=== PATIENT | male | born 1945 | race Caucasian/White ===

== ENCOUNTER 2019-08-26 10:07 | Inpatient (IN) | payer MEDICARE, OTHER, SELFPAY ==
[2019-08-26] VITALS (20 sets, daily range): BP systolic 117–164; BP diastolic 80–96; PULSE 64–101; RESP 16–22; TEMP 36.4–36.7; O2SAT 87–97; BMI 31.7
--- NOTE | 2019-08-26 10:37 | ED_ITS ---
Entered by Cha Sinha, acting as scribe for Aug 26, 2019 10:07 HPI - SOB/Dyspnea General: Chief Complaint: Shortness of Breath/Dyspnea Stated Complaint: Breathing issues Time Seen by Provider: 08/26/19 10:37 Source: patient and family Mode of arrival: ambulatory Limitations: no limitations and physical limitation History of Present Illness: HPI Narrative: 73 yo male presents with shortness of breath and cough. pt states this started a couple days ago. pt has had bilateral leg swelling post heart surgery. family states while in [facility] the pt was recieving breathing treatments but they did not send any home for him and he is having a hard time taking a deep breath. pt denies any other symptoms at this time. MD elicited complaint: shortness of breath and cough Context: other (recent heart surgery) Timing: constant Severity: moderate Exacerbating factors: exertion, coughing and deep breaths Relieving factors: nothing Associated symptoms: Reports other (bilateral leg swelling); Deny abdominal pain, chest pain, fever(s), nausea, polyuria or vomiting Related Data: Home oxygen amount: none Review of Systems Const: Denies: fever or chills Eyes: Denies: change in vision ENMT: Denies: throat pain or mouth pain Card: Denies: chest pain Resp: Reports: shortness of breath GI: Denies: abdominal pain, nausea, vomiting or diarrhea Musc: Denies: back pain or joint pain Skin/Breast: Denies: rash Neuro: Denies: headache or behavioral changes Psych: Reports: depression and suicidal ideation Endo: Denies: excessive urination Sonu/Lymph: Denies: easy bruising All/Imm: Denies: hives PFSH ED PFSH: Statuses (acute, chronic, etc) shown below reflect problem list status as previously entered and may not be historically accurate Surgical History (Updated 08/26/19 @ 16:10 by Jaron Alvarado MD) History of aortic valve replacement (Acute) History of coronary artery bypass graft x 3 (Acute) Family History (Updated 08/26/19 @ 16:02 by Jaron Alvarado MD) Other Diabetes Social History (Updated 08/26/19 @ 16:02 by Jaron Alvarado MD) Smoking and tobacco status: former smoker Alcohol intake: never Substance/Drug Use: never Physical Exam Const: COMMON NORMALS: no apparent distress and healthy appearing HENMT: COMMON NORMALS: normocephalic and external nose normal HEAD & SCALP: normocephalic NOSE: external nose normal and no nasal discharge (nasal dischage) Eye: COMMON NORMALS: PERRL PUPIL: Yes PERRL Neck/C-Spine: COMMON NORMALS: full ROM and no lymphadenopathy Chest: COMMONS NORMALS: inspection of chest normal Resp: COMMON NORMALS: normal respiratory effort and clear to auscultation bilaterally AUSCULTATION: clear to auscultation bilaterally Cardio: COMMON NORMALS: regular rate and regular rhythm RATE: regular rate RHYTHM: regular rhythm GI: COMMON NORMALS: soft to palpation PALPATION: Yes soft Extremity: COMMON NORMALS: normal to inspection, full ROM and normal capillary refill NARRATIVE EXTREMITY EXAM: 2 le edema Psych: COMMON NORMALS: mental status grossly normal and cooperative Skin: COMMON NORMALS: no rashes or lesions noted GENERAL SKIN EXAM: no rashes or lesions noted Course Vital Signs: Vital signs: Vital Signs Temperature 97.8 F 08/26/19 10:26 Pulse Rate 84 08/26/19 14:35 Respiratory Rate 16 08/26/19 14:35 Blood Pressure 117/82 08/26/19 14:35 Pulse Oximetry 96 08/26/19 14:35 MDM - SOB/Dyspnea MDM Narrative: Medical decision making narrative: Patient presents with dyspnea with pulmonary edema with versus pneumonia. Patient does have a history of CHF and given Lasix here. Patient also received antibiotics for possible pneumonia. He does have shortness of breath and symptoms consistent with CHF. I spoke to hospitalist and will admit. Lab Data: Labs: Lab Results 08/26/19 08/26/19 08/26/19 Range/Units 11:05 11:05 11:05 WBC 7.4 (4.0-10.0) 10^3/ uL RBC 4.63 (4.1-5.3) 10^6/u L Hgb 13.3 (11.7-16.6) g/dL Hct 40.0 L (42.0-52.0) % MCV 86.4 (80-94) fL MCH 28.7 (28.0-34.0) pg MCHC 33.3 (30.0-36.0) g/dL RDW 12.7 (12.1-15.1) % Plt Count 96 L (130-400) 10^3/c mm MPV 12.4 H (7.4-10.4) fL Neut % (Auto) 71.2 % Lymph % (Auto) 17.5 % [place] % (Auto) 8.7 % Eos % (Auto) 1.8 % Baso % (Auto) 0.1 % Neut # (Auto) 5.3 (1.8-7.7) 10^3/u L Lymph # (Auto) 1.3 (0.8-4.8) 10^3/u L [place] # (Auto) 0.6 (0.2-0.9) 10^3/u L Eos # (Auto) 0.1 (0.0-0.8) 10^3/u L Baso # (Auto) 0.0 (0.0-0.1) 10^3/u L Nucleated RBC % (a uto) 0 % Nucleated RBCs # 0.0 /100WBC Specimen Type Sample Site ABG pH (7.35-7.45) ABG pCO2 (35-45) mmHg ABG pO2 (80.0-100.0) mmH g ABG HCO3 (22-26) mmol/L ABG Base Excess (-2.0-2.0) mmol/ L Eze Test Hematocrit (42-52) % Hgb O2 Saturation (95-100) % FiO2 % Education And Training Coordinator ID Sodium 137 (136-145) mmol/L Potassium 3.9 (3.5-5.1) mmol/L Chloride 93 L (98-107) mmol/L Carbon Dioxide 33 H (22-29) mmol/L Anion Gap 14.9 (5-19) BUN 17 (8-23) mg/dL Creatinine 0.8 (0.7-1.2) mg/dL Glucose 126 H (74-106) mg/dL Calcium 9.8 (8.8-10.2) mg/Dl Total Bilirubin 0.7 (0.15-1.2) mg/dL AST 40 (0-40) U/L ALT 58 H (0-41) U/L Alkaline Phosphata se 97 (40-130) IU/L Troponin T Baselin e 60 H (0-15) ng/mL Troponin T 120 [place] (0-15) ng/mL Delta Troponin T (0-10) ABS# NT-Pro-B Natriuret Pep 1196 H (0-450) pg/mL Total Protein 6.4 L (6.6-8.7) g/dL Albumin 4.3 (3.5-5.2) g/dL Globulin 2.1 (1.3-4.6) g/dL 08/26/19 08/26/19 Range/Units 11:10 13:40 WBC (4.0-10.0) 10^3/ uL RBC (4.1-5.3) 10^6/u L Hgb (11.7-16.6) g/dL Hct (42.0-52.0) % MCV (80-94) fL MCH (28.0-34.0) pg MCHC (30.0-36.0) g/dL RDW (12.1-15.1) % Plt Count (130-400) 10^3/c mm MPV (7.4-10.4) fL Neut % (Auto) % Lymph % (Auto) % [place] % (Auto) % Eos % (Auto) % Baso % (Auto) % Neut # (Auto) (1.8-7.7) 10^3/u L Lymph # (Auto) (0.8-4.8) 10^3/u L [place] # (Auto) (0.2-0.9) 10^3/u L Eos # (Auto) (0.0-0.8) 10^3/u L Baso # (Auto) (0.0-0.1) 10^3/u L Nucleated RBC % (a uto) % Nucleated RBCs # /100WBC Specimen Type Arterial Sample Site Radial, left ABG pH 7.53 H (7.35-7.45) ABG pCO2 42.0 (35-45) mmHg ABG pO2 53.0 L (80.0-100.0) mmH g ABG HCO3 34.6 H (22-26) mmol/L ABG Base Excess 10.7 H (-2.0-2.0) mmol/ L Eze Test Pos Hematocrit 43.2 (42-52) % Hgb O2 Saturation 89.0 L (95-100) % FiO2 21.0 % Education And Training Coordinator ID ed Sodium (136-145) mmol/L Potassium (3.5-5.1) mmol/L Chloride (98-107) mmol/L Carbon Dioxide (22-29) mmol/L Anion Gap (5-19) BUN (8-23) mg/dL Creatinine (0.7-1.2) mg/dL Glucose (74-106) mg/dL Calcium (8.8-10.2) mg/Dl Total Bilirubin (0.15-1.2) mg/dL AST (0-40) U/L ALT (0-41) U/L Alkaline Phosphata se (40-130) IU/L Troponin T Baselin e (0-15) ng/mL Troponin T 120 [place] 63.91 H (0-15) ng/mL Delta Troponin T 3.91 (0-10) ABS# NT-Pro-B Natriuret Pep (0-450) pg/mL Total Protein (6.6-8.7) g/dL Albumin (3.5-5.2) g/dL Globulin (1.3-4.6) g/dL Imaging Data^: CXR: Attestation: I personally reviewed and interpreted this imaging study as follows: My impression: no acute abnormalities noted CT Chest: Radiologist's impression: Ordering Physician: Gagan Sandoval MD Date of Service: 08/26/19 Procedure(s): CT angio chest PE protcl [id number] Accession Number(s): [id number] cc: Gagan Sandoval MD PROCEDURE INFORMATION: Exam: CT Angiography Chest With Contrast Exam date and time: 08/26/2019 1:32 PM Age: 73 years old Clinical indication: Shortness of breath; Prior surgery; Surgery date: <1 month; Surgery type: Open heart; Additional info: Dyspnea TECHNIQUE: Imaging protocol: Computed tomographic angiography of the chest with intravenous contrast. 3D rendering: MIP and/or 3D reconstructed images were created by the technologist. Total DLP: 1162.54 mGy-cm Radiation optimization: All CT scans at this facility use at least one of these dose optimization techniques: automated exposure control; mA and/or kV adjustment per patient size (includes targeted exams where dose is matched to clinical indication); or iterative reconstruction. Contrast material: OMNI 350; Contrast volume: 95 ml; Contrast route: RT AC; COMPARISON: CT[place] [id number] 08/17/2019 4:40 PM FINDINGS: Pulmonary arteries: Normal. No pulmonary emboli. Aorta: Moderate aortic arch and great vessel atherosclerotic calcification. Lungs: Numerous small acinar opacities throughout portions of both lungs which appear new or increased since 08/17/19 suggesting acute mild alveolitis/pneumonitis. Minor scarring with calcification left lung apex. Scattered calcified granulomas, chronic. Pleural space: Small right pleural effusion, resolved. Extensive chronic pleural calcification along left hemidiaphragm. Heart: Recent sternotomy with aortic valve region stent in place. Mediastinum: Postoperative anterior mediastinal fluid and air, improving. Lymph nodes: Benign calcified hilar and mediastinal lymph nodes. Bones/joints: Unremarkable. No acute fracture. Soft tissues: Unremarkable. CT/CT angio chest PE protcl [id number] IMPRESSION: 1)Numerous small acinar opacities throughout portions of both lungs which appear new or increased since 08/17/19 suggesting acute mild alveolitis/pneumonitis. 2) recent sternotomy. Postoperative anterior mediastinal fluid and air, improving. EKG Data^: EKG 1: Attestation: I personally reviewed and interpreted this EKG as follows: EKG Interpretation Date: 08/26/19 EKG interpretation time: 11:23 Interpretation: afib hr 87 with no s tor t wave abnormalities qrs 127 qtc 443 EKG 2: Attestation: I personally reviewed and interpreted this EKG as follows: EKG Interpretation Date: 08/26/19 EKG interpretation time: 13:02 Interpretation: Atrial fib heart rate [address] or T wave abnormalities. Discharge Plan Discharge Admit Provider: Jaron Alvarado Coding Level of Care Code ED Director Of Undergraduate Admissions for Chg Fwd Exam Problem Focused The documentation recorded by the Bharath jorge Bridget Annette, accurately reflects the service I personally performed and the decisions made by , Gagan Sandoval MD Aug 26, 2019 10:07
--- NOTE | 2019-08-26 10:42 | XRR_ITS ---
PROCEDURE INFORMATION: Exam: XR Chest, 1 View Exam date and time: 08/26/2019 10:54 AM Age: 73 years old Clinical indication: Shortness of breath; Prior surgery; Surgery date: 6+ months; Surgery type: Open heart; Additional info: Dyspnea TECHNIQUE: Imaging protocol: XR of the chest Views: 1 view. COMPARISON: CR Chest 1 [place] [id number] 08/17/2019 2:35 PM FINDINGS: Lungs: Prominent bibasilar lung markings, chronic. Pleural space: Small left pleural effusion. Heart/Mediastinum: Prior CABG. Aortic valve stent in place. Diaphragm: Chronic pleural calcification along left hemidiaphragm. Bones/joints: Unremarkable. XR/XR chest 1V portable [id number] IMPRESSION: No apparent change from 08/17/19. Prior surgeries. Probable small left pleural effusion, unchanged.
--- NOTE | 2019-08-26 10:43 | ECG_ITS ---
Measurements Intervals [place] Rate: 87 P: [place]: 0 QRS: 29 QRSD: 127 T: 203 QT: 398 QTc: 481 ATRIAL FIBRILLATION MODERATE INTRAVENTRICULAR CONDUCTION DELAY ST DEVIATION AND MODERATE T-WAVE ABNORMALITY, CONSIDER LATERAL ISCHEMIA Compared to ECG 08/17/2019 16:05:24 Intraventricular conduction delay now present T-wave abnormality now present Possible ischemia now present Sinus rhythm no longer present Ventricular premature complex(es) no longer present Atrial abnormality no longer present Right-axis deviation no longer present Myocardial infarct finding no longer present Electronically Signed On 08-26-2019 11:23:22 HOT STRIP MILL INSPECTOR by Gloria Batista M.D. [id number]
[2019-08-26] MEDS: ipratropium-albuterol 3 mL Neb INHALATION ×3 (11:14→23:26)
[2019-08-26 11:23] LABS: ABG PH Result 7.53 (7.35-7.45); Arterial Blood Gas Hematocrit 43.2 % (42-52); Base Excess ABG 10.7 mmol/L (-2.0-2.0); Blood Gas Allen Test Pos; Blood Gas Sample Site Radial, left; Blood Gas Sample Type Arterial; HCO3 ABG 34.6 mmol/L (22-26)
[2019-08-26 11:34] LABS: Basophils % 0.1 %; Eosinophils # 0.1 10^3/uL (0.0-0.8); Eosinophils % 1.8 %; Hemoglobin 13.3 g/dL (11.7-16.6); Lymphocytes # 1.3 10^3/uL (0.8-4.8); Lymphocytes % 17.5 %; Mean Corpuscular HGB Conc 33.3 g/dL (30.0-36.0); Mean Corpuscular Hemoglobin 28.7 pg (28.0-34.0); Mean Corpuscular Volume 86.4 fL (80-94); Mean Platelet Volume 12.4 fL (7.4-10.4); Monocytes # 0.6 10^3/uL (0.2-0.9); Monocytes % 8.7 %; Neutrophils # 5.3 10^3/uL (1.8-7.7); Neutrophils % 71.2 %; Nucleated Red Blood Cells % 0 %; Platelet Count 96 10^3/cmm (130-400); Red Blood Count 4.63 10^6/uL (4.1-5.3); Red Cell Distribution Width 12.7 % (12.1-15.1); White Blood Count 7.4 10^3/uL (4.0-10.0)
[2019-08-26] MEDS: FUROsemide 10 mg/mL SDV 4mL 40 MG IVP ×2 (11:36→17:56)
[2019-08-26 12:00] LABS: Troponin(5th) Baseline 60 ng/mL (0-15)
[2019-08-26 12:08] LABS: Alanine Aminotransferase 58 U/L (0-41); Albumin Level 4.3 g/dL (3.5-5.2); Alkaline Phosphatase 97 IU/L (40-130); Anion Gap 14.9 (5-19); Aspartate Amino Transferase 40 U/L (0-40); Blood Urea Nitrogen 17 mg/dL (8-23); Calcium 9.8 mg/Dl (8.8-10.2); Carbon Dioxide 33 mmol/L (22-29); Chloride 93 mmol/L (98-107); Globulin 2.1 g/dL (1.3-4.6); Glucose 126 mg/dL (74-106); NT Pro B Type Natriuretic Pept 1196 pg/mL (0-450); Potassium 3.9 mmol/L (3.5-5.1); Sodium 137 mmol/L (136-145); Total Bilirubin 0.7 mg/dL (0.15-1.2); Total Protein 6.4 g/dL (6.6-8.7)
--- NOTE | 2019-08-26 12:36 | CTR_ITS ---
PROCEDURE INFORMATION: Exam: CT Angiography Chest With Contrast Exam date and time: 08/26/2019 1:32 PM Age: 73 years old Clinical indication: Shortness of breath; Prior surgery; Surgery date: <1 month; Surgery type: Open heart; Additional info: Dyspnea TECHNIQUE: Imaging protocol: Computed tomographic angiography of the chest with intravenous contrast. 3D rendering: MIP and/or 3D reconstructed images were created by the technologist. Total DLP: 1162.54 mGy-cm Radiation optimization: All CT scans at this facility use at least one of these dose optimization techniques: automated exposure control; mA and/or kV adjustment per patient size (includes targeted exams where dose is matched to clinical indication); or iterative reconstruction. Contrast material: OMNI 350; Contrast volume: 95 ml; Contrast route: RT AC; COMPARISON: CTA Chest-Pulmonary Emb [id number] 08/17/2019 4:40 PM FINDINGS: Pulmonary arteries: Normal. No pulmonary emboli. Aorta: Moderate aortic arch and great vessel atherosclerotic calcification. Lungs: Numerous small acinar opacities throughout portions of both lungs which appear new or increased since 08/17/19 suggesting acute mild alveolitis/pneumonitis. Minor scarring with calcification left lung apex. Scattered calcified granulomas, chronic. Pleural space: Small right pleural effusion, resolved. Extensive chronic pleural calcification along left hemidiaphragm. Heart: Recent sternotomy with aortic valve region stent in place. Mediastinum: Postoperative anterior mediastinal fluid and air, improving. Lymph nodes: Benign calcified hilar and mediastinal lymph nodes. Bones/joints: Unremarkable. No acute fracture. Soft tissues: Unremarkable. CT/CT angio chest PE protcl [id number] IMPRESSION: 1)Numerous small acinar opacities throughout portions of both lungs which appear new or increased since 08/17/19 suggesting acute mild alveolitis/pneumonitis. 2) recent sternotomy. Postoperative anterior mediastinal fluid and air, improving. Radiation Dose CTDIVOL = (mGy): DLP = 1162.54 (mGy-cm)
[2019-08-26] MEDS: morphine 4 mg/mL SDV 1 mL IVP (12:53)
[2019-08-26 14:01] LABS: Troponin 5 2HR 63.91 ng/mL (0-15)
[2019-08-26] MEDS: iohexol 350 mg/mL 100 mL Btl IV (14:08)
[2019-08-26 14:13] LABS: Troponin 5 2HR Delta 3.91 ABS# (0-10)
[2019-08-26] MEDS: cefTRIAXone 1,000 MG in sodium chloride 0.9% (plus) 50 ML 100 MG IV (15:35)
[2019-08-26] MEDS: azithromycin 500 MG in sodium chloride 0.9% 250 ML 250 MG IV (15:53)
--- NOTE | 2019-08-26 15:55 | PM.HP ---
Providers/Chief Complaint Admitting Physician: Jaron Alvarado MD Primary Care Provider: Дмитрий Santiago DO Chief Complaint: Breathing issues History of Present Illness Dakota Mercado is a 73 year old male with a past medical history of COPD, atrial fibrillation on Eliquis, CAD status post triple vessel CABG, aortic stenosis status post aortic valve replacement, hyperlipidemia, hypertension, diastolic CHF, abdominal aortic aneurysm, carotid artery stenosis, who presents to the emergency room due to complaints of cough, shortness of breath, orthopnea, paroxysmal nocturnal dyspnea. Patient states that on August 10, 2019 he had a triple-vessel coronary artery bypass graft with aortic valve replacement at [facility] in [place], he was discharged on August 15. But when he got home, he lives in [facility], with 2 sons, he complained of difficulty catching his breath, productive cough, shortness of breath, shortness of breath at rest, paroxysmal nocturnal dyspnea, orthopnea. He was transferred back to [facility], was treated for pneumonia, he is not sure what else happened during that hospitalization. But states that he got back, August 17, states that since then he has not gotten any better, still quite short of breath, short of breath at rest, has significant orthopnea, paroxysmal nocturnal dyspnea, difficulty sleeping, has chest wall pain, has a good appetite, no nausea, no vomiting denies LOC, denies lightheadedness, denies dizziness. Denies sick contacts. Denies fevers. Review of Systems Const: Reports: fatigue, malaise and daytime sleepiness; Denies: fever or chills Eyes: Denies: change in vision ENMT: Denies: nasal discharge Card: Reports: shortness of breath on exertion and shortness of breath when lying down; Denies: chest pain, palpitations, irregular heart rhythm or syncope Resp: Reports: shortness of breath, productive cough and chest congestion GI: Denies: abdominal pain, nausea, vomiting, coffee grounds in vomit, difficulty swallowing or painful bowel movements : Denies: flank pain, difficulty urinating, painful urination, urinary frequency, urinary urgency or urinary hesitancy Musc: Denies: neck pain or back pain Skin/Breast: Denies: rash or itching Neuro: Denies: headache Psych: Denies: anxiety or depression Endo: Reports: tired all the time; Denies: excessive urination or excessive thirst Medications/Allergies Home Medications Medication Instructions Recorded Confirmed Last Taken Type albuterol sulfate 1 puff INHALATION Q4H PRN 08/26/19 08/26/19 08/26/19 History amiodarone 200 mg PO DAILY 08/26/19 08/26/19 08/26/19 History apixaban [Eliquis] 5 mg PO DAILY 08/26/19 08/26/19 08/26/19 History aspirin 1 tab PO DAILY 08/26/19 08/26/19 08/25/19 History atorvastatin [Lipitor] 40 mg PO DAILY 08/26/19 08/26/19 08/26/19 History colchicine [Colcrys] 0.6 mg PO DAILY 08/26/19 08/26/19 08/26/19 History diltiazem HCl 30 mg PO Q6H 08/26/19 08/26/19 08/26/19 History doxycycline hyclate 100 mg PO BID 08/26/19 08/26/19 08/25/19 History finasteride 5 mg PO DAILY 08/26/19 08/26/19 08/25/19 History furosemide [Lasix] 40 mg PO BID 08/26/19 08/26/19 08/26/19 History guaifenesin [Mucinex] 600 mg PO BID 08/26/19 08/26/19 08/25/19 History ibuprofen 400 mg PO Q4H PRN 08/26/19 08/26/19 08/26/19 History potassium chloride 20 meq PO BID 08/26/19 08/26/19 08/25/19 History tamsulosin [Flomax] 0.4 mg PO BID 08/26/19 08/26/19 08/25/19 History Allergies Allergy/AdvReac Type Severity Reaction Status Date / Time No Known Drug Allergies Allergy Unknown Verified 08/26/19 10:34 PFSH Acute PFSH: Statuses (acute, chronic, etc) shown below reflect problem list status as previously entered and may not be historically accurate Surgical History (Updated 08/26/19 @ 16:10 by Jaron Alvarado MD) History of aortic valve replacement (Acute) History of coronary artery bypass graft x 3 (Acute) Family History (Updated 08/26/19 @ 16:02 by Jaron Alvarado MD) Other Diabetes Social History (Updated 08/26/19 @ 16:02 by Jaron Alvarado MD) Smoking and tobacco status: former smoker Alcohol intake: never Substance/Drug Use: never Vitals/I&O/Wt Last Vital Signs Temp 97.8 F 08/26/19 10:26 Pulse 84 08/26/19 14:35 Resp 16 08/26/19 14:35 BP 117/82 08/26/19 14:35 Pulse Ox 96 08/26/19 14:35 Weight last 48 hrs Weight 100.244 kg Physical Exam Const: COMMON NORMALS: no apparent distress EXAM LIMITATIONS: no altered mental status GENERAL APPEARANCE: cooperative and comfortable NUTRITIONAL APPEARANCE: obese HENMT: COMMON NORMALS: normocephalic Eye: COMMON NORMALS: PERRL and EOMs intact bilaterally Neck/C-Spine: COMMON NORMALS: no lymphadenopathy and no JVD Lymph: LYMPHATIC: no lymphadenopathy noted Chest: COMMONS NORMALS: inspection of chest normal (Has a sternotomy scar) Resp: COMMON NORMALS: normal respiratory effort, no retractions and no use of accessory muscles AUSCULTATION: wheezes throughout Cardio: COMMON NORMALS: no JVD and regular rate RATE: regular rate HEART SOUNDS: S1 normal, S2 normal and no murmurs GI: COMMON NORMALS: normal to inspection, nondistended, normoactive bowel sounds, soft to palpation, non-tender and no hepatosplenomegaly : COMMON NORMALS: Yes no CVA tenderness Back/Pelvis: COMMON NORMALS: no CVA tenderness Extremity: COMMON NORMALS: normal capillary refill, no clubbing, cyanosis or edema and no pedal edema GENERAL: Yes normal exam except as noted Neuro: COMMON NORMALS: oriented x3, CN's II-XII intact bilaterally, moves all extremities and no focal motor deficits Psych: COMMON NORMALS: mental status grossly normal Data Micro: Micro: Microbiology 08/26/19 15:14 Blood Culture - Pr eliminary Blood SPECIMEN [facility] 08/26/19 15:05 Blood Culture - Pr eliminary Blood SPECIMEN [facility] Imaging^: CTA Chest: Radiologist's impression: 1)Numerous small acinar opacities throughout portions of both lungs which appear new or increased since 08/17/19 suggesting acute mild alveolitis/pneumonitis. 2) recent sternotomy. Postoperative anterior mediastinal fluid and air, improving. EKG^: EKG 1: My Interpretation: Atrial flutter, left bundle branch block, A&P Assessment and plan (1) Acute respiratory failure with hypoxia: Likely secondary to atypical pneumonia, COPD exacerbation, diastolic CHF Plan: -Admit to cardiac IMC -Telemetry monitoring -Lasix 40 mg IV twice daily -Rocephin and azithromycin -Solu-Medrol followed by prednisone -Oxygen therapy -Blood cultures, respiratory cultures, urine bacterial antigens Status: Acute Code(s): J96.01 - Acute respiratory failure with hypoxia (2) CAD (coronary artery disease): -Status post triple vessel bypass graft August 10 2018 Status: Acute Code(s): I25.10 - Atherosclerotic heart disease of [place] coronary artery without angina pectoris (3) COPD (chronic obstructive pulmonary disease): Status: Acute Code(s): J44.9 - Chronic obstructive pulmonary disease, unspecified (4) Diastolic CHF: Status: Acute Code(s): I50.30 - Unspecified diastolic (congestive) heart failure (5) Atrial fibrillation: Continue Cardizem, amiodarone, Eliquis Status: Acute Code(s): I48.91 - Unspecified atrial fibrillation (6) Hyperlipidemia: Status: Acute Code(s): E78.5 - Hyperlipidemia, unspecified (7) Hypertension: Status: Acute Code(s): I10 - Essential (primary) hypertension (8) Carotid artery stenosis: Status: Acute Code(s): I65.29 - Occlusion and stenosis of unspecified carotid artery (9) History of aortic valve replacement: August 10, 2019 in [facility], will get records Status: Acute Code(s): Z95.2 - Presence of prosthetic heart valve Attestations Medical Necessity Statement*: Patient requires hospitalization, greater than 2 midnights, acute respiratory failure multifactorial Coding Level of Care Code Acute 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
--- NOTE | 2019-08-26 16:43 | ECG_ITS ---
Measurements Intervals [place] Rate: 84 P: [place]: 0 QRS: 30 QRSD: 118 T: 177 QT: 387 QTc: 458 ATRIAL FIBRILLATION WITH ABERRANT CONDUCTION OR VENTRICULAR PREMATURE COMPLEXES MODERATE INTRAVENTRICULAR CONDUCTION DELAY [110+ ms QRS DURATION] ST DEVIATION AND MODERATE T-WAVE ABNORMALITY, CONSIDER LATERAL ISCHEMIA [-0.1+ mV T WAVE IN I/aVL/V5/V6] Compared to ECG 08/26/2019 11:23:42 Ventricular premature complex(es) now present Aberrant conduction of supraventricular beat(s) now present T-wave abnormality still present Possible ischemia still present Electronically Signed On 08-26-2019 13:29:07 GROUP CONTROLLER by Gloria Batista M.D. [id number]
[2019-08-26] MEDS: tamsulosin 0.4 mg Capsule PO (17:57)
[2019-08-26] MEDS: dilTIAZem 30 mg Tablet PO ×2 (17:57→23:18)
[2019-08-26] MEDS: guaiFENesin 600 mg Tablet PO (17:57)
[2019-08-26] MEDS: apixaban 5 mg Tablet PO (17:57)
[2019-08-26 18:00] LABS: Troponin 5 6HR 65.75 ng/L (0-15)
[2019-08-26] MEDS: lanolin oint 7 gm 1 APPLIC TOPICAL (19:52)
[2019-08-26 19:53] LABS: Troponin 5 6HR Delta 1.84 ng/L (0-12)
[2019-08-27] VITALS (19 sets, daily range): BP systolic 134–162; BP diastolic 66–90; PULSE 52–70; RESP 16–22; TEMP 35.9–36.5; O2SAT 92–99
[2019-08-27] MEDS: ipratropium-albuterol 3 mL Neb INHALATION ×6 (03:34→23:09)
[2019-08-27] MEDS: dilTIAZem 30 mg Tablet PO ×3 (05:27→17:06)
[2019-08-27 06:11] LABS: Basophils % 0.2 %; Hemoglobin 12.6 g/dL (11.7-16.6); Lymphocytes # 0.5 10^3/uL (0.8-4.8); Lymphocytes % 9.3 %; Mean Corpuscular HGB Conc 32.3 g/dL (30.0-36.0); Mean Corpuscular Hemoglobin 28.4 pg (28.0-34.0); Mean Platelet Volume 11.9 fL (7.4-10.4); Monocytes # 0.1 10^3/uL (0.2-0.9); Neutrophils # 4.4 10^3/uL (1.8-7.7); Neutrophils % 88.1 %; Nucleated Red Blood Cells % 0 %; Platelet Count 80 10^3/cmm (130-400); Red Blood Count 4.43 10^6/uL (4.1-5.3); Red Cell Distribution Width 12.8 % (12.1-15.1)
[2019-08-27 06:31] LABS: Alanine Aminotransferase 64 U/L (0-41); Albumin Level 3.9 g/dL (3.5-5.2); Alkaline Phosphatase 106 IU/L (40-130); Anion Gap 13.1 (5-19); Aspartate Amino Transferase 41 U/L (0-40); Blood Urea Nitrogen 18 mg/dL (8-23); Carbon Dioxide 35 mmol/L (22-29); Chloride 92 mmol/L (98-107); Glucose 173 mg/dL (74-106); Magnesium 2.1 mg/dL (1.7-2.3); Phosphorus 3.9 mg/dL (2.5-4.5); Potassium 4.1 mmol/L (3.5-5.1); Sodium 136 mmol/L (136-145); Total Bilirubin 0.5 mg/dL (0.15-1.2); Total Protein 6.9 g/dL (6.6-8.7)
[2019-08-27] MEDS: amiodarone 200 mg Tablet PO (08:53)
[2019-08-27] MEDS: aspirin 81 mg EC Tablet PO (08:53)
[2019-08-27] MEDS: atorvastatin 40 mg Tablet PO (08:53)
[2019-08-27] MEDS: finasteride 5 mg Tablet PO (08:53)
[2019-08-27] MEDS: tamsulosin 0.4 mg Capsule PO ×2 (08:53→17:06)
[2019-08-27] MEDS: apixaban 5 mg Tablet PO ×2 (08:53→17:06)
[2019-08-27] MEDS: guaiFENesin 600 mg Tablet PO ×2 (08:53→17:06)
[2019-08-27] MEDS: cefTRIAXone 1,000 MG in sodium chloride 0.9% (plus) 50 ML 100 MG IV (08:58)
[2019-08-27] MEDS: FUROsemide 10 mg/mL SDV 4mL 40 MG IVP ×3 (09:40→22:41)
--- NOTE | 2019-08-27 11:08 | USCV_ITS ---
Dakota Mercado Age: 73 Gender: M : 1945 Exam Date: 08/27/2019 12:22 Ordering Phys: Jaron Alvarado MD Technologist: Meera Waters Exam Location: [facility] Indication: SOB, SIMONA BP: 138 / 90 HR: 59 Rhythm: Sinus Technical Quality: Adequate MEASUREMENTS (Male / Female) Normal Values 2D ECHO LV Diastolic Diameter PLAX 4.7 cm 4.2 - 5.9 / 3.9 - 5.3 cm LV Systolic Diameter PLAX 2.9 cm IVS Diastolic Thickness 1.2 cm 0.6 - 1.0 / 0.6 - 0.9 cm IVS Systolic Thickness 2.0 cm LVPW Diastolic Thickness 1.3 cm 0.6 - 1.0 / 0.6 - 0.9 cm LVPW Systolic Thickness 1.9 cm LVOT Diameter 2.1 cm LV Ejection Fraction 2D Teich 67.0 % LV Ejection Fraction MOD 2C 80.7 % LV Ejection Fraction 2C AL 80.7 % LA Diameter 4.3 cm LA Width 3.1 cm LA Height 6.4 cm RA Width 3.5 cm RA Height 4.5 cm M-MODE LV Diastolic Diameter MM 5.6 cm 4.2 - 5.9 / 3.9 - 5.3 cm LV Systolic Diameter MM 3.9 cm LV Ejection Fraction MM Teich 58.6 % IVS Diastolic Thickness MM 1.1 cm 0.6 - 1.0 / 0.6 - 0.9 cm IVS Systolic Thickness MM 1.1 cm LVPW Diastolic Thickness MM 1.4 cm 0.6 - 1.0 / 0.6 - 0.9 cm LVPW Systolic Thickness MM 2.0 cm Aortic Annulus Diameter 3.6 cm LA Ao Ratio MM 1.2 MV E Point Septal Separation 0.5 cm DOPPLER AV Peak Velocity 338.0 cm/s LVOT Peak Velocity 140.0 cm/s AV Area Cont Eq vti 1.3 cm squared AV Area Cont Eq pk 1.5 cm squared MV Peak Velocity 121.0 cm/s MV Area PHT 2.8 cm squared Mitral E to A Ratio 0.7 MV E' Velocity 5.0 cm/s Mitral E to MV E' Ratio 12.9 Mitral E to LV E' Lateral Ratio 19.3 Mitral E to LV E' Septal Ratio 9.8 TR Peak Velocity 299.0 cm/s TR Peak Gradient 35.7 mmHg Right Atrial Pressure 3.0 mmHg Pulmonary Artery Systolic Pressu 38.8 mmHg PV Peak Velocity 156.0 cm/s RV Acceleration Time 0.1 s FINDINGS Left Ventricle Normal left ventricular cavity size. Normal left ventricular systolic function. No regional wall motion abnormalities. Left ventricular ejection fraction is estimated at 58 %. No regional wall motion abnormalities. Grade II/IV diastolic dysfunction, moderately elevated filling pressures. Right Ventricle The right ventricle is normal in size and function. Right Atrium The right atrium is normal in size. Left Atrium The left atrium is normal in size. Mitral Valve Moderately thickened mitral valve. Moderate mitral annular calcification. No mitral valve stenosis. Trace mitral valve regurgitation. Aortic Valve Possible bioprosthetic aortic valve sitting in normal position without valvular or perivalvular leak. Tricuspid Valve Trace tricuspid valve regurgitation. Pulmonic Valve Structurally normal pulmonic valve without significant stenosis. There is no pulmonic regurgitation. Pericardium Normal pericardium without effusion. Aorta Normal ascending aorta dimension. CONCLUSIONS 1-Normal left ventricular cavity size. Normal left ventricular systolic function. No regional wall motion abnormalities. Left ventricular ejection fraction is estimated at 58 %. No regional wall motion abnormalities. Grade II/IV diastolic dysfunction, moderately elevated filling pressures. 2-Moderately thickened mitral valve. Moderate mitral annular calcification. No mitral valve stenosis. Trace mitral valve regurgitation. 3-Possible prosthetic valve sitting in normal position without significant valvular or perivalvular leak. 4-Trace tricuspid valve regurgitation. 5-There is no pericardial effusion. 6-When compared to the prior echocardiogram dated 04/24/2019 there appeared to be possible bioprosthetic aortic valve sitting and working in normal position without valvular or perivalvular leak. Laureen Squires MD (Electronically Signed) Final Date: 27 August 2019 17:29 S
[2019-08-27] MEDS: predniSONE 20 mg Tablet 40 MG PO (12:20)
[2019-08-27] MEDS: colchicine 0.6 mg Tablet PO (12:21)
--- NOTE | 2019-08-27 12:37 | PC.RESP ---
Patient given information on Pulmonary Rehab.
--- NOTE | 2019-08-27 15:31 | US_ITS ---
WS: [id number] Gallbladder ultrasound, 08/27/2019 Clinical Data: us liver Comparison: None. Findings: The gallbladder shows no sludge or stone. The wall is not thickened with no pericholecystic fluid. The common bile duct is 4.1 mm and there are no intraductal abnormalities. Liver shows no cysts, masses or dilated intrahepatic ducts. The liver is enlarged measuring 21.51 cm in greatest AP diameter. The pancreas is obscured by overlying bowel gas but no cyst, pseudocyst, or evidence of pancreatitis is noted. Right kidney measures 13.6 cm with a cyst measuring 1.61 x 1.79 x 2.03 cm. The aorta and inferior carlos a cava show no vascular abnormalities. US/US abdomen limited [id number] Impression: 1. Negative gallbladder. 2. Enlarged liver. 3. Small right renal cyst.
[2019-08-27] MEDS: azithromycin 500 MG in sodium chloride 0.9% 250 ML 250 MG IV (15:50)
[2019-08-27 16:41] LABS: Hepatitis A Antibody IgM. Non-Reactive (Nonreactive); Hepatitis B Core IgM Non-Reactive (Nonreactive); Hepatitis B Surface Antigen. Non-Reactive (Nonreactive); Hepatitis C Virus Antibody Non-Reactive (Nonreactive)
--- NOTE | 2019-08-27 17:42 | P.PN_ITS ---
Subjective Subjective: Interval history: This morning, patient sitting up into a chair, states his breathing has improved, denies chest pain, denies palpitations, no lightheadedness, no dizziness, no nausea, no vomiting, Vitals/I&O/Wt Last Vital Signs Temp 97.6 F 08/27/19 15:00 Pulse 63 08/27/19 15:25 Resp 18 08/27/19 15:19 BP 157/66 08/27/19 15:00 Pulse Ox 95 08/27/19 15:19 08/27/19 08/27/19 08/27/19 06:59 14:59 22:59 Intake Total 960 / 1010 820 / 820 220 / 1040 Output Total 500 / 2300 1050 / 1050 Balance 460 / -1290 -230 / -230 220 / -10 Weight last 48 hrs Weight 101.151 kg Weight 101.151 kg Weight 100.244 kg Physical Exam Const: COMMON NORMALS: no apparent distress and oriented x3 EXAM LIMITATION S: no altered mental status GENERAL APPEARANCE: cooperative and comfortable NUTRITIONAL APPEARANCE: obese HENMT: COMMON NORMALS: normocephalic HEAD & SCALP: normocephalic Eye: COMMON NORMALS: PERRL and EOMs intact bilaterally PUPIL: Yes PERRL Neck/C-Spine: COMMON NORMALS: no lymphadenopathy and no JVD Lymph: LYMPHATIC: no lymphadenopathy noted Chest: COMMONS NORMALS: inspection of chest normal (Has a sternotomy scar) Resp: COMMON NORMALS: normal respiratory effort, no retractions and no use of accessory muscles AUSCULTATION: wheezes throughout Cardio: COMMON NORMALS: no JVD, regular rate, S1 normal heart sound and S2 no rmal heart sound RATE: regular rate HEART SOUNDS: S1 normal, S2 normal and no murmurs GI: COMMON NORMALS: normal to inspection, nondistended, normoactive bowel sounds, soft to palpation, non-tender and no hepatosplenomegaly PALPATION: Yes soft and Yes no hepatosplenomegaly : COMMON NORMALS: Yes no CVA tenderness BLADDER/KIDNEY EXAM: Yes no CVA tenderness Back/Pelvis: COMMON NORMALS: no CVA tenderness Extremity: COMMON NORMALS: normal capillary refill, no clubbing, cyanosis or edema and no pedal edema GENERAL: Yes normal exam except as noted Neuro: COMMON NORMALS: oriented x3 Data Micro: Micro: Microbiology 08/26/19 15:05 Blood Culture - Pr eliminary Blood NEGATIVE TO MICA E 08/26/19 15:14 Blood Culture - Pr eliminary Blood NEGATIVE TO MICA E 08/27/19 04:10 Bacterial Antigens - Final Urine,Voided A&P Assessment and plan (1) Acute respiratory failure with hypoxia: Likely secondary to atypical pneumonia, COPD exacerbation, diastolic CHF Plan: -Admit to cardiac IMC -Telemetry monitoring -Lasix 40 mg IV twice daily -Rocephin and azithromycin -Prednisone -Oxygen therapy -Blood cultures, respiratory cultures, urine bacterial antigens Status: Acute Code(s): J96.01 - Acute respiratory failure with hypoxia (2) CAD (coronary artery disease): -Status post triple vessel bypass graft August 10 2018 Status: Acute Code(s): I25.10 - Atherosclerotic heart disease of [place] coronary artery without angina pectoris (3) COPD (chronic obstructive pulmonary disease): Status: Acute Code(s): J44.9 - Chronic obstructive pulmonary disease, unspecified (4) Diastolic CHF: Status: Acute Code(s): I50.30 - Unspecified diastolic (congestive) heart failure (5) Atrial fibrillation: Continue Cardizem, amiodarone, Eliquis Status: Acute Code(s): I48.91 - Unspecified atrial fibrillation (6) Hyperlipidemia: Status: Acute Code(s): E78.5 - Hyperlipidemia, unspecified (7) Hypertension: Status: Acute Code(s): I10 - Essential (primary) hypertension (8) Carotid artery stenosis: Status: Acute Code(s): I65.29 - Occlusion and stenosis of unspecified carotid artery (9) History of aortic valve replacement: August 10, 2019 in [facility], will get records Status: Acute Code(s): Z95.2 - Presence of prosthetic heart valve (10) Sinus bradycardia: Status: Acute Code(s): R00.1 - Bradycardia, unspecified (11) Sinus pause: -Patient's telemetry monitoring clinic showing frequent sinus pauses, sinus bradycardia, patient asymptomatic Plan: -We will get a cardiac echocardiogram -Cardiology has been consulted Status: Acute Code(s): I45.5 - Other specified heart block Attestations Medical Necessity Statement*: Patient requires hospitalization, for acute respiratory failure, sinus pauses Coding Level of Care Code Acute [employer] for [facility] Fwd Diagnoses Acute respiratory failure with hypoxia J96.01 CAD (coronary artery disease) I25.10 COPD (chronic obstructive pulmonary disease) J44.9 Diastolic CHF I50.30 Atrial fibrillation I48.91 Hyperlipidemia E78.5 Hypertension I10 Carotid artery stenosis I65.29 History of aortic valve replacement Z95.2 Sinus bradycardia R00.1 Sinus pause I45.5
--- NOTE | 2019-08-27 19:06 | PC.NURSE ---
INTRODUCTION OF STAFF AND REPORT RECEIVED, AIDET. SON CALLED TO CHECK ON PT, REPORT RELAYED.
--- NOTE | 2019-08-27 19:24 | PM.CONSULT ---
Providers/Reason For Consult Consulting Physican/Specialty*: Cardiology Reason for Consult*: Decompensated diastolic heart failure/significant bradycardia Attending Physician: Jaron Alvarado MD Primary Care Provider: Дмитрий Santiago DO History of Present Illness History of Present Illness I was asked by Dr. Salmeron tto assist in care of 73-year-old male patient of Dr. Cruz who recently underwent CABG and aortic valve Replacement at [facility] on 10 of August. He was discharged from the hospital on the of last month. For few days he did fine later he started noticing worsening of shortness of breath leading to PND and orthopnea. 2 days back patient came to ER as he was not able to breathe even while sitting up talking. He was admitted on the floor and treated for CHF exacerbation with IV diuresis. On the telemetry he was noted to have sinus bradycardia with heart rate dropped down into 40s Review of Systems Const: Reports: fatigue, malaise and daytime sleepiness; Denies: fever or chills Eyes: Denies: change in vision ENMT: Denies: throat pain, mouth pain or nasal discharge Card: Reports: shortness of breath on exertion and shortness of breath when lying down; Denies: chest pain, palpitations, irregular heart rhythm or syncope Resp: Reports: shortness of breath, productive cough and chest congestion GI: Denies: abdominal pain, nausea, vomiting, coffee grounds in vomit, difficulty swallowing, diarrhea or painful bowel movements : Denies: flank pain, difficulty urinating, painful urination, urinary frequency, urinary urgency or urinary hesitancy Musc: Denies: neck pain, back pain or joint pain Skin/Breast: Denies: rash or itching Neuro: Denies: headache or behavioral changes Psych: Reports: suicidal ideation; Denies: anxiety or depression Endo: Reports: tired all the time; Denies: excessive urination or excessive thirst Sonu/Lymph: Denies: easy bruising All/Imm: Denies: hives Meds/Allergies Home Medications and Allergies Home Medications Medication Instructions Recorded Confirmed Type albuterol sulfate 1 puff INHALATION Q4H PRN 08/26/19 08/26/19 History amiodarone 200 mg PO DAILY 08/26/19 08/26/19 History apixaban [Eliquis] 5 mg PO DAILY 08/26/19 08/26/19 History aspirin 1 tab PO DAILY 08/26/19 08/26/19 History atorvastatin [Lipitor] 40 mg PO DAILY 08/26/19 08/26/19 History colchicine [Colcrys] 0.6 mg PO DAILY 08/26/19 08/26/19 History diltiazem HCl 30 mg PO Q6H 08/26/19 08/26/19 History doxycycline hyclate 100 mg PO BID 08/26/19 08/26/19 History finasteride 5 mg PO DAILY 08/26/19 08/26/19 History furosemide [Lasix] 40 mg PO BID 08/26/19 08/26/19 History guaifenesin [Mucinex] 600 mg PO BID 08/26/19 08/26/19 History ibuprofen 400 mg PO Q4H PRN 08/26/19 08/26/19 History potassium chloride 20 meq PO BID 08/26/19 08/26/19 History tamsulosin [Flomax] 0.4 mg PO BID 08/26/19 08/26/19 History Allergies Allergy/AdvReac Type Severity Reaction Status Date / Time No Known Drug Allergies Allergy Unknown Verified 08/26/19 10:34 Current Medications Current Medications Generic Name Dose Route Start Last Admin Trade Name Freq PRN Reason Stop Dose Admin Albuterol/Ipratropium 3 ml 08/26/19 19:00 08/27/19 15:18 Duoneb INHALATION 3 ml Q4H.RESPIRATORY CHLOE Administration Amiodarone HCl 200 mg 08/27/19 09:00 08/27/19 08:53 Cordarone PO 200 mg DAILY CHLOE Administration Apixaban 5 mg 08/26/19 18:00 08/27/19 17:06 Eliquis PO 5 mg BID CHLOE Administration Aspirin 81 mg 08/27/19 09:00 08/27/19 08:53 Aspirin Ec PO 81 mg DAILY CHLOE Administration Atorvastatin Calcium 40 mg 08/27/19 09:00 08/27/19 08:53 Lipitor PO 40 mg DAILY CHLOE Administration Colchicine 0.6 mg 08/27/19 09:00 08/27/19 12:21 Colcrys PO 0.6 mg DAILY CHLOE Administration Diltiazem HCl 30 mg 08/26/19 16:59 08/27/19 17:06 Cardizem PO 30 mg Q6H CHLOE Administration Finasteride 5 mg 08/27/19 09:00 08/27/19 08:53 Proscar PO 5 mg DAILY CHLOE Administration Furosemide 40 mg 08/26/19 18:00 08/27/19 17:05 Lasix IVP 40 mg BID CHLOE Administration Guaifenesin 600 mg 08/26/19 18:00 08/27/19 17:06 Mucinex PO 600 mg BID CHLOE Administration Hydroxyzine HCl 10 mg 08/26/19 20:34 08/26/19 21:16 Vistaril PO 10 mg QID PRN Administration ANXIETY Azithromycin 500 mg/ Sodium 250 mls @ 250 mls/hr 08/27/19 14:00 08/27/19 15:50 Chloride IV 250 mls/hr Q24H CHLOE Administration Protocol Ceftriaxone Sodium 1,000 mg/ 50 mls @ 100 mls/hr 08/27/19 09:00 08/27/19 08:58 Sodium Chloride IV 100 mls/hr DAILY CHLOE Administration Protocol Lanolin 1 applic 08/26/19 19:29 08/26/19 19:52 Lanolin Oint TOPICAL 1 applic PRN PRN Administration DRYNESS Potassium Chloride 20 meq 08/26/19 18:00 08/27/19 17:06 Klor-Con 10 PO 20 meq BID CHLOE Administration Prednisone 40 mg 08/27/19 09:00 08/27/19 12:20 Prednisone PO 40 mg DAILY CHLOE Administration Tamsulosin HCl 0.4 mg 08/26/19 18:00 08/27/19 17:06 Flomax PO 0.4 mg BID CHLOE Administration PFSH Acute PFSH: Statuses (acute, chronic, etc) shown below reflect problem list status as previously entered and may not be historically accurate Surgical History History of aortic valve replacement (Acute) History of coronary artery bypass graft x 3 (Acute) Family History Other Diabetes Social History Smoking and tobacco status: former smoker Alcohol intake: never Substance/Drug Use: never Vitals/I&O/Wt Last Vital Signs Temp 97.7 F 08/27/19 19:00 Pulse 63 08/27/19 19:00 Resp 20 H 08/27/19 19:00 BP 134/68 08/27/19 19:00 Pulse Ox 94 08/27/19 19:00 08/27/19 08/27/19 08/27/19 06:59 14:59 22:59 Intake Total 960 / 1010 820 / 820 940 / 1760 Output Total 500 / 2300 1050 / 1050 380 / 1430 Balance 460 / -1290 -230 / -230 560 / 330 Weight last 48 hrs Weight 223 lb Weight 223 lb Weight 221 lb Physical Exam Narrative: EXAM NARRATIVE: GENERAL: Patient is alert, awake and oriented x3. Patient is not able to catch breath while talking of sitting NECK: No jugular vein distension. HEENT: No cyanosis. No icterus. No pallor. HEART: Regular S1 and S2. No murmur, rub or gallop. LUNGS: Decreased breath sound bilaterally. ABDOMEN: Soft, nontender and nondistended. Positive bowel sounds. No guarding, rebound or tenderness. CENTRAL NERVOUS SYSTEM: Grossly nonfocal. EXTREMITIES: Lower extremities with 1+ edema bilaterally. Data Micro: Micro: Microbiology 08/26/19 15:05 Blood Culture - Pr eliminary Blood NEGATIVE TO MICA E 08/26/19 15:14 Blood Culture - Pr eliminary Blood NEGATIVE TO MICA E 08/27/19 04:10 Bacterial Antigens - Final Urine,Voided A&P Assessment and plan (1) CAD (coronary artery disease): Currently he is stable from a coronary artery disease perspective. Continue current regimen Status: Acute Code(s): I25.10 - Atherosclerotic heart disease of [place] coronary artery without angina pectoris (2) Sinus bradycardia: Status: Acute Code(s): R00.1 - Bradycardia, unspecified (3) History of aortic valve replacement: Patient is status post aortic valve replacement for atrial fibrillation he is on amiodarone and Cardizem. I will stop calcium channel taj. I will monitor him. Continue anticoagulation. Continue amiodarone Status: Acute Code(s): Z95.2 - Presence of prosthetic heart valve (4) Diastolic CHF: Patientis in decompensated Diastolic heart failure. I will switch him from oral to IV Lasix. Goal is 1.5 liters negative electrolyte will be balance. Further plan will be advised as per progress of the patient Status: Acute Code(s): I50.30 - Unspecified diastolic (congestive) heart failure (5) Atrial fibrillation: Currently in sinus rhythm with episodes of bradycardia. I will discontinue Cardizem. He is on anticoagulationWhich will be continued. Status: Acute Code(s): I48.91 - Unspecified atrial fibrillation Consult Attestations Medical Necessity Statement: Patient requires continuation hospitalization for above defined care IV diuresis and adjustment of antiarrhythmics for bradycardia Coding Level of Care Code Acute [employer] [facility] for [facility] Fwd History Detailed Exam Detailed Medical Decision Making Moderate Complexity Diagnoses CAD (coronary artery disease) I25.10 Sinus bradycardia R00.1 History of aortic valve replacement Z95.2 Diastolic CHF I50.30 Atrial fibrillation I48.91
[2019-08-28] VITALS (15 sets, daily range): BP systolic 154–166; BP diastolic 71–88; PULSE 58–90; RESP 17–22; TEMP 36.2–36.6; O2SAT 93–97
[2019-08-28] MEDS: ipratropium-albuterol 3 mL Neb INHALATION ×4 (03:05→23:33)
[2019-08-28 06:06] LABS: Alanine Aminotransferase 59 U/L (0-41); Albumin Level 3.5 g/dL (3.5-5.2); Alkaline Phosphatase 88 IU/L (40-130); Anion Gap 14.1 (5-19); Aspartate Amino Transferase 36 U/L (0-40); Blood Urea Nitrogen 18 mg/dL (8-23); Calcium 9.8 mg/Dl (8.8-10.2); Carbon Dioxide 31 mmol/L (22-29); Chloride 93 mmol/L (98-107); Globulin 2.5 g/dL (1.3-4.6); Glucose 140 mg/dL (74-106); Magnesium 2.1 mg/dL (1.7-2.3); Phosphorus 3.5 mg/dL (2.5-4.5); Potassium 4.1 mmol/L (3.5-5.1); Sodium 134 mmol/L (136-145); Total Bilirubin 0.5 mg/dL (0.15-1.2)
[2019-08-28 06:16] LABS: Basophils % 0.1 %; Hematocrit 40.9 % (42.0-52.0); Hemoglobin 13.3 g/dL (11.7-16.6); Lymphocytes # 1.1 10^3/uL (0.8-4.8); Lymphocytes % 7.9 %; Mean Corpuscular HGB Conc 32.5 g/dL (30.0-36.0); Mean Corpuscular Hemoglobin 29.4 pg (28.0-34.0); Mean Corpuscular Volume 90.3 fL (80-94); Mean Platelet Volume 11.9 fL (7.4-10.4); Monocytes # 1.2 10^3/uL (0.2-0.9); Monocytes % 8.8 %; Neutrophils # 11.3 10^3/uL (1.8-7.7); Neutrophils % 80.6 %; Nucleated Red Blood Cells % 0 %; Platelet Count 64 10^3/cmm (130-400); Red Blood Count 4.53 10^6/uL (4.1-5.3); Red Cell Distribution Width 13.1 % (12.1-15.1)
[2019-08-28] MEDS: finasteride 5 mg Tablet PO (08:33)
[2019-08-28] MEDS: guaiFENesin 600 mg Tablet PO ×2 (08:33→18:13)
[2019-08-28] MEDS: aspirin 81 mg EC Tablet PO (08:33)
[2019-08-28] MEDS: amiodarone 200 mg Tablet PO (08:34)
[2019-08-28] MEDS: predniSONE 20 mg Tablet 40 MG PO (08:34)
[2019-08-28] MEDS: atorvastatin 40 mg Tablet PO (08:34)
[2019-08-28] MEDS: FUROsemide 10 mg/mL SDV 10mL 60 MG IVP ×2 (08:34→18:13)
[2019-08-28] MEDS: apixaban 5 mg Tablet PO ×2 (08:35→18:12)
[2019-08-28] MEDS: cefTRIAXone 1,000 MG in sodium chloride 0.9% (plus) 50 ML 100 MG IV (08:35)
[2019-08-28] MEDS: tamsulosin 0.4 mg Capsule PO ×2 (08:35→18:12)
[2019-08-28 11:50] LABS: LAB Peripheral Smear Sent for Review
[2019-08-28 12:32] LABS: Carboxyhemoglobin 1.9 %THgb (0.4-20.1); Methemoglobin 0.5 % (0.4-1.5); Total Hemoglobin 14.1 g/dL (14-18)
--- NOTE | 2019-08-28 12:54 | PM.PN ---
Subjective Subjective: Interval history: No significant bradycardia overnight. He is breathing better after giving extra Lasix short to 40 mg last night. Creatinine remained stable. He is sitting and eating. He can talk to me in sentences. Vitals/I&O/Wt Last Vital Signs Temp 97.9 F 08/28/19 10:49 Pulse 58 L 08/28/19 10:49 Resp 18 08/28/19 10:49 BP 160/71 08/28/19 10:49 Pulse Ox 93 08/28/19 10:49 08/27/19 08/28/19 08/28/19 22:59 06:59 14:59 Intake Total 940 / 1810 840 / 840 Output Total 780 / 1830 1640 / 3470 550 / 550 Balance 160 / -20 -1640 / -1660 290 / 290 Weight last 48 hrs Weight 224 lb 4 oz Weight 223 lb Weight 223 lb Physical Exam Narrative: EXAM NARRATIVE: GENERAL: Patient is alert, awake and oriented x3. NECK: No jugular vein distension. HEENT: No cyanosis. No icterus. No pallor. HEART: Regular S1 and S2. No murmur, rub or gallop. LUNGS: Clear to auscultate bilaterally. ABDOMEN: Soft, nontender and nondistended. Positive bowel sounds. No guarding, rebound or tenderness. CENTRAL NERVOUS SYSTEM: Grossly nonfocal. EXTREMITIES: Lower extremities with trace edema bilaterally. Data Micro: Micro: Microbiology 08/26/19 15:05 Blood Culture - Pr eliminary Blood NEGATIVE TO MICA E 08/26/19 15:14 Blood Culture - Pr eliminary Blood NEGATIVE TO MICA E 08/27/19 04:10 Bacterial Antigens - Final Urine,Voided A&P Assessment and plan (1) Sinus bradycardia: Cardizem was discontinued overnight no significant bradycardia on telemetry. Continue amiodarone for A. fib. Continue anticoagulation Status: Acute Code(s): R00.1 - Bradycardia, unspecified (2) History of aortic valve replacement: Aortic valve sitting in normal position working fine. No significant valvular or paravalvular leak. He is status post aortic valve replacement 3 weeks ago Status: Acute Code(s): Z95.2 - Presence of prosthetic heart valve (3) CAD (coronary artery disease): Stable. Continue current regimen Status: Acute Code(s): I25.10 - Atherosclerotic heart disease of [place] coronary artery without angina pectoris (4) Hypertension: Blood pressure is slightly creeping up we will optimize medicine. Status: Acute Code(s): I10 - Essential (primary) hypertension (5) Diastolic CHF: Patient has Responded well to IV Lasix he is less short of breath this morning, I will increase Lasix to 60 mg twice a day Status: Acute Code(s): I50.30 - Unspecified diastolic (congestive) heart failure (6) Atrial fibrillation: Patient is in sinus rhythm. Due to bradycardia Cardizem was stopped. Continue amiodarone and anticoagulation Status: Acute Code(s): I48.91 - Unspecified atrial fibrillation Attestations Medical Necessity Statement*: Patient regarding continuation hospitalization for optimization of medicine and IV Lasix for CHF exacerbation Coding Level of Care Code Acute Emergency Management Program Specialist for [facility] Fwd Diagnoses Sinus bradycardia R00.1 History of aortic valve replacement Z95.2 CAD (coronary artery disease) I25.10 Hypertension I10 Diastolic CHF I50.30 Atrial fibrillation I48.91
[2019-08-28 13:09] LABS: Anti-HIV 1 and 2 AB & P24 AG Non-Reactive (Nonreactive)
[2019-08-28] MEDS: azithromycin 500 MG in sodium chloride 0.9% 250 ML 250 MG IV (14:30)
--- NOTE | 2019-08-28 15:14 | PM.PN ---
Subjective Subjective: Interval history: This morning patient's family is at bedside, patient sitting up into a chair, states that he is doing better, breathing has improved, still having anterior chest wall pain related to his sternotomy, Patient family would like him to have home health care, with home oxygen. I advised patient that home health care would be a good idea, he can only get home oxygen if he qualifies. Patient is clinically doing better, breathing has improved, is on 2 L oxygen, I would be surprised if he qualifies for home oxygen given his smoking history since he was 14 years old. Vitals/I&O/Wt Last Vital Signs Temp 97.5 F L 08/28/19 15:08 Pulse 72 08/28/19 15:08 Resp 20 H 08/28/19 15:08 BP 163/88 08/28/19 15:08 Pulse Ox 96 08/28/19 15:08 08/28/19 08/28/19 08/28/19 06:59 14:59 22:59 Intake Total 840 / 840 Output Total 1640 / 3470 1000 / 1000 Balance -1640 / -1410 -160 / -160 Weight last 48 hrs Weight 101.718 kg Weight 101.151 kg Weight 101.151 kg Physical Exam Const: COMMON NORMALS: no apparent distress and oriented x3 EXAM LIMITATIONS: no altered mental status GENERAL APPEARANCE: cooperative and comfortable NUTRITIONAL APPEARANCE: obese Neck/C-Spine: COMMON NORMALS: no JVD Chest: COMMONS NORMALS: inspection of chest normal (Has a sternotomy scar) Resp: COMMON NORMALS: normal respiratory effort, no retractions and no use of accessory muscles AUSCULTATION: wheezes throughout Cardio: COMMON NORMALS: no JVD, regular rate, S1 normal heart sound and S2 normal heart sound RATE: regular rate HEART SOUNDS: S1 normal, S2 normal and no murmurs GI: COMMON NORMALS: normal to inspection, nondistended, normoactive bowel sounds, soft to palpation, non-tender and no hepatosplenomegaly PALPATION: Yes soft and Yes no hepatosplenomegaly Neuro: COMMON NORMALS: oriented x3 Data Micro: Micro: Microbiology 08/26/19 15:05 Blood Culture - Pr eliminary Blood NEGATIVE TO MICA E 08/26/19 15:14 Blood Culture - Pr eliminary Blood NEGATIVE TO MICA E 08/27/19 04:10 Bacterial Antigens - Final Urine,Voided A&P Assessment and plan (1) Acute respiratory failure with hypoxia: Likely secondary to atypical pneumonia, COPD exacerbation, diastolic CHF Plan: -Telemetry monitoring -Lasix 40 mg IV twice daily -Rocephin and azithromycin -Prednisone -Oxygen therapy Status: Acute Code(s): J96.01 - Acute respiratory failure with hypoxia (2) CAD (coronary artery disease): -Status post triple vessel bypass graft August 10 2018 Status: Acute Code(s): I25.10 - Atherosclerotic heart disease of [place] coronary artery without angina pectoris (3) COPD (chronic obstructive pulmonary disease): Status: Acute Code(s): J44.9 - Chronic obstructive pulmonary disease, unspecified (4) Diastolic CHF: Status: Acute Code(s): I50.30 - Unspecified diastolic (congestive) heart failure (5) Atrial fibrillation: Continue Cardizem, amiodarone, Eliquis Status: Acute Code(s): I48.91 - Unspecified atrial fibrillation (6) Hyperlipidemia: Status: Acute Code(s): E78.5 - Hyperlipidemia, unspecified (7) Hypertension: Status: Acute Code(s): I10 - Essential (primary) hypertension (8) Carotid artery stenosis: Status: Acute Code(s): I65.29 - Occlusion and stenosis of unspecified carotid artery (9) History of aortic valve replacement: Status: Acute Code(s): Z95.2 - Presence of prosthetic heart valve (10) Sinus bradycardia: Status: Acute Code(s): R00.1 - Bradycardia, unspecified (11) Sinus pause: -Patient's telemetry monitoring clinic showing frequent sinus pauses, sinus bradycardia, patient asymptomatic Plan: -We will get a cardiac echocardiogram -Cardiology has been consulted Status: Acute Code(s): I45.5 - Other specified heart block Attestations Medical Necessity Statement*: Requires continued hospitalization, for acute respiratory failure Coding Level of Care Code Acute Manager Emergency Department for Karen Garcia Diagnoses Acute respiratory failure with hypoxia J96.01 CAD (coronary artery disease) I25.10 COPD (chronic obstructive pulmonary disease) J44.9 Diastolic CHF I50.30 Atrial fibrillation I48.91 Hyperlipidemia E78.5 Hypertension I10 Carotid artery stenosis I65.29 History of aortic valve replacement Z95.2 Sinus bradycardia R00.1 Sinus pause I45.5
[2019-08-29] VITALS (10 sets, daily range): BP systolic 96–171; BP diastolic 66–86; PULSE 68–92; RESP 17–20; TEMP 36.4–36.6; O2SAT 86–98
[2019-08-29] MEDS: ipratropium-albuterol 3 mL Neb INHALATION ×2 (03:05→08:07)
[2019-08-29 06:00] LABS: Basophils % 0.1 %; Eosinophils % 0.3 %; Hematocrit 41.4 % (42.0-52.0); Hemoglobin 13.3 g/dL (11.7-16.6); Lymphocytes # 1.8 10^3/uL (0.8-4.8); Lymphocytes % 16.3 %; Mean Corpuscular HGB Conc 32.1 g/dL (30.0-36.0); Mean Corpuscular Hemoglobin 28.9 pg (28.0-34.0); Mean Platelet Volume 12.9 fL (7.4-10.4); Monocytes # 0.9 10^3/uL (0.2-0.9); Monocytes % 8.5 %; Neutrophils # 8.1 10^3/uL (1.8-7.7); Neutrophils % 73.9 %; Nucleated Red Blood Cells % 0 %; Platelet Count 57 10^3/cmm (130-400); Red Cell Distribution Width 13.2 % (12.1-15.1)
[2019-08-29 06:19] LABS: Alanine Aminotransferase 81 U/L (0-41); Albumin Level 3.8 g/dL (3.5-5.2); Alkaline Phosphatase 93 IU/L (40-130); Anion Gap 14.5 (5-19); Blood Urea Nitrogen 19 mg/dL (8-23); Calcium 10.1 mg/Dl (8.8-10.2); Carbon Dioxide 34 mmol/L (22-29); Chloride 94 mmol/L (98-107); Globulin 2.4 g/dL (1.3-4.6); Glucose 110 mg/dL (74-106); Magnesium 2.2 mg/dL (1.7-2.3); Potassium 4.5 mmol/L (3.5-5.1); Sodium 138 mmol/L (136-145); Total Bilirubin 0.6 mg/dL (0.15-1.2); Total Protein 6.2 g/dL (6.6-8.7)
[2019-08-29 06:39] LABS: Aspartate Amino Transferase 53 U/L (0-40)
--- NOTE | 2019-08-29 07:21 | PM.PN ---
Subjective Subjective: Interval history: Dakota was admitted 3 days ago with cough, shortness of breath, orthopnea and paroxysmal nocturnal dyspnea. He had three-vessel coronary bypass surgery and an aortic valve replacement on August 10. He went home from the hospital on the of last month. Very shortly thereafter he was readmitted to the hospital with pneumonia. He then went home on the or . All of this occurred in [place]. He stated that he has not felt well since going home the second time and 3 days ago came back to the hospital with the above-mentioned complaints. He was thought to have some residual pneumonia, exacerbation of his COPD and congestive heart failure diastolic in nature. His heart rate was low in the 40s. He was taken off the Cardizem that had been prescribed upon discharge from the hospital in [place]. He is also on amiodarone. I presume this was because of the development of atrial fibrillation after open heart surgery. He is on an anticoagulant. Upon his admission he was hypoxic with a mild metabolic alkalosis. He was placed on Lasix 40 mg IV twice daily, antibiotics, steroids. Over the time he has been in the hospital he has felt better. Today tells me that he feels better than he has since he went home on . He thinks he needs oxygen at home. He has had a multitude of tests since he has been here. An ultrasound of his gallbladder was negative. An echo revealed an ejection fraction of 58% with grade 2 diastolic dysfunction and normally positioned and functioning prosthetic aortic valve. Chest x-ray shows small pleural effusion and the EKG revealed atrial fibrillation. A CTA of the chest was also done and unremarkable. Medications: Reviewed: Yes Vitals/I&O/Wt Last Vital Signs Temp 97.6 F 08/29/19 04:00 Pulse 84 08/29/19 04:00 Resp 20 H 08/29/19 04:00 BP 115/67 08/29/19 04:00 Pulse Ox 95 08/29/19 04:00 08/28/19 08/29/19 08/29/19 22:59 06:59 14:59 Intake Total 480 / 1320 Output Total 2100 / 3100 800 / 3900 Balance -1620 / -1780 -800 / -2580 Weight last 48 hrs Weight 216 lb 4.8 oz Weight 224 lb 4 oz Weight 223 lb Physical Exam Narrative: EXAM NARRATIVE: GENERAL: In general he is mildly short of breath at rest HEENT: Exam within normal limits. NECK: Supple without jugular vein distention. The carotid upstroke is normal without bruits. BACK: Exam normal. LUNGS: Decreased breath sounds bilaterally with occasional end expiratory wheezes HEART: Irregular rate and rhythm ABDOMEN: Benign without organomegaly or tenderness. EXTREMITIES: No edema. NEUROLOGIC: Exam normal. SKIN: Unremarkable. A&P Assessment and plan (1) Sinus pause: Status: Acute Code(s): I45.5 - Other specified heart block (2) Sinus bradycardia: Status: Acute Code(s): R00.1 - Bradycardia, unspecified (3) History of aortic valve replacement: Status: Acute Code(s): Z95.2 - Presence of prosthetic heart valve (4) Acute respiratory failure with hypoxia: Status: Acute Code(s): J96.01 - Acute respiratory failure with hypoxia (5) Carotid artery stenosis: Status: Acute Code(s): I65.29 - Occlusion and stenosis of unspecified carotid artery (6) CAD (coronary artery disease): Status: Acute Code(s): I25.10 - Atherosclerotic heart disease of [place] coronary artery without angina pectoris (7) Hypertension: Status: Acute Code(s): I10 - Essential (primary) hypertension (8) Hyperlipidemia: Status: Acute Code(s): E78.5 - Hyperlipidemia, unspecified (9) COPD (chronic obstructive pulmonary disease): Status: Acute Code(s): J44.9 - Chronic obstructive pulmonary disease, unspecified (10) Diastolic CHF: Status: Acute Code(s): I50.30 - Unspecified diastolic (congestive) heart failure (11) Atrial fibrillation: Status: Acute Code(s): I48.91 - Unspecified atrial fibrillation (12) Metabolic alkalosis: Status: Acute Code(s): E87.3 - Alkalosis (13) Anticoagulation adequate: Status: Acute 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 He will need to go home on Eliquis and amiodarone. We will need to consider cardioversion as an outpatient if he request to attempt to restore sinus rhythm. We need to take him off oxygen and see whether or not he needs home oxygen. He is insistent upon going home with oxygen. For now I would leave him off the calcium channel taj but would consider starting him on low-dose beta-taj. I suspect the reason he went home on diltiazem instead of a beta-taj was because of his underlying COPD. 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
[2019-08-29] MEDS: colchicine 0.6 mg Tablet PO (09:02)
[2019-08-29] MEDS: finasteride 5 mg Tablet PO (09:02)
[2019-08-29] MEDS: tamsulosin 0.4 mg Capsule PO (09:03)
[2019-08-29] MEDS: metoprolol tartrate 25 mg Tablet PO (09:03)
[2019-08-29] MEDS: amiodarone 200 mg Tablet PO (09:03)
[2019-08-29] MEDS: fluoxetine 20 mg Capsule PO (09:03)
[2019-08-29] MEDS: predniSONE 20 mg Tablet 40 MG PO (09:03)
[2019-08-29] MEDS: atorvastatin 40 mg Tablet PO (09:03)
[2019-08-29] MEDS: apixaban 5 mg Tablet PO (09:03)
[2019-08-29] MEDS: guaiFENesin 600 mg Tablet PO (09:03)
[2019-08-29] MEDS: aspirin 81 mg EC Tablet PO (09:03)
[2019-08-29] MEDS: cefTRIAXone 1,000 MG in sodium chloride 0.9% (plus) 50 ML 100 MG IV (09:06)
[2019-08-29 09:22] LABS: Oxygen Device ROOM AIR
--- NOTE | 2019-08-29 11:41 | P.DS_ITS ---
Discharge Providers Date of Admission: 08/26/19 15:28 Date of Discharge: 08/29/19 Attending Provider at Admission: Jaron Alvarado MD Attending Provider at Discharge: Jaron Alvarado MD Primary Care Provider: Дмитрий Santiago DO Diagnoses at Discharge Discharge Diagnosis (1) Sinus pause: Status: Acute (2) Sinus bradycardia: Status: Acute (3) History of aortic valve replacement: Status: Acute (4) Acute respiratory failure with hypoxia: Status: Acute (5) Carotid artery stenosis: Status: Acute (6) CAD (coronary artery disease): Status: Acute (7) Hypertension: Status: Acute (8) Hyperlipidemia: Status: Acute (9) COPD (chronic obstructive pulmonary disease): Status: Acute (10) Diastolic CHF: Status: Acute (11) Atrial fibrillation: Status: Acute (12) Metabolic alkalosis: Status: Acute (13) Anticoagulation adequate: Status: Acute (14) Transaminitis: Status: Acute (15) Dyslipidemia: Status: Acute (16) Respiratory failure with hypoxia: Status: Acute Reason for Visit Reason for Visit: Reason For Visit: Breathing issues Hospital Course Hospital Course: Dakota Mercado is a 73 year old male with a past medical history of COPD, atrial fibrillation on Eliquis, CAD status post triple vessel CABG, aortic stenosis status post aortic valve replacement, hyperlipidemia, hypertension, diastolic CHF, abdominal aortic aneurysm, carotid artery stenosis, who presents to the emergency room due to complaints of cough, shortness of dexter th, orthopnea, paroxysmal nocturnal dyspnea. Patient states that on August 10, 2019 he had a triple-vessel coronary artery bypass graft with aortic valve replacement at [facility] in [place], he was discharged on August 15. But when he got home, he lives in [facility], with 2 sons, he complained of difficulty catching his breath, productive cough, shortness of breath, shortness of breath at rest, paroxysmal nocturnal dyspnea, orthopnea. He was transferred back to [facility], was treated for pneumonia, he is not sure what else happened during that hospitalization. But states that he got back, August 17, states that since then he has not gotten any better, still quite short of breath, short of breath at rest, has significant orthopnea, paroxysmal nocturnal dyspnea, difficulty sleeping, has chest wall pain Discharge Summary: Patient was admitted for acute respiratory failure with hypoxia secondary to atypical pneumonia, COPD, diastolic CHF exacerbation. Patient received antibiotics, steroid therapy, Lasix, clinically improved, ambulating without significant symptomatology, on 2 L nasal cannula during rest, will need an oxygen evaluation before discharge. Will be discharged on steroid taper, oral antibiotics, Lasix 40 mg p.o. twice daily. For his atrial fibrillation and sinus bradycardia, cardiology was consulted, recommended continue Eliquis, stop Cardizem, continue amiodarone, follow-up as outpatient for consideration of cardioversion. Patient clinically did well during his hospitalization, was discharged on Eliquis and amiodarone with a close follow-up with cardiology as outpatient. In addition patient was found to have asymptomatic thrombocytopenia during admission, his work-up including ultrasound, hepatitis panel, HIV panel which are unremarkable. 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 We will stop colchicine, recheck blood work in 1 week with a close follow-up with his physician in 1 week. Patient was advised to monitor for signs of bleeding, as he is on Eliquis, and if so come back to the emergency room. For his anxiety and depression, patient was discharged on Prozac and hydroxyzine with a close follow-up with his physician in 1 week. Physical Exam Const: COMMON NORMALS: no apparent distress and oriented x3 EXAM LIMITATIONS: no altered mental status GENERAL APPEARANCE: cooperative and comfortable NUTRITIONAL APPEARANCE: obese Neck/C-Spine: COMMON NORMALS: no JVD Lymph: LYMPHATIC: no lymphadenopathy noted Chest: COMMONS NORMALS: inspection of chest normal (Has a sternotomy scar) Resp: COMMON NORMALS: normal respiratory effort, no retractions and no use of accessory muscles AUSCULTATION: wheezes throughout Cardio: COMMON NORMALS: no JVD, regular rate, S1 normal heart sound and S2 normal heart sound RATE: regular rate HEART SOUNDS: S1 normal, S2 normal and no murmurs GI: COMMON NORMALS: normal to inspection, nondistended, normoactive bowel sounds, soft to palpation, non-tender and no hepatosplenomegaly PALPATION: Yes soft and Yes no hepatosplenomegaly Neuro: COMMON NORMALS: oriented x3 Discharge Data Data Completed and Pending: Completed Studies During Hospitalization Category Date Time Status CT angio chest PE protcl [id number] Urge nt Cat Scan 08/26/19 12:36 Completed XR chest 1V ping ble [id number] Urgent Exams 08/26/19 10:42 Completed CV echo complete* [id number] Routine Ultrasound 08/27/19 11:08 Completed US abdomen limite d [id number] Routine Ultrasound 08/27/19 15:31 Completed Pending at discharge Category Date Time Status Blood Culture Sta t Lab 08/26/19 15:14 Results Sputum Culture an d Gram Stain Stat Lab 08/26/19 16:59 Uncollected Labs from last 24 hours 08/29/19 08/29/19 08/28/19 05:50 05:50 05:10 WBC 11.0 H RBC 4.60 Hgb 13.3 Hct 41.4 L MCV 90.0 MCH 28.9 MCHC 32.1 RDW 13.2 Plt Count 57 L MPV 12.9 H Neut % (Auto) 73.9 Lymph % (Auto) 16.3 [place] % (Auto) 8.5 Eos % (Auto) 0.3 Baso % (Auto) 0.1 Neut # (Auto) 8.1 H Lymph # (Auto) 1.8 [place] # (Auto) 0.9 Eos # (Auto) 0.0 Baso # (Auto) 0.0 Nucleated RBC % (a uto) 0 Nucleated RBCs # 0.0 Carboxyhemoglobin Methemoglobin Total Hemoglobin O2 Delivery Device Sodium 138 Potassium 4.5 Chloride 94 L Carbon Dioxide 34 H Anion Gap 14.5 BUN 19 Creatinine 0.9 Glucose 110 H Calcium 10.1 Phosphorus 3.0 Magnesium 2.2 Total Bilirubin 0.6 AST 53 H ALT 81 H Alkaline Phosphata se 93 Total Protein 6.2 L Albumin 3.8 Globulin 2.4 HIV 1&2 Antibody Non-reactive 08/26/19 11:10 WBC RBC Hgb Hct MCV MCH MCHC RDW Plt Count MPV Neut % (Auto) Lymph % (Auto) [place] % (Auto) Eos % (Auto) Baso % (Auto) Neut # (Auto) Lymph # (Auto) [place] # (Auto) Eos # (Auto) Baso # (Auto) Nucleated RBC % (a uto) Nucleated RBCs # Carboxyhemoglobin 1.9 Methemoglobin 0.5 Total Hemoglobin 14.1 O2 Delivery Device Room air Sodium Potassium Chloride Carbon Dioxide Anion Gap BUN Creatinine Glucose Calcium Phosphorus Magnesium Total Bilirubin AST ALT Alkaline Phosphata se Total Protein Albumin Globulin HIV 1&2 Antibody Vitals: Last Vital Signs Temp 97.9 F 08/29/19 07:24 Pulse 69 08/29/19 08:11 Resp 18 08/29/19 08:11 BP 96/66 08/29/19 07:24 Pulse Ox 92 08/29/19 08:11 Discharge Plan Discharge Patient Disposition: Home Health Service Condition: Stable Prescriptions: New hydroxyzine HCl 10 mg Tablet 10 mg PO QPM PRN (Reason: Anxiety) 30 Days Qty: 30 RF: 0 fluoxetine 20 mg Capsule 20 mg PO DAILY 30 Days Qty: 30 RF: 0 metoprolol tartrate 25 mg Tablet 25 mg PO BID 30 Days Qty: 60 RF: 0 prednisone 10 mg tablets,dose pack 10 mg PO DIRECTED 25 Days Qty: 53 RF: 0 Advair Diskus 100-50 mcg/dose blister with device 1 inh INHALATION BID Qty: 14 RF: 0 Continued albuterol sulfate 90 mcg/actuation HFA aerosol inhaler 1 puff INHALATION Q4H PRN (Reason: Shortness Of Breath) RF: 0 doxycycline hyclate 100 mg capsule 100 mg PO BID 7 Days Qty: 14 RF: 0 Flomax 0.4 mg capsule 0.4 mg PO BID 30 Days Qty: 180 RF: 3 Eliquis 5 mg Tablet 5 mg PO DAILY 30 Days Qty: 0 RF: 0 finasteride 5 mg tablet 5 mg PO DAILY 30 Days Qty: 0 RF: 0 Mucinex 600 mg Tablet Extended Release 12hr 600 mg PO BID 30 Days Qty: 0 RF: 0 potassium chloride 20 mEq Tablet Extended Release 20 meq PO BID 30 Days Qty: 0 RF: 0 amiodarone 200 mg Tablet 200 mg PO DAILY 30 Days Qty: 0 RF: 0 aspirin 81 mg Tablet,Chewable 1 tab PO DAILY 30 Days Qty: 0 RF: 0 Lipitor 40 mg Tablet 40 mg PO DAILY 30 Days Qty: 0 RF: 0 Lasix 40 mg Tablet 40 mg PO BID 30 Days Qty: 60 RF: 0 Discontinued ibuprofen 400 mg tablet 400 mg PO Q4H PRN (Reason: Pain) RF: 0 diltiazem HCl 30 mg tablet 30 mg PO Q6H RF: 0 Colcrys 0.6 mg tablet 0.6 mg PO DAILY RF: 0 Discharge Orders: Discharge Order (Routine); Ordered 08/29/19 Ordered By: Jaron Alvarado Other Ambulatory Orders: Complete Blood Count w/Auto (Routine) Timeframe: 1 Week Location: Determined by Patient Ordered By: Jaron Alvarado Comprehensive Metabolic Panel (Routine) Timeframe: 1 Week Facility: [facility] - Location: Lab - Main Lab Ordered By: Jaron Alvarado Referrals: Jaron Alvarado MD [Hospitalist] - Wes Cruz MD [Physician] - (follow up 1-2 weeks) Discharge Diet: Cardiac Discharge Activity: Resume usual activity Activity Restrictions/Additional Instructions: -For your COPD, use steroids as prescribed antibiotics as prescribed, Advair as prescribed, follow-up with primary care in 1 week -For your diastolic CHF, use Lasix 40 mg twice daily as prescribed -For your atrial fibrillation use amiodarone and metoprolol as prescribed, if yo u lightheaded or dizzy please come back to the emergency room -Continue Eliquis as prescribed, if you have bloody, black stools, nosebleed, significant bleeding come back to emergency room -Please follow-up with cardiology in 1 to 2 weeks -For your thrombocytopenia, low platelet count, monitor for signs of bleeding, recheck blood work in 1 week, if you have signs of bleeding come back to the emergency room Discharge Attestations Time Spent in Discharge Care*: greater than 30 min Quality Metrics Clinical Quality Measures During this hospital stay, did patient experience: None Coding Level of Care Code 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
--- NOTE | 2019-08-29 13:30 | PC.SOCIAL ---
IMM Page 2 of IMM explained to and signed by patient. Initialed, dated, and timed and placed in chart. Copy provided to patient.
[2019-08-29] MEDS: azithromycin 500 MG in sodium chloride 0.9% 250 ML 250 MG IV (13:59)
== END 2019-08-29 19:20 | disposition home health service (06) | DRG 291 ==
LOC: ER 10:37 → MEDSURG 15:48
PROVIDERS: Admitting Provider Family Medicine; Emergency Provider Emergency Medicine; Family Provider Family Medicine; PCP Family Medicine; Visit Provider Family Medicine
DX: I11.0 Hypertensive heart disease with heart failure (principal); I50.31 Acute diastolic (congestive) heart failure; J18.9 Pneumonia, unspecified organism; J96.01 Acute respiratory failure with hypoxia; J44.0 Chronic obstructive pulmonary disease with (acute) lower respiratory infection; J44.1 Chronic obstructive pulmonary disease with (acute) exacerbation; E87.3 Alkalosis; I48.91 Unspecified atrial fibrillation; F17.210 Nicotine dependence, cigarettes, uncomplicated; Z79.82 Long term (current) use of aspirin; Z79.01 Long term (current) use of anticoagulants; I25.10 Atherosclerotic heart disease of native coronary artery without angina pectoris; Z95.1 Presence of aortocoronary bypass graft; E78.5 Hyperlipidemia, unspecified; I71.4 Abdominal aortic aneurysm, without rupture; Z95.2 Presence of prosthetic heart valve
CPT/HCPCS: 36415; 36600; 71045; 71275; 76705; 80053; 80074; 82805; 83735; 83880; 84100; 84484; 85025; 86403; 87040; 93005; 93306; 94640; 94664; 96365; 96374; 96375; 99283; J0456; J0696; J1940; J2270; J2930; J3490; J7050; J7512; Q9967

== ENCOUNTER 2019-09-05 11:59 | Outpatient (CLI) | payer MEDICARE, OTHER, SELFPAY ==
[2019-09-05 12:49] LABS: Hemoglobin 12.8 g/dL (11.7-16.6); Lymphocytes # 0.7 10^3/uL (0.8-4.8); Lymphocytes % 5.7 %; Mean Corpuscular Hemoglobin 28.7 pg (28.0-34.0); Mean Corpuscular Volume 89.7 fL (80-94); Mean Platelet Volume 13.6 fL (7.4-10.4); Monocytes # 0.8 10^3/uL (0.2-0.9); Monocytes % 7.1 %; Neutrophils # 9.8 10^3/uL (1.8-7.7); Neutrophils % 86.3 %; Nucleated Red Blood Cells % 0 %; Platelet Count 42 10^3/cmm (130-400); Red Blood Count 4.46 10^6/uL (4.1-5.3); Red Cell Distribution Width 13.8 % (12.1-15.1); White Blood Count 11.3 10^3/uL (4.0-10.0)
[2019-09-05 13:08] LABS: Alanine Aminotransferase 84 U/L (0-41); Albumin Level 3.7 g/dL (3.5-5.2); Alkaline Phosphatase 122 IU/L (40-130); Anion Gap 15.8 (5-19); Aspartate Amino Transferase 38 U/L (0-40); Blood Urea Nitrogen 24 mg/dL (8-23); Calcium 10.2 mg/Dl (8.8-10.2); Carbon Dioxide 30 mmol/L (22-29); Chloride 95 mmol/L (98-107); Globulin 2.7 g/dL (1.3-4.6); Glucose 119 mg/dL (74-106); Potassium 4.8 mmol/L (3.5-5.1); Sodium 136 mmol/L (136-145); Total Bilirubin 0.8 mg/dL (0.15-1.2); Total Protein 6.4 g/dL (6.6-8.7)
== END 2019-09-05 12:00 | disposition home or self-care (01) ==
LOC: LAB 12:06
PROVIDERS: Family Provider Family Medicine; PCP Family Medicine; Visit Provider Family Medicine
DX: Z01.89 Encounter for other specified special examinations (principal); Z79.899 Other long term (current) drug therapy
CPT/HCPCS: 80053; 85025

== ENCOUNTER 2019-10-31 10:57 | Emergency (ER) | payer MEDICARE, OTHER, SELFPAY ==
[2019-10-31 11:14] VITALS: BP 141/82; PULSE 50; RESP 16; TEMP 36.6; O2SAT 93; BMI 33.0
--- NOTE | 2019-10-31 11:18 | XRR_ITS ---
PROCEDURE INFORMATION: Exam: XR Chest, 1 View Exam date and time: 10/31/2019 12:02 PM Age: 73 years old Clinical indication: Chest pain; Type not specified; Prior surgery; Surgery type: Cabg; Additional info: Chest pain since 2 am today TECHNIQUE: Imaging protocol: XR of the chest Views: 1 view. COMPARISON: CR XR chest 1V portable [id number] 08/26/2019 10:44 AM FINDINGS: Lungs: Minimal interstitial thickening in the lung bases, stable small nodules consistent with granulomas. Pleural space: Left diaphragmatic pleural calcification. No pleural effusion. No pneumothorax. Heart/Mediastinum: No cardiomegaly. Bones/joints: No acute findings. Sternotomy. XR/XR chest 1V portable [id number] IMPRESSION: No interval change. Nonspecific interstitial thickening and nodularity.
--- NOTE | 2019-10-31 11:18 | ECG_ITS ---
Measurements Intervals [place] Rate: 48 P: 79 NC: 175 QRS: 62 QRSD: 111 T: 127 QT: 443 QTc: 396 SINUS BRADYCARDIA POSSIBLE LEFT ATRIAL ENLARGEMENT [-0.1mV P WAVE IN V1/V2] MODERATE INTRAVENTRICULAR CONDUCTION DELAY [105+ ms QRS DURATION, 80+ ms Q/S IN V1/V2, NO Q AND 60+ ms R IN I/aVL/V5/V6] ST DEVIATION AND MODERATE T-WAVE ABNORMALITY, CONSIDER LATERAL ISCHEMIA [-0.1+ mV T WAVE IN I/aVL/V5/V6] Compared to ECG 08/26/2019 13:02:37 Atrial fibrillation no longer present Ventricular premature complex(es) no longer present Aberrant conduction of supraventricular beat(s) no longer present T-wave abnormality still present Possible ischemia still present Electronically Signed On 10-31-2019 19:33:53 CDT by Wes Cruz M.D. [email or web address]
--- NOTE | 2019-10-31 11:24 | ED_ITS ---
Entered by Adamaris Landis, acting as scribe for Татьяна Strange MD Oct 31, 2019 10:57 HPI - Chest Pain General: Chief Complaint: Chest Pain Stated Complaint: BLOOD PRESSURE CHEST PAIN Time Seen by Provider: 10/31/19 11:24 Source: patient and RN notes reviewed Mode of arrival: ambulatory Limitations: no limitations History of Present Illness: HPI narrative: 73 yo male presents to ED with complaints of chest pain. The patient states he has centralized chest pain and HTN (at home 197/101, at triage 141/82). The pain began at 0200 this morning. He said Tylenol helped a little, which he took at 0900. He also took an aspirin and Nitro. He said the pain is sharp and cramping. He said deep breathing makes the pain worse. He is on 2L oxygen at home. He denies any other symptoms at this time. The spouse states the patient has been off of his Lasix for approximately a week (because it was drying him out ); he has continued his Eloquist. complaint: chest pain Pertinent past history: coronary artery disease, known aortic aneurysm and CABG Onset (ago): hour(s) (9.5 (0200)) Timing of current episode: constant Prior episodes: No Onset: during rest Pain location: substernal Pain radiation: none Severity: moderate Quality: sharp and other (crampy) Relieving factors: nitroglycerin and other (aspirin, Tylenol) Exacerbating factors: inspiration Context: recent surgery () and non compliance with medication (Lasix) Associated symptoms: Reports no associated symptoms; Deny abdominal pain, dyspnea, fever(s), nausea or vomiting Treatment prior to arrival: aspirin, nitroglycerin and other (Tylenol) Risk Factors: Coronary artery disease risk factors: smoking history, hyperlipidemia and hypertension Thoracic aortic dissection risk factors: none Review of Systems General: Reports: 10 or more systems reviewed and unremarkable except in HPI and below Const: Denies: fever or chills Eyes: Denies: change in vision ENMT: Denies: throat pain Resp: Denies: shortness of breath GI: Denies: abdominal pain, nausea, vomiting or change in bowel habits Musc: Denies: muscle weakness Skin/Breast: Denies: rash Neuro: Denies: headache Psych: Denies: hopelessness or suicidal ideation Endo: Denies: excessive urination Sonu/Lymph: Denies: easy bruising or easy bleeding All/Imm: Denies: hives PFSH ED PFSH: Medical History (Updated 10/31/19 @ 15:13 by Татьяна Strange MD) Abdominal aortic aneurysm (AAA) Anticoagulation adequate Metabolic alkalosis Respiratory failure with hypoxia Sinus pause Tobacco abuse Transaminitis Social History Smoking and tobacco status: current every day smoker Quit status (tobacco): considering quitting Second hand smoke exposure: Yes Smoking risk assessment/counseling performed?: Yes Alcohol intake: never Physical Exam Const: COMMON NORMALS: no apparent distress, oriented x3, alert and well nourished HENMT: COMMON NORMALS: normocephalic and external nose normal HEAD & SCALP: normocephalic NOSE: external nose normal MOUTH: no trismus Eye: COMMON NORMALS: EOMs intact bilaterally and conjunctivae normal CONJUNCTIVA: Yes conjunctivae normal Neck/C-Spine: COMMON NORMALS: full ROM, no lymphadenopathy and supple CERVICAL SPINE: Yes cervical ROM normal Resp: COMMON NORMALS: normal respiratory effort, no retractions, no use of accessory muscles and clear to auscultation bilaterally EFFORT & INSPECTION: Yes able to speak in complete sentences AUSCULTATION: clear to auscultation bilaterally and diminished lung sounds Cardio: COMMON NORMALS: regular rate and regular rhythm RATE: regular rate RHYTHM: regular rhythm GI: COMMON NORMALS: normal to inspection, nondistended, normoactive bowel sounds, soft to palpation, non-tender and no masses INSPECTION: Yes normal to inspection AUSCULTATION: Yes normoactive bowel sounds PALPATION: Yes soft, No guarding and No rigid Extremity: GENERAL: Yes normal exam except as noted Neuro: COMMON NORMALS: oriented x3 and CN's II-XII intact bilaterally SENSORIUM/ORIENTATION: Yes alert SPEECH: speech normal Course Vital Signs: Vital signs: Vital Signs Temperature 98 F 10/31/19 11:14 Pulse Rate 51 L 10/31/19 15:53 Respiratory Rate 18 10/31/19 15:53 Blood Pressure 198/91 10/31/19 15:53 Pulse Oximetry 96 10/31/19 15:53 MDM - Chest Pain Lab Data: Attestation: I reviewed the patient's lab results. Lab results narrative: Patient was pain-free after 3 nitroglycerin. Pain did return and nitro paste was ordered. Planning on admitting the patient for elevated troponin. States pain has been there since 2 AM, his d-dimer is also elevated so we will need to get a CTA first. [address] Cruz: Patient has suspicion for small PE in the right lower lobe per radiology. Second troponin came back and is slightly lower at 28. Dr. Cruz would have nothing to offer at this time if patient is hospitalized but he is happy to see the patient in the hospital if hospitalist decides to admit and the patient wants to stay. If patient decides to go home, the treatment would be Eliquis 10 mg twice daily for a week and then back to 5 m g twice daily. I gave patient the option of being admitted and he declined at this time he would like to go home. I will write him another prescription for Eliquis as he likely will have enough in his bottle that he brought in with him family was not in the room at this time I told him to hit the call button and I would be happy to explain this to them if they have any questions when they do return. Labs: Lab Results 10/31/19 10/31/19 10/31/19 Range/Units 11:34 11:34 11:34 WBC 7.6 (4.0-10.0) 10^3/ uL RBC 5.08 (4.1-5.3) 10^6/u L Hgb 14.1 (11.7-16.6) g/dL Hct 44.4 (42.0-52.0) % MCV 87.4 (80-94) fL MCH 27.8 L (28.0-34.0) pg MCHC 31.8 (30.0-36.0) g/dL RDW 13.3 (12.1-15.1) % Plt Count 90 L (130-400) 10^3/c mm MPV 11.9 H (7.4-10.4) fL Total Counted 100 (0-100) Segmented Neutroph ils 64 % Band Neutrophils 1.0 % Lymphocytes (Manua l) 28 % Monocytes (Manual) 4.0 % Absolute Monocytes 0.3 (0.1-0.6) 10^3/c mm Eosinophils (Manua l) 3 % Absolute Eosinophi ls 0.2 (0.0-0.7) 10^3/c mm Platelet Estimate Decreased (Normal) Giant Platelets Trace D-Dimer (0-0.59) ug/mIFE U Sodium 137 (136-145) mmol/L Potassium 4.4 (3.5-5.1) mmol/L Chloride 100 (98-107) mmol/L Carbon Dioxide 27 (22-29) mmol/L Anion Gap 14.4 (5-19) BUN 12 (8-23) mg/dL Creatinine 0.8 (0.7-1.2) mg/dL Glucose 110 (65-115) mg/dL Calculated Osmolal ity 281 L (285-295) mOsm/k g Calcium 9.5 (8.5-10.5) mg/dL Total Bilirubin 0.8 (0.15-1.2) mg/dL AST 22 (0-40) U/L ALT 26 (0-41) U/L Alkaline Phosphata se 91 (40-130) IU/L Troponin T Baselin e 31 H (0-15) ng/mL Troponin T 120 Min [place]ora (0-15) ng/mL Delta Troponin T (0-10) ABS# NT-Pro-B Natriuret Pep (0-450) pg/mL Total Protein 7.7 (6.6-8.7) g/dL Albumin 3.6 (3.5-5.2) g/dL Globulin 4.1 (1.3-4.6) g/dL 10/31/19 10/31/19 10/31/19 Range/Units 11:34 11:34 13:34 WBC (4.0-10.0) 10^3/ uL RBC (4.1-5.3) 10^6/u L Hgb (11.7-16.6) g/dL Hct (42.0-52.0) % MCV (80-94) fL MCH (28.0-34.0) pg MCHC (30.0-36.0) g/dL RDW (12.1-15.1) % Plt Count (130-400) 10^3/c mm MPV (7.4-10.4) fL Total Counted (0-100) Segmented Neutroph ils % Band Neutrophils % Lymphocytes (Manua l) % Monocytes (Manual) % Absolute Monocytes (0.1-0.6) 10^3/c mm Eosinophils (Manua l) % Absolute Eosinophi ls (0.0-0.7) 10^3/c mm Platelet Estimate (Normal) Giant Platelets D-Dimer 1.68 H (0-0.59) ug/mIFE U Sodium (136-145) mmol/L Potassium (3.5-5.1) mmol/L Chloride (98-107) mmol/L Carbon Dioxide (22-29) mmol/L Anion Gap (5-19) BUN (8-23) mg/dL Creatinine (0.7-1.2) mg/dL Glucose (65-115) mg/dL Calculated Osmolal ity (285-295) mOsm/k g Calcium (8.5-10.5) mg/dL Total Bilirubin (0.15-1.2) mg/dL AST (0-40) U/L ALT (0-41) U/L Alkaline Phosphata se (40-130) IU/L Troponin T Baselin e (0-15) ng/mL Troponin T 120 Min t[place]ora 28.23 H (0-15) ng/mL Delta Troponin T -2.77 L (0-10) ABS# NT-Pro-B Natriuret Pep 1647 H (0-450) pg/mL Total Protein (6.6-8.7) g/dL Albumin (3.5-5.2) g/dL Globulin (1.3-4.6) g/dL Imaging Data^: CXR: Radiologist's impression: [address] [address] XRay Report Signed Patient: Dakota Mercado #: [id number] : 4Acct#:[id number] Age/Sex: 73 / MADM Date: 10/31/19 Loc: ERRoom/Bed: Attending Dr: Ordering Provider/Ordering MD: Татьяна Strange MD Date of Service: 10/31/19 Procedure(s): XR chest 1V portable [id number] Accession Number(s): [id number] Report Number: [id number] PROCEDURE INFORMATION: Exam: XR Chest, 1 View Exam date and time: 10/31/2019 12:02 PM Age: 73 years old Clinical indication: Chest pain; Type not specified; Prior surgery; Surgery type: Cabg; Additional info: Chest pain since 2 am today TECHNIQUE: Imaging protocol: XR of the chest Views: 1 view. COMPARISON: CR XR chest 1V portable [id number] 08/26/2019 10:44 AM FINDINGS: Lungs: Minimal interstitial thickening in the lung bases, stable small nodules consistent with granulomas. Pleural space: Left diaphragmatic pleural calcification. No pleural effusion. No pneumothorax. Heart/Mediastinum: No cardiomegaly. Bones/joints: No acute findings. Sternotomy. XR/XR chest 1V portable [id number] IMPRESSION: No interval change. Nonspecific interstitial thickening and nodularity. Dictated By:Wilfredo Morgan MD Signed By:Wilfredo Morgan MDSigned Date/Time:10/31/19 1248 DD/ CTA Chest: Radiologist's impression: [place] [address] CT Scan Report Signed Patient: Dakota Mercado #: [id number] : 1946Acct#:[id number] Age/Sex: 73 / MADM Date: 10/31/19 Loc: ERRoom/Bed: Attending Dr: Ordering Provider/Ordering MD: Татьяна Strange MD Date of Service: 10/31/19 Procedure(s): CT angio chest PE protcl [id number] Accession Number(s): [id number] Report Number: [id number] WS: [id number] CTA OF THE CHEST WITH PULMONARY EMBOLISM PROTOCOL TECHNIQUE: High-resolution contrast enhanced CTA of the chest with coronal and sagittal reformatted images with pulmonary embolism protocol. MIP images are also reviewed. CLINICAL INFORMATION: elevated d dimer, cp COMPARISON: CTA August 26, 2019, CTA August 17, 2019, CTA April 24, 2019, DLP: 577.[address] scans at [facility] use at least one of these dose optimization techniques: automated exposure control; mA and/or kV adjustment per patient size (includes targeted exams where dose is matched to clinical indication); or iterative reconstruction. FINDINGS: Proximal main pulmonary arteries are normal. Poor filling of a right lower lobe pulmonary artery branch with a small filling defect suspicious for pulmonary embolus. Left side pulmonary arteries are normal. Prior postoperative changes sternotomy with coronary artery bypass grafting. Aortic valve replacement. Moderate chronic emphysematous changes. Atelectasis in the lung bases. Stable seroma posterior to the sternotomy is unchanged. Small left adrenal adenoma. Right renal cyst. Pleural plaques left lower lobe. Notified Татьяна Strange MD at 10/31/2019 2:[address]/CT angio chest PE protcl [id number] IMPRESSION: 1. Poor filling of a posterior subsegmental right lower lobe branch suspicious for pulmonary embolus. This is new from previous. 2. Proximal main pulmonary arteries are normal. 3. Atelectasis in the lung bases. 4. Sternotomy with stable anterior mediastinal fluid Dictated By:Hernando Hsieh MD Signed By:Hernando Hsieh MDSigned Date/Time:10/31/19 1425 DD/ EKG Data^: EKG 1: Attestation: I personally reviewed and interpreted this EKG as follows: EKG interpretation date: 10/31/19 EKG interpretation time: 11:22 Prior EKG tracings: available for review Interpretation: Sinus bradycardia rate 48 interventricular conduction delay, nonspecific ST elevations no change from 08/17/2019 Discharge Plan Discharge Patient Disposition: Home, Self-Care Clinical Impression: Chest pain, pleuritic Pulmonary embolus Qualifiers: Pulmonary embolism type: unspecified Chronicity: acute Acute cor pulmonale presence: unspecified Qualified Code(s): I26.99 - Other pulmonary embolism without acute cor pulmonale Condition: Stable Prescriptions: New Eliquis 5 mg tablet See Rx Instructions .ROUTE .COMPLEX Qty: 30 RF: 0 No Action fluoxetine 20 mg capsule 20 mg PO DAILY RF: 0 metoprolol tartrate 25 mg tablet 12.5 mg PO BID RF: 0 fluticasone propionate 50 mcg/actuation spray,suspension 1 spray INTRANASAL BID Qty: 18.2 RF: 2 albuterol sulfate 90 mcg/actuation HFA aerosol inhaler 1 puff INHALATION Q4H PRN (Reason: Shortness Of Breath) RF: 0 fluticasone propion-salmeterol [Advair Diskus] 100-50 mcg/dose blister with device 1 inh INHALATION BID Qty: 14 RF: 0 furosemide [Lasix] 40 mg Tablet 40 mg PO BID 30 Days Qty: 60 RF: 0 atorvastatin [Lipitor] 40 mg Tablet 40 mg PO DAILY 30 Days Qty: 0 RF: 0 tamsulosin [Flomax] 0.4 mg capsule 0.4 mg PO BID 30 Days Qty: 180 RF: 3 aspirin 81 mg Tablet,Chewable 1 tab PO DAILY 30 Days Qty: 0 RF: 0 Nitrostat 0.4 mg Tablet, Sublingual 0.4 mg SUBLINGUAL Q5M PRN (Reason: Chest Pain) RF: 0 Eliquis 5 mg tablet 5 mg PO DAILY RF: 0 Referrals: Дмитрий Santiago DO [Primary Care Provider] - Patient Instructions: Chest Pain (ED), Pleurisy (ED) Activity Restrictions/Additional Instructions: The radiologist said that your CAT scan was suspicious for a small blood clot in your lung as compared to all your previous CAT scans. As you and I discussed, we could attempt to admit you to the hospitalist overnight or you can go home which at this time you have elected to do. Treatment for this pain and suspic ious area on your CT scan is to increase her Eliquis to 10 mg twice a day for 1 week. This means you will take 2 tabs of Eliquis in the morning and 2 tabs at night. I talked to Dr. Cruz about all your tests and studies and this is what he recommended should you not need admission for any other issues. Return to the emergency department immediately if you feel you are worse in any way or have any emergent problem. We are happy to evaluate you. Discharge Date/Time: 10/31/19 15:54 Coding Level of Care Code ED [employer] Bever[employer] Controller for Chg Fwd Exam Comprehensive The documentation recorded by the Boby jorge Valerie R, accurately reflects the service I personally performed and the decisions made by me, Татьяна Strange MD Oct 31, 2019 10:57
[2019-10-31 11:47] LABS: Hematocrit 44.4 % (42.0-52.0); Hemoglobin 14.1 g/dL (11.7-16.6); Mean Corpuscular HGB Conc 31.8 g/dL (30.0-36.0); Mean Corpuscular Hemoglobin 27.8 pg (28.0-34.0); Mean Corpuscular Volume 87.4 fL (80-94); Mean Platelet Volume 11.9 fL (7.4-10.4); Platelet Count 90 10^3/cmm (130-400); Red Blood Count 5.08 10^6/uL (4.1-5.3); Red Cell Distribution Width 13.3 % (12.1-15.1); White Blood Count 7.6 10^3/uL (4.0-10.0)
[2019-10-31] MEDS: ipratropium-albuterol 3 mL Neb INHALATION (12:01)
[2019-10-31 12:03] VITALS: PULSE 55; RESP 20; O2SAT 95
[2019-10-31 12:08] VITALS: PULSE 49; RESP 20; O2SAT 95
[2019-10-31 12:08] LABS: Alanine Aminotransferase 26 U/L (0-41); Albumin Level 3.6 g/dL (3.5-5.2); Alkaline Phosphatase 91 IU/L (40-130); Anion Gap 14.4 (5-19); Aspartate Amino Transferase 22 U/L (0-40); Blood Urea Nitrogen 12 mg/dL (8-23); Calcium 9.5 mg/dL (8.5-10.5); Carbon Dioxide 27 mmol/L (22-29); Chloride 100 mmol/L (98-107); Creatinine Clr Calc Pharmacy 96.5187; Globulin 4.1 g/dL (1.3-4.6); Glucose 110 mg/dL (65-115); Osmolality Calculated 281 mOsm/kg (285-295); Potassium 4.4 mmol/L (3.5-5.1); Sodium 137 mmol/L (136-145); Total Bilirubin 0.8 mg/dL (0.15-1.2); Total Protein 7.7 g/dL (6.6-8.7)
[2019-10-31 12:12] LABS: NT Pro B Type Natriuretic Pept 1647 pg/mL (0-450)
[2019-10-31 12:14] LABS: Troponin(5th) Baseline 31 ng/mL (0-15)
[2019-10-31 12:21] LABS: D Dimer 1.68 ug/mIFEU (0-0.59)
[2019-10-31 12:27] LABS: Absolute Eosinophils 0.2 10^3/cmm (0.0-0.7); Absolute Segmented Neutrophil 4.8 10/cmm (1.6-7.1); Band Neutrophils Absolute 0.1 10^3/cmm (0.0-1.2); Eosinophils 3 %; Giant Platelets Trace; Lymphocytes 28 %; Monocytes Absolute 0.3 10^3/cmm (0.1-0.6); Platelet Estimate Decreased (Normal); Segmented Neutrophils 64 %; Total Cells Counted 100 (0-100)
[2019-10-31] MEDS: nitroglycerin 0.4 mg sublingual Tablet SUBLINGUAL ×2 (12:28→12:38)
--- NOTE | 2019-10-31 12:49 | CT_ITS ---
WS: [id number] CTA OF THE CHEST WITH PULMONARY EMBOLISM PROTOCOL TECHNIQUE: High-resolution contrast enhanced CTA of the chest with coronal and sagittal reformatted i mages with pulmonary embolism protocol. MIP images are also reviewed. CLINICAL INFORMATION: elevated d dimer, cp COMPARISON: CTA August 26, 2019, CTA August 17, 2019, CTA April 24, 2019, DLP: 577.[address] [facility] use at least one of these dose optimization techniques: automat ed exposure control; mA and/or kV adjustment per patient size (includes targeted exams where dose is matched to clinical indication); or iterative reconstruction. FINDINGS: Proximal main pulmonary arteries are normal. Poor filling of a right lower lobe pulmonary artery bran ch with a small filling defect suspicious for pulmonary embolus. Left side pulmonary arteries are nor mal. Prior postoperative changes sternotomy with coronary artery bypass grafting. Aortic valve replacement . Moderate chronic emphysematous changes. Atelectasis in the lung bases. Stable seroma posterior to t he sternotomy is unchanged. Small left adrenal adenoma. Right renal cyst. Pleural plaques left lower lobe. Notified Татьяна Strange MD at 10/31/2019 2:[address]/CT angio chest PE protcl [id number] IMPRESSION: 1. Poor filling of a posterior subsegmental right lower lobe branch suspicious for pulmonary embolus. This is new from previous. 2. Proximal main pulmonary arteries are normal. 3. Atelectasis in the lung bases. 4. Sternotomy with stable anterior mediastinal fluid
--- NOTE | 2019-10-31 13:05 | PC.NURSE ---
Patient's pain completely resolved with the series of 3 nitro, patient's pain did return shortly after back to a 12/29, Dr. GILLETTE
[2019-10-31] MEDS: iohexol 350 mg/mL 100 mL Btl IV (13:25)
[2019-10-31] MEDS: nitroglycerin 1 gm/inch oint Pkt 0.5 INCH TOPICAL (13:28)
[2019-10-31 14:28] LABS: Troponin 5 2HR 28.23 ng/mL (0-15)
[2019-10-31 14:29] LABS: Troponin 5 2HR Delta -2.77 ABS# (0-10)
[2019-10-31 15:53] VITALS: BP 198/91; PULSE 51; RESP 18; O2SAT 96
--- NOTE | 2019-10-31 17:19 | ECG_ITS ---
Measurements Intervals [place] Rate: 47 P: 68 WA: 172 QRS: 61 QRSD: 109 T: 120 QT: 448 QTc: 396 SINUS BRADYCARDIA POSSIBLE LEFT ATRIAL ENLARGEMENT [-0.1mV P WAVE IN V1/V2] NONSPECIFIC ST & T-WAVE ABNORMALITY Compared to ECG 08/26/2019 13:02:37 Atrial fibrillation no longer present Ventricular premature complex(es) no longer present Aberrant conduction of supraventricular beat(s) no longer present Intraventricular conduction delay no longer present Possible ischemia no longer present T-wave abnormality still present Electronically Signed On 10-31-2019 19:36:29 CDT by Wes Cruz M.D. [id number]
== END 2019-10-31 15:54 | disposition home or self-care (01) ==
PROVIDERS: Emergency Provider Emergency Medicine; Family Provider Family Medicine; PCP Family Medicine
DX: R07.81 Pleurodynia (principal); I26.99 Other pulmonary embolism without acute cor pulmonale; I71.4 Abdominal aortic aneurysm, without rupture; E78.5 Hyperlipidemia, unspecified; F17.200 Nicotine dependence, unspecified, uncomplicated; Z79.01 Long term (current) use of anticoagulants; Z95.1 Presence of aortocoronary bypass graft; Z99.81 Dependence on supplemental oxygen
CPT/HCPCS: 12345; 36415; 71045; 71275; 80053; 83880; 84484; 85007; 85027; 85378; 93005; 94640; 99281; 99284; Q9967

== ENCOUNTER 2020-02-07 13:47 | Emergency (ER) | payer MEDICARE, OTHER, SELFPAY ==
[2020-02-07 13:54] VITALS: BP 136/66; PULSE 52; RESP 18; TEMP 36.3; O2SAT 97; BMI 34.0
--- NOTE | 2020-02-07 13:58 | CT_ITS ---
WS: [id number] Examination: CT of the chest, abdomen pelvis. HISTORY: Abdominal pain TECHNIQUE: Patient was scanned with Omnipaque 300, 95 mL. FINDINGS: The chest shows previous sternotomy. The aorta shows a prominent stent in the right aorta. The azygos lymph node shows calcification. There is chronic obstructive pulmonary disease in both lung han which are mildly hypoaerated The pulmonary arteries fill readily no evidence of thromboembolic disease. The descending thoracic aorta shows heavy arteriosclerotic changes. There is a small amount of right pleural effusion evident. Along the left pleural surfaces heavy calc ification over the diaphragm. This suggests asbestosis or previous inflammatory changes with calcific ation. CT of the abdomen pelvis show small amount of ascites bilaterally. The liver appears to be mildly con tracted. The gallbladder shows a large solitary stone. The pancreas head, body, tail are normal. The spleen is of normal size and there is fluid seen adjacent to the spleen. The aorta inferior vena cava show no definite aneurysms. Anterior sclerotic changes of the iliac vinita stephy. The distal aorta shows ectasia but no aneurysm. There is diverticulosis of the descending sigmoid colon. The urinary bladder was normal. The prostate is enlarged measures 6.6 x 4.8 cm concretions in the prostate are seen. The rectum is normal. The right kidney is a cyst measures 1.7 cm the left kidney appears to be normal. The lumbar spine shows mild degenerate changes the bony pelvis was normal. There is no definite lymphadenopathy seen in the aortic area CT/CT chest abd pel w con* IMPRESSION: There is evidence of a large defect in the gallbladder which appear s to be a large stone. There is fluid seen in the right costophrenic angle. There is a small amount of bilateral ascites. The liver is slightly small. A small cyst of the right kidney. Ectasia of the distal abdominal aorta. There is calcification overriding the left hemidiaphragm raises the question of asbestosis. 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 Tendon is seen in the ascending aorta.
--- NOTE | 2020-02-07 14:04 | ED_ITS ---
HPI - GI Bleed General: Chief complaint: Shortness of Breath/Dyspnea Stated complaint: bloody stool Time Seen by Provider: 02/07/20 13:57 Source: patient Mode of arrival: ambulatory Limitations: no limitations History of Present Illness: HPI Narrative: 74-year-old male with history of COPD states he had increasing weakness and shortness of breath over the last 2 weeks. Patient is on oxygen at home and is not requiring increased oxygen. He has had a mild cough and states he had flecks of blood in his stool and coming from his mouth. He states that started today. He denies any pain anywhere. Denies any fever. Associated symptoms: Denies abdominal pain, chills, easy bruising, fever(s), headache(s), nausea, rash or vomiting Review of Systems Const: Denies: fever(s), chills, body aches or change in appetite Eyes: Denies: blurry vision or eye discomfort ENMT: Denies: throat pain or dental pain Card: Denies: chest pain Resp: Reports: dyspnea and wheezing GI: Denies: abdominal pain, nausea, vomiting or diarrhea : Denies: dysuria Musc: Denies: neck pain or back pain Skin/Breast: Denies: rash Neuro: Denies: headache(s) Psych: Denies: depression Sonu/Lymph: Denies: easy bruising All/Imm: Denies: urticaria PFSH ED PFSH: Medical History Abdominal aortic aneurysm (AAA) Anticoagulation adequate Metabolic alkalosis Respiratory failure with hypoxia Sinus pause Tobacco abuse Transaminitis Family History Brother Cancer Sister Cancer Mother Diabetes Other CAD (coronary artery disease) Social History Smoking and tobacco status: current every day smoker Quit status (tobacco): considering quitting Second hand smoke exposure: Yes Smoking risk assessment/counseling performed?: Yes Alcohol intake: never Physical Exam Const: COMMON NORMALS: no acute distress, patient oriented x3 and healthy appearing HENMT: COMMON NORMALS: normocephalic and atraumatic HEAD & SCALP: normocephalic and atraumatic Eye: COMMON NORMALS: Equal, round and reactive pupils present and EOMs intact bilaterally PUPIL: Yes Equal, round and reactive pupils present Neck/C-Spine: COMMON NORMALS: full ROM and supple Chest: COMMONS NORMALS: normal inspection of the chest and normal palpation of entire chest wall Resp: COMMON NORMALS: normal respiratory effort, No retractions and No use of accessory muscles AUSCULTATION: wheezes Cardio: COMMON NORMALS: regular rate, regular rhythm and No murmurs present (Cardio) RATE: regular rate RHYTHM: regular rhythm GI: COMMON NORMALS: Normal to inspection, nondistended, normoactive bowel sounds present, Soft to palpation, non-tender and no masses PALPATION: Yes Soft to palpation Extremity: COMMON NORMALS: normal to inspection and full ROM Neuro: COMMON NORMALS: patient oriented x3, moves all extremities and no focal motor deficits Psych: COMMON NORMALS: mental status grossly normal, Normal thought process present and cooperative THOUGHT PROCESS: Normal thought process present Skin: COMMON NORMALS: no rashes or lesions noted and no wounds GENERAL SKIN EXAM: no rashes or lesions noted Course Vital Signs: Vital signs: Vital Signs Temperature 97.4 F L 02/07/20 13:54 Pulse Rate 50 L 02/07/20 15:56 Respiratory Rate 16 02/07/20 15:56 Blood Pressure 122/81 02/07/20 15:56 Pulse Oximetry 97 02/07/20 15:56 MDM - GI Bleed MDM Narrative: Medical decision making narrative: 78 presents here with COPD exacerbation. Patient's improved after breathing treatments. He is not requiring any extra oxygen. Patient's rectal exam here showed brown stool with Hemoccult negative. He has no signs of GI bleeding here. Patient's lab work including CT scans were normal. Patient stable for discharge and is to return if worsening. Lab Data: Labs: Lab Results 02/07/20 02/07/20 02/07/20 Range/Units 14:12 14:12 14:12 WBC 6.8 (4.0-10.0) 10^3/ uL RBC 5.08 (4.1-5.3) 10^6/u L Hgb 13.2 (11.7-16.6) g/dL Hct 44.1 (42.0-52.0) % MCV 86.8 (80-94) fL MCH 26.0 L (28.0-34.0) pg MCHC 29.9 L (30.0-36.0) g/dL RDW 15.9 H (12.1-15.1) % Plt Count 77 L (130-400) 10^3/c mm MPV 11.8 H (7.4-10.4) fL Neut % (Auto) 68.2 % Lymph % (Auto) 18.1 % [place] % (Auto) 10.5 % Eos % (Auto) 2.4 % Baso % (Auto) 0.4 % Neut # (Auto) 4.6 (1.8-7.7) 10^3/u L Lymph # (Auto) 1.2 (0.8-4.8) 10^3/u L [place] # (Auto) 0.7 (0.2-0.9) 10^3/u L Eos # (Auto) 0.2 (0.0-0.8) 10^3/u L Baso # (Auto) 0.0 (0.0-0.1) 10^3/u L Nucleated RBC % (a uto) 0 % Nucleated RBCs # 0.0 /100WBC PT 16.30 H (10.5-13.3) SECO NDS INR 1.27 H (0.8-1.2) Sodium 140 (136-145) mmol/L Potassium 4.7 (3.5-5.1) mmol/L Chloride 100 (98-107) mmol/L Carbon Dioxide 32 H (22-29) mmol/L Anion Gap 12.7 (5-19) BUN 17 (8-23) mg/dL Creatinine 0.8 (0.7-1.2) mg/dL Glucose 102 (65-115) mg/dL Calculated Osmolal ity 287 (285-295) mOsm/k g Calcium 9.3 (8.5-10.5) mg/dL Total Bilirubin 0.8 (0.15-1.2) mg/dL AST 29 (0-40) U/L ALT 23 (0-41) U/L Alkaline Phosphata se 89 (40-130) IU/L Total Protein 7.3 (6.6-8.7) g/dL Albumin 3.9 (3.5-5.2) g/dL Globulin 3.4 (1.3-4.6) g/dL Imaging Data^: CT Abd/Pel: Radiologist's impression: [address] [place] [address] CT Scan Report Signed Patient: Dakota Mercado Unit #: [id number] : 1945 Age/Sex: 74 / M ADM Date: 02/07/20 Loc: ER Room/Bed: Attending Dr: Ordering Provider/Ordering MD: Gagan Sandoval MD Date of Service: 02/07/20 Procedure(s): CT chest abd pel w con* Accession Number(s): [id number] Report Number: [id number] WS: [id number] Examination: CT of the chest, abdomen pelvis. HISTORY: Abdominal pain TECHNIQUE: Patient was scanned with Omnipaque 300, 95 mL. FINDINGS: The chest shows previous sternotomy. The aorta shows a prominent stent in the right aorta. The azygos lymph node shows calcification. There is chronic obstructive pulmonary disease in both lung han which are mildly hypoaerated The pulmonary arteries fill readily no evidence of thromboembolic disease. The descending thoracic aorta shows heavy arteriosclerotic changes. There is a small amount of right pleural effusion evident. Along the left pleural surfaces heavy calcification over the diaphragm. This suggests asbestosis or previous inflammatory changes with calcification. CT of the abdomen pelvis show small amount of ascites bilaterally. The liver appears to be mildly contracted. The gallbladder shows a large solitary stone. The pancreas head, body, tail are normal. The spleen is of normal size and there is fluid seen adjacent to the spleen. The aorta inferior vena cava show no definite aneurysms. Anterior sclerotic changes of the iliac arteries. The distal aorta shows ectasia but no aneurysm. There is diverticulosis of the descending sigmoid colon. The urinary bladder was normal. The prostate is enlarged measures 6.6 x 4.8 cm concretions in the prostate are seen. The rectum is normal. The right kidney is a cyst measures 1.7 cm the left kidney appears to be normal. The lumbar spine shows mild degenerate changes the bony pelvis was normal. There is no definite lymphadenopathy seen in the aortic area CT/CT chest abd pel w con* IMPRESSION: There is evidence of a large defect in the gallbladder which appears to be a large stone. There is fluid seen in the right costophrenic angle. There is a small amount of bilateral ascites. The liver is slightly small. A small cyst of the right kidney. Ectasia of the distal abdominal aorta. There is calcification overriding the left hemidiaphragm raises the question of asbestosis. 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 Tendon is seen in the ascending aorta. EKG Data^: EKG 1: Attestation: I personally reviewed and interpreted this EKG as follows: EKG interpretation date: 02/07/20 EKG interpretation time: 14:31 Interpretation: sinus nina hr [address] or [address] abnormalities qrs 147 qtc 439 Discharge Plan Discharge Patient Disposition: Home, Self-Care Clinical Impression: Acute exacerbation of chronic obstructive airways disease Condition: Stable Prescriptions: New prednisone 50 mg tablet 50 mg PO DAILY Qty: 5 RF: 0 No Action fluoxetine 20 mg capsule 20 mg PO DAILY RF: 0 fluticasone propionate 50 mcg/actuation spray,suspension 1 spray INTRANASAL BID Qty: 18.2 RF: 2 metoprolol tartrate 25 mg tablet 25 mg PO BID 90 Days Qty: 180 RF: 3 albuterol sulfate 90 mcg/actuation HFA aerosol inhaler 1 puff INHALATION Q4H PRN (Reason: Shortness Of Breath) RF: 0 fluticasone propion-salmeterol [Advair Diskus] 100-50 mcg/dose blister with device 1 inh INHALATION BID Qty: 14 RF: 0 furosemide [Lasix] 40 mg Tablet 40 mg PO BID 30 Days Qty: 60 RF: 0 atorvastatin [Lipitor] 40 mg Tablet 40 mg PO DAILY 30 Days Qty: 0 RF: 0 tamsulosin [Flomax] 0.4 mg capsule 0.4 mg PO BID 30 Days Qty: 180 RF: 3 aspirin 81 mg Tablet,Chewable 1 tab PO DAILY 30 Days Qty: 0 RF: 0 Nitrostat 0.4 mg Tablet, Sublingual 0.4 mg SUBLINGUAL Q5M PRN (Reason: Chest Pain) RF: 0 Eliquis 5 mg tablet 5 mg PO DAILY RF: 0 Eliquis 5 mg tablet See Rx Instructions .ROUTE .COMPLEX Qty: 30 RF: 0 Discharge Orders: Discharge Order (Routine); Ordered 02/07/20 Ordered By: Gagan Sandoval Referrals: Дмитрий Santiago DO [Primary Care Provider] - 1-3 days Discharge Diet: Advance as tolerated Discharge Activity: Resume usual activity Patient Instructions: Chronic Obstructive Pulmonary Disease (ED) Discharge Date/Time: 02/07/20 15:57 Coding Level of Care Code ED Contract Project Manager for Karen Fwd Exam Comprehensive
--- NOTE | 2020-02-07 14:11 | ECG_ITS ---
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 Measurements Intervals [place] Rate: 50 P: 77 PA: 178 QRS: 269 QRSD: 147 T: 78 QT: 465 QTc: 426 Interpretive Statements SINUS BRADYCARDIA MARKED RIGHT AXIS DEVIATION [QRS AXIS > 100] INTRAVENTRICULAR CONDUCTION DELAY [130+ ms QRS DURATION] Compared to ECG 10/31/2019 13:35:31 Right-axis deviation now present Intraventricular conduction delay now present T-wave abnormality no longer present Electronically Signed On 02-07-2020 16:14:19 CDT by Gloria Batista M.D. [email or web address]/store/[id number]
[2020-02-07 14:20] LABS: Basophils % 0.4 %; Eosinophils # 0.2 10^3/uL (0.0-0.8); Eosinophils % 2.4 %; Hematocrit 44.1 % (42.0-52.0); Hemoglobin 13.2 g/dL (11.7-16.6); Lymphocytes # 1.2 10^3/uL (0.8-4.8); Lymphocytes % 18.1 %; Mean Corpuscular HGB Conc 29.9 g/dL (30.0-36.0); Mean Corpuscular Volume 86.8 fL (80-94); Mean Platelet Volume 11.8 fL (7.4-10.4); Monocytes # 0.7 10^3/uL (0.2-0.9); Monocytes % 10.5 %; Neutrophils # 4.6 10^3/uL (1.8-7.7); Neutrophils % 68.2 %; Nucleated Red Blood Cells % 0 %; Platelet Count 77 10^3/cmm (130-400); Red Blood Count 5.08 10^6/uL (4.1-5.3); Red Cell Distribution Width 15.9 % (12.1-15.1); White Blood Count 6.8 10^3/uL (4.0-10.0)
[2020-02-07] MEDS: ipratropium-albuterol 3 mL Neb INHALATION (14:26)
[2020-02-07 14:27] VITALS: PULSE 56; RESP 18; O2SAT 94
[2020-02-07 14:31] VITALS: BP 122/81; PULSE 49; RESP 18; O2SAT 93
[2020-02-07 14:31] LABS: INR 1.27 (0.8-1.2)
[2020-02-07 14:33] LABS: Alanine Aminotransferase 23 U/L (0-41); Albumin Level 3.9 g/dL (3.5-5.2); Alkaline Phosphatase 89 IU/L (40-130); Anion Gap 12.7 (5-19); Aspartate Amino Transferase 29 U/L (0-40); Blood Urea Nitrogen 17 mg/dL (8-23); Calcium 9.3 mg/dL (8.5-10.5); Carbon Dioxide 32 mmol/L (22-29); Chloride 100 mmol/L (98-107); Globulin 3.4 g/dL (1.3-4.6); Glucose 102 mg/dL (65-115); Osmolality Calculated 287 mOsm/kg (285-295); Potassium 4.7 mmol/L (3.5-5.1); Sodium 140 mmol/L (136-145); Total Bilirubin 0.8 mg/dL (0.15-1.2); Total Protein 7.3 g/dL (6.6-8.7)
[2020-02-07 15:30] VITALS: BP 136/96; PULSE 53; RESP 18; O2SAT 97
[2020-02-07 15:55] VITALS: BP 122/81; PULSE 50; RESP 16; O2SAT 97
[2020-02-07 15:56] VITALS: BP 122/81; PULSE 50; RESP 16; O2SAT 97
== END 2020-02-07 15:57 | disposition home or self-care (01) ==
PROVIDERS: Emergency Provider Emergency Medicine; PCP Family Medicine
DX: J44.1 Chronic obstructive pulmonary disease with (acute) exacerbation (principal); Z79.82 Long term (current) use of aspirin; Z79.01 Long term (current) use of anticoagulants; F17.210 Nicotine dependence, cigarettes, uncomplicated
CPT/HCPCS: 12345; 36415; 71260; 74177; 80053; 82272; 85025; 85610; 93005; 94640; 96374; 96375; 99282; 99283; J2930; Q9967

== ENCOUNTER 2020-03-11 10:07 | Emergency (ER) | payer MEDICARE, OTHER, SELFPAY ==
[2020-03-11] VITALS (10 sets, daily range): BP systolic 98–149; BP diastolic 71–99; PULSE 83–132; RESP 14–22; TEMP 36.7; O2SAT 94–99; BMI 33.1
--- NOTE | 2020-03-11 10:39 | XRR_ITS ---
PROCEDURE INFORMATION: Exam: XR Chest, 1 View Exam date and time: 03/11/2020 11:16 AM Age: 74 years old Clinical indication: Dyspnea; Prior surgery; Surgery type: Cardiac TECHNIQUE: Imaging protocol: XR of the chest Views: 1 view. COMPARISON: CT chest abd pel w con* 02/07/2020 2:45 PM FINDINGS: Lungs: Subtle opacity right lower lobe. Mild basilar airspace disease/atelectasis on the left. Pleural calcifications pleural thickening and possibly a small amount of pleural fluid on the left. Subpulmonic effusion on the right. Pleural space: See Lungs finding. Heart/Mediastinum: cardiac silhouette is enlarged. Prior sternotomy. Bones/joints: See Heart/Mediastinum finding. XR/XR chest 1V portable [id number] IMPRESSION: Subtle opacity right lower lobe. Mild basilar airspace disease/atelectasis on the left. Pleural calcifications pleural thickening and possibly a small amount of pleural fluid on the left. Subpulmonic effusion on the right.
--- NOTE | 2020-03-11 10:39 | ECG_ITS ---
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 Measurements Intervals [place] Rate: 128 P: [place]: -1 QRS: -60 QRSD: 154 T: 95 QT: 340 QTc: 497 Interpretive Statements ATRIAL FIBRILLATION WITH RAPID VENTRICULAR RESPONSE MARKED LEFT AXIS DEVIATION [QRS AXIS < -30] LEFT BUNDLE BRANCH BLOCK [120+ ms QRS DURATION, 80+ ms Q/S IN V1/V2, 85+ ms R IN I/aVL/V5/V6] INTERPRETATION BASED ON A DEFAULT AGE OF 40 YEARS Compared to ECG 02/07/2020 14:31:31 Left-axis deviation now present Left bundle-branch block now present Sinus bradycardia no longer present Right-axis deviation no longer present Intraventricular conduction delay no longer present Electronically Signed On 03-11-2020 16:26:17 CDT by Wes Cruz M.D. [email or web address].[email or web address]/[id number] kevin
--- NOTE | 2020-03-11 10:50 | W.ED.SOB ---
HPI - SOB/Dyspnea General: Chief Complaint: Shortness of Breath/Dyspnea Stated Complaint: elevated bp & hr/sob Time Seen by Provider: 03/11/20 10:39 History of Present Illness: HPI Narrative: 74-year-old male seen initially on arrival to the room from triage. He is in A. fib with rapid ventricular response. He denies any chest pain but he said significant short of breath. This all began at 4 AM this morning. He is not had any chest pain. He has had A. fib in the past according to his . He has a history of a previous aortic valve replacement and was put on Eliquis for that. He has been taking this regularly. MD elicited complaint: shortness of breath Pertinent past history: congestive heart failure and other (Atrial fibrillation) Onset (ago): hour(s) (6) Timing: constant Exacerbating factors: lying flat and exertion Relieving factors: oxygen, rest and upright position Known history of: congestive heart failure and other (Atrial fibrillation) Associated symptoms: Reports dizziness, lightheadedness, nausea, palpitations and vomiting; Deny chest pain, fever(s), hemoptysis or syncope Treatment prior to arrival: none Review of Systems Const: Denies: fever(s) ENMT: Denies: throat pain, ear or mastoid pain, nasal discharge or nasal congestion Card: Reports: palpitations and lightheadedness; Denies: chest pain or syncope Resp: Denies: hemoptysis GI: Reports: nausea and vomiting : Denies: flank pain, dysuria, urinary frequency or urinary urgency Skin/Breast: Denies: rash or pruritus Neuro: Reports: dizziness PFSH ED PFSH: Medical History Abdominal aortic aneurysm (AAA) Anticoagulation adequate Metabolic alkalosis Respiratory failure with hypoxia Sinus pause Tobacco abuse Transaminitis Family History Brother Cancer Sister Cancer Mother Diabetes Other CAD (coronary artery disease) Social History Smoking and tobacco status: current every day smoker Quit status (tobacco): considering quitting Second hand smoke exposure: Yes Smoking risk assessment/counseling performed?: Yes Alcohol intake: never Physical Exam Const: COMMON NORMALS: no acute distress GENERAL APPEARANCE: cooperative and comfortable ORIENTATION/CONSCIOUSNESS: Yes awake, Yes oriented to person, Yes oriented to place and Yes oriented to time Eye: COMMON NORMALS: Equal, round and reactive pupils present, EOMs intact bilaterally, conjunctivae normal and no scleral icterus CONJUNCTIVA: Yes conjunctivae normal PUPIL: Yes Equal, round and reactive pupils present Neck/C-Spine: COMMON NORMALS: full ROM, no lymphadenopathy, supple and no JVD Lymph: LYMPHATIC: no lymphadenopathy noted and no lymphedema noted Resp: COMMON NORMALS: normal respiratory effort, No retractions, No use of accessory muscles and clear to auscultation bilaterally AUSCULTATION: clear to auscultation bilaterally Cardio: COMMON NORMALS: no JVD RATE: tachycardic RHYTHM: abnormal rhythm irregularly irregular HEART SOUNDS: Murmur heart sound present systolic Location: left sternal border Intensity: II/ Characteristics: soft (Difficult to hear because of irregular rate and rhythm) GI: COMMON NORMALS: Soft to palpation and No hepatosplenomegaly present AUSCULTATION: Yes normoactive bowel sounds PALPATION: Yes Soft to palpation, No Tenderness to palpation present (GI), No Guarding due to palpation present (GI) and Yes No hepatosplenomegaly present Extremity: COMMON NORMALS: normal to inspection, capillary refill normal, no clubbing, cyanosis or edema, no calf tenderness and no pedal edema Neuro: SENSORIUM/ORIENTATION: Yes oriented to person, Yes oriented to place and Yes oriented to time Skin: COMMON NORMALS: no rashes or lesions noted GENERAL SKIN EXAM: no rashes or lesions noted Course Vital Signs: Vital signs: Vital Signs Temperature 98.1 F 03/11/20 10:21 Pulse Rate 85 03/11/20 14:48 Respiratory Rate 20 H 03/11/20 14:48 Blood Pressure 129/79 03/11/20 14:48 Pulse Oximetry 97 03/11/20 14:48 MDM - SOB/Dyspnea MDM Narrative: Medical decision making narrative: For IV Lopressor and p.o. metoprolol patient's rate is well controlled in the 80s and 90s he remains in atrial fibrillation he is on Eliquis. Organ to discharge him home talk to his will have him take 50 mg of the oral metoprolol tonight at around 8 and 9 PM tomorrow morning he will start metoprolol XL 50 mg daily. Follow-up with his primary care doctor within the next 5 to 7 days. If he has any further problems return to the emergency room. Lab Data: Labs: Lab Results 03/11/20 03/11/20 03/11/20 Range/Units 10:40 10:40 10:40 WBC 6.7 (4.0-10.0) 10^3/ uL RBC 4.87 (4.1-5.3) 10^6/u L Hgb 12.8 (11.7-16.6) g/dL Hct 42.1 (42.0-52.0) % MCV 86.4 (80-94) fL MCH 26.3 L (28.0-34.0) pg MCHC 30.4 (30.0-36.0) g/dL RDW 16.5 H (12.1-15.1) % Plt Count 144 (130-400) 10^3/c mm MPV 11.4 H (7.4-10.4) fL Neut % (Auto) 71.3 % Lymph % (Auto) 15.2 % [place] % (Auto) 10.1 % Eos % (Auto) 2.6 % Baso % (Auto) 0.5 % Neut # (Auto) 4.75 (1.8-7.7) 10^3/u L Lymph # (Auto) 1.0 (0.8-4.8) 10^3/u L [place] # (Auto) 0.7 (0.2-0.9) 10^3/u L Eos # (Auto) 0.2 (0.0-0.8) 10^3/u L Baso # (Auto) 0.0 (0.0-0.1) 10^3/u L Nucleated RBC % (a uto) 0 % Nucleated RBCs # 0.0 /100WBC Sodium 137 (136-145) mmol/L Potassium 3.9 (3.5-5.1) mmol/L Chloride 97 L (98-107) mmol/L Carbon Dioxide 30 H (22-29) mmol/L Anion Gap 13.9 (5-19) BUN 18 (8-23) mg/dL Creatinine 0.9 (0.7-1.2) mg/dL Glucose 123 H (65-115) mg/dL Calculated Osmolal ity 282 L (285-295) mOsm/k g Calcium 9.9 (8.5-10.5) mg/dL Total Bilirubin 0.9 (0.15-1.2) mg/dL AST 26 (0-40) U/L ALT 22 (0-41) U/L Alkaline Phosphata se 98 (40-130) IU/L Troponin T Baselin e 108 H* (0-15) ng/L Troponin T 120 Min [place] (0-15) ng/L Delta Troponin T (0-10) ABS# NT-Pro-B Natriuret Pep 1480 H (0-450) pg/mL Total Protein 7.6 (6.6-8.7) g/dL Albumin 4.4 (3.5-5.2) g/dL Globulin 3.2 (1.3-4.6) g/dL Urine Color (Yellow) Urine Appearance (CLEAR) Urine pH (5-7) Ur Specific Gravit y (1.005-1.030) Urine Protein (Negative) Urine Glucose (UA) (Normal) Urine Ketones (Negative) Urine Blood (Negative) Urine Nitrate (Negative) Urine Bilirubin (NEGATIVE) Urine Urobilinogen (Negative) mg/dL Ur Leukocyte Judith ase (Negative) 03/11/20 03/11/20 Range/Units 11:03 12:33 WBC (4.0-10.0) 10^3/ uL RBC (4.1-5.3) 10^6/u L Hgb (11.7-16.6) g/dL Hct (42.0-52.0) % MCV (80-94) fL MCH (28.0-34.0) pg MCHC (30.0-36.0) g/dL RDW (12.1-15.1) % Plt Count (130-400) 10^3/c mm MPV (7.4-10.4) fL Neut % (Auto) % Lymph % (Auto) % [place] % (Auto) % Eos % (Auto) % Baso % (Auto) % Neut # (Auto) (1.8-7.7) 10^3/u L Lymph # (Auto) (0.8-4.8) 10^3/u L [place] # (Auto) (0.2-0.9) 10^3/u L Eos # (Auto) (0.0-0.8) 10^3/u L Baso # (Auto) (0.0-0.1) 10^3/u L Nucleated RBC % (a uto) % Nucleated RBCs # /100WBC Sodium (136-145) mmol/L Potassium (3.5-5.1) mmol/L Chloride (98-107) mmol/L Carbon Dioxide (22-29) mmol/L Anion Gap (5-19) BUN (8-23) mg/dL Creatinine (0.7-1.2) mg/dL Glucose (65-115) mg/dL Calculated Osmolal ity (285-295) mOsm/k g Calcium (8.5-10.5) mg/dL Total Bilirubin (0.15-1.2) mg/dL AST (0-40) U/L ALT (0-41) U/L Alkaline Phosphata se (40-130) IU/L Troponin T Baselin e (0-15) ng/L Troponin T 120 Min [place] 103.0 H (0-15) ng/L Delta Troponin T -5.0 L (0-10) ABS# NT-Pro-B Natriuret Pep (0-450) pg/mL Total Protein (6.6-8.7) g/dL Albumin (3.5-5.2) g/dL Globulin (1.3-4.6) g/dL Urine Color Straw (Yellow) Urine Appearance Clear (CLEAR) Urine pH 6.5 (5-7) Ur Specific Gravit y 1.010 (1.005-1.030) Urine Protein Neg (Negative) Urine Glucose (UA) Norm (Normal) Urine Ketones Negative (Negative) Urine Blood Neg (Negative) Urine Nitrate Negative (Negative) Urine Bilirubin Neg (NEGATIVE) Urine Urobilinogen Norm (Negative) mg/dL Ur Leukocyte Judith ase Negative (Negative) Discharge Plan Discharge Patient Disposition: Home, Self-Care Clinical Impression: Atrial fibrillation, COPD (chronic obstructive pulmonary disease), Hypertension, CAD (coronary artery disease) Condition: Stable Prescriptions: New metoprolol succinate 50 mg capsule,sprinkle,ER 24hr 50 mg PO DAILY Qty: 30 RF: 0 No Action fluoxetine 20 mg capsule 20 mg PO DAILY RF: 0 fluticasone propionate 50 mcg/actuation spray,suspension 1 spray INTRANASAL BID Qty: 18.2 RF: 2 albuterol sulfate 90 mcg/actuation HFA aerosol inhaler 1 puff INHALATION Q4H PRN (Reason: Shortness Of Breath) RF: 0 fluticasone propion-salmeterol [Advair Diskus] 100-50 mcg/dose blister with device 1 inh INHALATION BID Qty: 14 RF: 0 atorvastatin [Lipitor] 40 mg Tablet 40 mg PO DAILY 30 Days Qty: 0 RF: 0 tamsulosin [Flomax] 0.4 mg capsule 0.4 mg PO BID 30 Days Qty: 180 RF: 3 aspirin 81 mg Tablet,Chewable 1 tab PO DAILY 30 Days Qty: 0 RF: 0 nitroglycerin [Nitrostat] 0.4 mg Tablet, Sublingual 0.4 mg SUBLINGUAL Q5M PRN (Reason: Chest Pain) RF: 0 Eliquis 5 mg tablet 5 mg PO DAILY RF: 0 Lasix 40 mg tablet 40 mg PO DAILY RF: 0 albuterol sulfate 2.5 mg /3 mL (0.083 %) Solution For Nebulization 2.5 mg INHALATION QID PRN (Reason: Shortness Of Breath) RF: 0 Discharge Orders: Discharge Order (Routine); Ordered 03/11/20 Ordered By: Josh Chao Referrals: Дмитрий Santiago DO [Primary Care Provider] - Discharge Date/Time: 03/11/20 14:49 Coding Level of Care Code ED Oil Burner Servicer And Installer for Chg Fwd Exam Comprehensive
[2020-03-11 10:59] LABS: Basophils % 0.5 %; Eosinophils # 0.2 10^3/uL (0.0-0.8); Eosinophils % 2.6 %; Hematocrit 42.1 % (42.0-52.0); Hemoglobin 12.8 g/dL (11.7-16.6); Lymphocytes % 15.2 %; Mean Corpuscular HGB Conc 30.4 g/dL (30.0-36.0); Mean Corpuscular Hemoglobin 26.3 pg (28.0-34.0); Mean Corpuscular Volume 86.4 fL (80-94); Mean Platelet Volume 11.4 fL (7.4-10.4); Monocytes # 0.7 10^3/uL (0.2-0.9); Monocytes % 10.1 %; Neutrophils # 4.75 10^3/uL (1.8-7.7); Neutrophils % 71.3 %; Nucleated Red Blood Cells % 0 %; Platelet Count 144 10^3/cmm (130-400); Red Blood Count 4.87 10^6/uL (4.1-5.3); Red Cell Distribution Width 16.5 % (12.1-15.1); White Blood Count 6.7 10^3/uL (4.0-10.0)
[2020-03-11 11:10] LABS: Add Urine Microscopic? NO
[2020-03-11 11:11] LABS: Bilirubin Urine Neg (NEGATIVE); Blood Urine Neg (Negative); Glucose Urine UA Norm (Normal); Ketones Urine Negative (Negative); Leukocyte Esterase Urine Negative (Negative); Nitrate Urine Negative (Negative); Protein Urine Neg (Negative); Urine Appearance Clear (CLEAR); Urine Color Straw (Yellow); Urobilinogen Urine Norm (Negative); pH Urine 6.5 (5-7)
[2020-03-11 11:22] LABS: Troponin(5th) Baseline 108 ng/L (0-15)
[2020-03-11 11:26] LABS: Alanine Aminotransferase 22 U/L (0-41); Albumin Level 4.4 g/dL (3.5-5.2); Alkaline Phosphatase 98 IU/L (40-130); Anion Gap 13.9 (5-19); Aspartate Amino Transferase 26 U/L (0-40); Blood Urea Nitrogen 18 mg/dL (8-23); Calcium 9.9 mg/dL (8.5-10.5); Carbon Dioxide 30 mmol/L (22-29); Chloride 97 mmol/L (98-107); Globulin 3.2 g/dL (1.3-4.6); Glucose 123 mg/dL (65-115); NT Pro B Type Natriuretic Pept 1480 pg/mL (0-450); Osmolality Calculated 282 mOsm/kg (285-295); Potassium 3.9 mmol/L (3.5-5.1); Sodium 137 mmol/L (136-145); Total Bilirubin 0.9 mg/dL (0.15-1.2); Total Protein 7.6 g/dL (6.6-8.7)
[2020-03-11] MEDS: metoprolol tartrate 25 mg Tablet PO (11:44)
[2020-03-11] MEDS: metoprolol tartrate 1 mg/1 mL SDV 5 mL 5 MG IV (11:47)
--- NOTE | 2020-03-11 12:39 | ECG_ITS ---
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 Measurements Intervals [place] Rate: 84 P: [place]: -1 QRS: -62 QRSD: 161 T: 114 QT: 422 QTc: 501 Interpretive Statements ATRIAL FIBRILLATION LEFT AXIS DEVIATION [QRS AXIS < -30] LEFT BUNDLE BRANCH BLOCK [120+ ms QRS DURATION, 80+ ms Q/S IN V1/V2, 85+ ms R IN I/aVL/V5/V6] Compared to ECG 02/07/2020 14:31:31 Left-axis deviation now present Left bundle-branch block now present Sinus bradycardia no longer present Right-axis deviation no longer present Intraventricular conduction delay no longer present Electronically Signed On 03-11-2020 16:32:01 CDT by Wes Cruz M.D. [email or web address] [email or web address].[employer]/store/[id number]
== END 2020-03-11 14:49 | disposition home or self-care (01) ==
PROVIDERS: Emergency Provider Family Medicine; PCP Family Medicine
DX: I48.91 Unspecified atrial fibrillation (principal); J44.9 Chronic obstructive pulmonary disease, unspecified; I10 Essential (primary) hypertension; I25.10 Atherosclerotic heart disease of native coronary artery without angina pectoris; Z79.82 Long term (current) use of aspirin; Z79.01 Long term (current) use of anticoagulants; F17.210 Nicotine dependence, cigarettes, uncomplicated
CPT/HCPCS: 12345; 36415; 71045; 80053; 81003; 83880; 84484; 85025; 93005; 96374; 96375; 99284; J3490

== ENCOUNTER → 2020-09-01 15:36 | Outpatient (BNVA) | payer MEDICARE, OTHER, SELFPAY | PROVIDERS: PCP Family Medicine; Referring Provider Family Medicine; Visit Provider Specialist | DX: M17.0 Bilateral primary osteoarthritis of knee (principal); M25.561 Pain in right knee; M25.562 Pain in left knee | CPT/HCPCS: 73560; 73565 ==

== ENCOUNTER → 2020-09-22 | Day surgery (SDC) | payer MEDICARE, OTHER, SELFPAY | PROVIDERS: PCP Family Medicine; Visit Provider Specialist | DX: M17.11 Unilateral primary osteoarthritis, right knee (principal); Z01.818 Encounter for other preprocedural examination | CPT/HCPCS: 93005 ==

== ENCOUNTER → 2020-09-25 10:57 | Outpatient (BNVA) | payer MEDICARE, SELFPAY | PROVIDERS: PCP Family Medicine; Visit Provider Specialist | DX: Z01.812 Encounter for preprocedural laboratory examination (principal); M17.11 Unilateral primary osteoarthritis, right knee | CPT/HCPCS: 87635 ==

== ENCOUNTER 2020-09-30 09:29 | Observation (INO) | payer MEDICARE, OTHER, SELFPAY ==
[2020-09-22 10:21] VITALS: BMI 32.5
--- NOTE | 2020-09-22 10:33 | ECG_ITS ---
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 Measurements Intervals [place] Rate: 63 P: [place]: QRS: 80 QRSD: 153 T: 180 QT: 412 QTc: 424 Interpretive Statements ATRIAL FIBRILLATION LEFT BUNDLE BRANCH BLOCK Compared to ECG 03/11/2020 12:45:23 NO SIGNIFICANT CHANGES Electronically Signed On 09-22-2020 17:11:07 MARINE ENGINEER CPVEC by Tristin Chapman M.D. [email or web address] [email or web address] general hospitalViridis Energy/store/[id number]
--- NOTE | 2020-09-22 10:50 | ANES.PREANE2 ---
Pre-Anesthetic Assessment Pre-Anesthetic Assessment: Height/Weight: Height 1.78 m Weight 102.965 kg Preop Diagnosis: Knee pain Proposed Procedure: Operation Date: 09/30/20 07:00 Proposed Procedures p Right Total Knee Arthroplasty 86720 M17.10(Right) - Brandee Massey MD Familial anesthetic complications: None Was Beta Rebecca taken within 24 hours: N/A Social: Social History: Tobacco and No alcohol Exam: Pre-Anes Outpt Exam: alert, oriented x 3, clear to auscultation bilaterally and regular rate & rhythm Airway: Cervical ROM: WNL MP: 3 Dentition: Other (missing teeth) Additional comments: poor dentiltion Pulmonary: Pulmonary: COPD (on oxygen 2 L NC prn) CV/HEM: CV/HEM: Afib (on eliquis), CHF and HTN Comments: s/p cabg and AVR - unsure of year AAA Denies chest pains Metabolic: Metabolic: Hyperlipidemia Anesthetic Plan: ASA status: 4 Anesthesia: Regional (specify below) Other: Spinal vs General + adductor canal Risk of > 500 ml blood loss (7ml/kg in children): No Other Pertinent Information: 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 He stated that Dr Massey's office called and got clearance for surger from his cardiology office by phone. He sees RAGHAV Golden at [facility] Anesthesia PFSH: Medical History Abdominal aortic aneurysm (AAA) Anticoagulation adequate BPH loc w urin obs/LUTS Metabolic alkalosis Respiratory failure with hypoxia Sinus pause Tobacco abuse Transaminitis Family History Brother Cancer Sister Cancer Mother Diabetes Other CAD (coronary artery disease) Social History Smoking and tobacco status: current every day smoker Quit status (tobacco): considering quitting Second hand smoke exposure: Yes Smoking risk assessment/counseling performed?: Yes Alcohol intake: former Adopted: No Caregiver/support person: No Lives independently: Yes Marital status: / Current occupational status: retired Data Anesthesia CBC & Chem 7: 09/22/20 10:45 09/22/20 10:45 Cardiac Studies: No Data to Display
[2020-09-22 10:53] LABS: Basophils % 0.6 %; Eosinophils # 0.2 10^3/uL (0.0-0.8); Eosinophils % 2.6 %; Hematocrit 39.4 % (42.0-52.0); Hemoglobin 12.1 g/dL (11.7-16.6); Lymphocytes % 15.3 %; Mean Corpuscular HGB Conc 30.7 g/dL (30.0-36.0); Mean Corpuscular Hemoglobin 24.6 pg (28.0-34.0); Mean Corpuscular Volume 80.2 fL (80-94); Mean Platelet Volume 10.3 fL (7.4-10.4); Monocytes # 0.6 10^3/uL (0.2-0.9); Monocytes % 8.6 %; Neutrophils % 72.6 %; Nucleated Red Blood Cells % 0 %; Platelet Count 156 10^3/cmm (130-400); Red Blood Count 4.91 10^6/uL (4.1-5.3); Red Cell Distribution Width 16.1 % (12.1-15.1); White Blood Count 6.6 10^3/uL (4.0-10.0)
[2020-09-22 11:42] LABS: Anion Gap 13.1 (5-19); Blood Urea Nitrogen 19 mg/dL (8-23); Calcium 9.2 mg/dL (8.5-10.5); Carbon Dioxide 26 mmol/L (22-29); Chloride 102 mmol/L (98-107); Glucose 123 mg/dL (65-115); Osmolality Calculated 288 mOsm/kg (285-295); Potassium 4.1 mmol/L (3.5-5.1); Sodium 137 mmol/L (136-145)
[2020-09-30] VITALS (18 sets, daily range): BP systolic 97–160; BP diastolic 58–87; PULSE 54–91; RESP 13–20; TEMP 35.8–37; O2SAT 94–99
[2020-09-30] MEDS: CELEcoxib 200 mg Capsule 400 MG PO (06:00)
[2020-09-30] MEDS: sodium chloride 0.9% 1,000 ML 30 ML IV (06:14)
[2020-09-30 06:24] LABS: Basophils % 0.3 %; Eosinophils # 0.2 10^3/uL (0.0-0.8); Eosinophils % 3.7 %; Hematocrit 39.6 % (42.0-52.0); Hemoglobin 12.3 g/dL (11.7-16.6); Lymphocytes # 1.2 10^3/uL (0.8-4.8); Lymphocytes % 20.4 %; Mean Corpuscular HGB Conc 31.1 g/dL (30.0-36.0); Mean Corpuscular Hemoglobin 24.6 pg (28.0-34.0); Mean Platelet Volume 10.9 fL (7.4-10.4); Monocytes # 0.7 10^3/uL (0.2-0.9); Monocytes % 11.7 %; Neutrophils # 3.66 10^3/uL (1.8-7.7); Neutrophils % 63.7 %; Nucleated Red Blood Cells % 0 %; Platelet Count 178 10^3/cmm (130-400); Red Blood Count 5.01 10^6/uL (4.1-5.3); Red Cell Distribution Width 15.9 % (12.1-15.1); White Blood Count 5.7 10^3/uL (4.0-10.0)
[2020-09-30] MEDS: vancomycin 1,000 MG in sodium chloride 0.9% 250 ML 250 MG IV (06:38)
--- NOTE | 2020-09-30 06:48 | ANES.PAUD2 ---
Pre-Anesthetic Update Pre-Anesthetic Assessment: Date of Surgery/Procedure: 09/30/20 Preop Diagnosis: Right knee degenerative osteoarthritis Proposed Procedure: Operation Date: 09/30/20 07:00 Proposed Procedures p Right Total Knee Arthroplasty 85264 M17.10(Right) - Brandee Massey MD Any changes to Pre-Anesthetic Assessment?: No Last Intake: Intake Last Liquid Date 09/29/20 Last Liquid Time 21:00 Last Solid Date 09/29/20 Last Solid Time 16:30 Labs Last 48hrs: Laboratory Results - last 48 hr 09/30/20 06:05 WBC 5.7 RBC 5.01 Hgb 12.3 Hct 39.6 L MCV 79.0 L MCH 24.6 L MCHC 31.1 RDW 15.9 H Plt Count 178 MPV 10.9 H Neut % (Auto) 63.7 Lymph % (Auto) 20.4 [place] % (Auto) 11.7 Eos % (Auto) 3.7 Baso % (Auto) 0.3 Neut # (Auto) 3.66 Lymph # (Auto) 1.2 [place] # (Auto) 0.7 Eos # (Auto) 0.2 Baso # (Auto) 0.0 Nucleated RBC % (a uto) 0 Nucleated RBCs # 0.0 Vitals: Temperature 97.6 F 09/30/20 06:31 Temperature Source Temporal Artery S can 09/30/20 06:31 Pulse Rate 79 09/30/20 06:31 Respiratory Rate 20 H 09/30/20 06:31 Blood Pressure 160/87 09/30/20 06:31 Blood Pressure Ela n 111 09/30/20 06:31 Pulse Oximetry 95 09/30/20 06:31 Oxygen Delivery Me thod 09/30/20 06:31 Exam: Pre-Anes Outpt Exam: alert, oriented x 3, clear to auscultation bilaterally and regular rate & rhythm Cardiac Studies: No Data to Display
--- NOTE | 2020-09-30 06:52 | W.PM.OPSUD ---
Surgery/Procedure H&P Update DATE OF PROCEDURE: September 30, 2020 DATE H&P PERFORMED: 09/01/20 H&P UPDATE INFORMATION: I have reviewed H&P completed within last 30 days, I have examined patient prior to procedure, No changes to prior documentation and H&P is in [facility] EMR on date indicated PREOP DIAGNOSIS: Right knee degenerative osteoarthritis PLANNED PROCEDURE: Operation Date: 09/30/20 07:00 Proposed Procedures p Right Total Knee Arthroplasty 34351 M17.10(Right) - Brandee Massey MD Related Problem List Diagnoses (1) Primary osteoarthritis of right knee:
[2020-09-30 07:00] LABS: Alanine Aminotransferase 17 U/L (0-41); Alkaline Phosphatase 88 IU/L (40-130); Anion Gap 14.7 (5-19); Aspartate Amino Transferase 17 U/L (0-40); Blood Urea Nitrogen 19 mg/dL (8-23); Calcium 9.4 mg/dL (8.5-10.5); Carbon Dioxide 23 mmol/L (22-29); Chloride 106 mmol/L (98-107); Globulin 3.2 g/dL (1.3-4.6); Glucose 126 mg/dL (65-115); Osmolality Calculated 292 mOsm/kg (285-295); Potassium 4.7 mmol/L (3.5-5.1); Sodium 139 mmol/L (136-145); Total Bilirubin 0.6 mg/dL (0.15-1.2); Total Protein 7.2 g/dL (6.6-8.7)
--- NOTE | 2020-09-30 07:52 | ANES.PROC ---
Anesthesia Procedures Procedure/Date: 09/30/20 Nerve Block ^: Nerve Block 1: Main Anesthesia: spinal anesthesia block Time Out Performed: Yes Consent: requested by attending/covering physician, risks and benefits reviewed and patient agrees to proceed Nerve block location: adductor canal (right) Anesthesia monitors applied: pulse oximetry, EKG, BP cuff and oxygen Nerve block position: supine Anesthetic Used: ropivicaine 0.5% Amount of anesthesia used (mL): 20 Ultrasound used to: recognize landmarks Nerve Stimulator Used?: No Interscalene/Femoral BLK: 4 stimuplex 21 g needle used for position and inplane approach Injection: neg aspiration of heme Patient Tolerated Procedure: well Complications: none
[2020-09-30] MEDS: vancomycin 1,000 MG SDV 1000 MG XX (07:59)
[2020-09-30] MEDS: ceFAZolin 1,000 mg SDV 2000 MG IRRIGATION (08:01)
--- NOTE | 2020-09-30 10:07 | XRR_ITS ---
PROCEDURE INFORMATION: Exam: XR Right Knee Exam date and time: 09/30/2020 10:15 AM Age: 74 years old Clinical indication: Device placement; Joint replacement hardware; Prior surgery; Surgery date: Post-operative (0-2 days); Additional info: S/P tka TECHNIQUE: Imaging protocol: XR Right knee. Views: 1 or 2 views. COMPARISON: CR (LOW EXM, ) 09/01/2020 3:43 PM FINDINGS: Bones/joints: The patient has undergone recent insertion of a total knee prosthesis. Gas is present in the joint from the recent surgery. No fracture is seen. Position appears satisfactory. Soft tissues: Normal. XR/XR knee RT 1-2V 43389 IMPRESSION: Satisfactory appearance of the total knee prosthesis.
--- NOTE | 2020-09-30 10:14 | SUR.PHASEI ---
PT TO PACU SLEEPY WITH GOOD RESP NOTED PT ON RA MONITOR A FIB WITH LT BBB, RYTH IRREGULAR BUT NO PVCS NOTED. SPINAL AT T-10 LEVEL, RT KNEE DRESSING D/I FIRST ICE TO SITE DISTAL FOOT PINK AND WARM , CAP REFILL LESS THAN 3 SECONDS. BILAT FOOT PUMPS ON. X RAY DONE
--- NOTE | 2020-09-30 10:20 | P.OP_ITS ---
Operative Report Date of procedure: September 30, 2020 Pre-op Diagnosis: Right knee degenerative osteoarthritis Post-op diagnosis: same Post-op Findings: Severe degenerative osteoarthritis right knee with slight flexion contracture and large osteophytes Procedure Done: Right total knee arthroplasty Implants: The [employer] total knee system with a size triathlon beaded posterior stabilized femur right, a triathlon titanium tibial component size 6 beaded, a triathlon X3 posterior stabilized tibial bearing insert size 6 X 11 mm and a beaded triathlon titanium asymmetric patella size 35 x 10 mm Specimens removed/disposition: Bone, disposed of Pathology: none sent Surgeon: Brandee Massey Hydroelectric Machinery Mechanic Helper: [facility] OR technicians Anesthesia: MAC (With spinal, ASA 4) Estimated blood loss (mL): 20 Tourniquet time (min): 103 Tourniquet time: At 250 mmHg IV fluids (mL): 700 Urine output (mL): 150 Complications: None Findings: Severe degenerative osteoarthritis with slight flexion contracture and medial bone loss. Cystic changes within the tibia. Condition: stable Disposition: PACU (Then to floor for postoperative pain management and rehabilitation as well as medical monitoring) Brief History: This 74-year-old man presented with complaints of severe right knee pain. He was unable to perform activities of daily living comfortably. He was unresponsive to conservative measures and wished to proceed with right total knee arthroplasty. Risks and complications were discussed with him and heis family. Consents were signed preoperatively and questions were answered. The patient wished to proceed understanding the above. Procedure: The patient was brought to the operating theater, and after undergoing adequate spinal anesthesia supplemented with regional block and sedation, ASA 4, the rig ht lower extremity was prepped with Dura-Prep and draped in usual fashion following placement of a tourniquet high on the leg. The leg was then draped free. Following prepping and draping, the leg was exsanguinated, and the tourniquet was elevated to 250 mm Hg for a total tourniquet time of 103 minutes. Prior to elevation of the tourniquet, but following exposure of the site of surgery, a surgical pause was performed. At the time of the surgical pause, we confirmed the site and side of surgery. Additionally, we confirmed the appropriate and timely administration of preoperative antibiotics, Ancef 2 g. and Transexemic acid 1 g. The availability of equipment was confirmed, and the patient's identity was verbalized as well. Following the surgical pause, an incision was made centering over the patella continuing proximally and distally as necessary to allow access to the knee joint. Dissection continued through skin and soft tissues using a scalpel. Hemostasis was obtained using electrocautery. The skin incision was followed by a median parapatellar arthrotomy. The leg was extended and the patella was everted. Following this, the leg was returned to flexed position. The distal femur was exposed and a drill hole was made in this for placement of the distal femoral jig. The distal femoral jig was set at 5? of valgus. The distal femoral cutting block was then placed in appropriate position, and an alfred wing was used to confirm an appropriate amount of distal femur would be resected. The distal femoral resection was accomplished with 10 mm of bone being resected distally secondary to the patient's preoperative flexion contracture. After the distal femoral resection had been accomplished, the femur was measured and it measured a size 6. Medial lateral dimension also measured a size 6. A size 6 femoral cutting block was placed in position, and we were then able to accomplish the anterior, posterior and chamfer cuts. This jig was then removed and the notch guide was placed in position. With the notch guide in appropriate position, the notch was excised including resection of the anterior and posterior cruciate ligaments. This notch was to allow for the posterior st abilized femoral component. At this point, the femur was prepared and attention was directed to the proximal tibia. The posterior knee retractor was placed along with medial and lateral retractors. Further resection of the menisci was accomplished as we had better visualization. A complete meniscectomy was performed both medially and laterally with care being taken to protect the popliteus. Retractors were then placed so that the proximal tibia was well visualized. A drill hole was then made in the tibia for placement of the intramedullary guide. This guide was placed so that approximately 2 mm of bone would be resected from the deficient medial tibial plateau. The intramedullary guide was utilized supplemented with an extramedullary guide to assure appropriate alignment for the proximal tibial resection. The proximal tibial jig was then evaluated, pinned in position, and the proximal tibial resection was accomplished without difficulty. The jig was removed, and the proximal tibia was measured. It measured a size 6. We then attempted a trial reduction with a size 6 by 11 mm insert. A small medial release was required. Osteophytes were also removed from the posterior tibia and femur. The femoral component was placed in position for the trial reduction, and the knee was placed through range of motion. With this, there was excellent stability with excellent varus-valgus alignment with appropriate patellar tracking. Extension was noted to be full as well. This was felt to be the appropriate size insert. There was full extension and flexion without lift off and the rotation of the tibia was marked. Alignment was checked from the hip to the ankle, and this was noted to be appropriate as well. Attention was then directed to the patella. The patella was measured with a caliper. We resected sufficient patella to leave approximately 14 mm of patella remaining. Measurements of the patella then indicated that a size asymmetric 35 mm x 10 mm was the appropriate patellar size. We then placed the jig to drill for the 3 pegs of the press-fit patella, and these drill holes were made without incident. A trial patella was then placed, and the knee was placed through range of motion. The patella was noted to track nicely without evidence of subluxation. The femur was prepared for a press-fit femur by drilling 2 holes for the femoral pegs. All trial components were subsequently removed. The tibial tray was then pinned into position, and we broached the tibia for the stem of the tibial component. Subsequently, 4 drill holes were made for placement of the press-fit tibia. This was accomplished without difficulty. Care was taken to assure appropriate rotation of the tibia as well as appropriate position on the proximal tibia. The tibial tray was completely se ated on the proximal tibia. Following broaching, the tibial guide was removed, and all surfaces were copiously irrigated. The surfaces were then dried and a bone plug was placed into the distal femur. Exparel was also injected at this point. The Tritanium tibia was impacted into position. The beaded femur was then impacted into position in a cementless fashion. The tibial insert was placed. The patella was pressed into position with a patellar clamp. The knee was irrigated with 20 mL of Betadine and 500 mL of normal saline, and this was allowed to remain in the knee for 3-4 minutes. The knee was then copiously irrigated and suctioned dry. Attention was then directed to closure. Closure was accomplished with 0 Vicryl in the fascial tissues. Following this, a 2-0 Monocryl was used in the subcutaneous tissues, and the skin was closed with skin mickie. A sterile dressing was then placed consisting of Exofin, telfa, 4x4's, ABD, sterile soft roll, and an Shaheed wrap. The patient was returned the Recovery Room in a satisfactory condition. X-rays were obtained there. The patient will be discharged to the floor for postoperative rehabilitation and pain management. Associated Problem List Diagnoses (1) Primary osteoarthritis of right knee:
--- NOTE | 2020-09-30 10:27 | P.PCN_ITS ---
PACU note PACU note: VSS, Good respiratory effort, report to MANAGER DENTAL Post-Anesthesia Exam: awake
--- NOTE | 2020-09-30 10:27 | PM.PACU ---
PACU note PACU note: VSS, Good respiratory effort, report to PAINTING SUPERVISOR Post-Anesthesia Exam: awake
[2020-09-30] MEDS: chlorhexidine gluconate 0.12% Btl 473 mL 30 ML MUCOUS MEM ×3 (13:31→20:22)
[2020-09-30] MEDS: sodium chloride 0.9% 1,000 ML 100 ML IV ×2 (13:32→23:42)
[2020-09-30] MEDS: dilTIAZem 60 mg Tablet PO ×2 (14:39→20:22)
[2020-09-30] MEDS: HYDROcodone-acetaminophen 5-325 mg Tablet 1 TAB PO ×2 (14:39→20:22)
--- NOTE | 2020-09-30 16:40 | ANE.PACU2 ---
Inpatient post-anesthesia follow up: Airway intact: Yes Vital signs: Temperature 97.2 F Pulse Rate 60 Respiratory Rate 17 Blood Pressure 109/64 Pulse Oximetry 95 Oxygen Delivery Me thod Room Air Oxygen Flow Rate Fraction of Inspir ed Oxygen Hydration adequate: Yes Nausea and vomiting: No Pain level: 1 Mental status: Baseline
[2020-09-30] MEDS: calcium carbonate 500 mg Chew Tablet 1000 MG PO (17:49)
[2020-09-30] MEDS: tamsulosin 0.4 mg Capsule PO (17:49)
[2020-09-30] MEDS: mupirocin oint 22 gm 1 APPLIC NASAL (17:49)
[2020-09-30] MEDS: CELEcoxib 200 mg Capsule PO (17:49)
[2020-09-30] MEDS: sennosides-docusate Tablet 2 TAB PO (17:49)
[2020-09-30] MEDS: iron polysaccharide complex 150 mg Capsule PO (17:49)
[2020-09-30] MEDS: potassium chloride ER 20 mEq Tablet PO (17:49)
[2020-09-30] MEDS: albuterol 8 gm MDI 1 PUFF INHALATION (21:26)
[2020-09-30] MEDS: apixaban 5 mg Tablet PO (23:34)
[2020-09-30 23:46] LABS: Add Urine Microscopic? NO
[2020-09-30 23:52] LABS: Bilirubin Urine Neg (Negative); Blood Urine Neg (Negative); Glucose Urine UA Norm (Normal); Ketones Urine Negative (Negative); Leukocyte Esterase Urine Negative (Negative); Nitrate Urine Negative (Negative); Protein Urine Neg (Negative); Specific Gravity, Urine 1.015 (1.005-1.030); Urine Appearance Clear (CLEAR); Urine Color Yellow (Yellow); Urobilinogen Urine Norm (Negative); pH Urine 6.5 (5-7)
[2020-10-01] VITALS (8 sets, daily range): BP systolic 124–162; BP diastolic 68–76; PULSE 65–82; RESP 14–20; TEMP 36.8–37; O2SAT 95–97
[2020-10-01 03:11] LABS: Basophils % 0.1 %; Eosinophils # 0.2 10^3/uL (0.0-0.8); Eosinophils % 1.7 %; Hematocrit 36.2 % (42.0-52.0); Mean Corpuscular HGB Conc 30.4 g/dL (30.0-36.0); Mean Corpuscular Hemoglobin 24.7 pg (28.0-34.0); Mean Corpuscular Volume 81.3 fL (80-94); Mean Platelet Volume 10.4 fL (7.4-10.4); Monocytes # 0.9 10^3/uL (0.2-0.9); Monocytes % 10.4 %; Neutrophils # 6.62 10^3/uL (1.8-7.7); Neutrophils % 76.5 %; Nucleated Red Blood Cells % 0 %; Platelet Count 150 10^3/cmm (130-400); Red Blood Count 4.45 10^6/uL (4.1-5.3); Red Cell Distribution Width 16.1 % (12.1-15.1); White Blood Count 8.7 10^3/uL (4.0-10.0)
[2020-10-01 03:13] LABS: Anion Gap 9.7 (5-19); Blood Urea Nitrogen 19 mg/dL (8-23); Calcium 8.7 mg/dL (8.5-10.5); Carbon Dioxide 24 mmol/L (22-29); Chloride 108 mmol/L (98-107); Glucose 131 mg/dL (65-115); Osmolality Calculated 288 mOsm/kg (285-295); Potassium 4.7 mmol/L (3.5-5.1); Sodium 137 mmol/L (136-145)
--- NOTE | 2020-10-01 04:04 | PC.NURSE ---
SHIFT ASSESSMENT: PATIENT DID WELL THROUGHOUT THE SHIFT. MINIMAL COMPLAINTS OF PAIN. DENIES ANY NAUSEA OR VOMITING. GOOD PALPABLE PEDAL PULSES BILATERAL AND POPLITEAL PULSE ON RIGHT SIDE. ICE CHANGED OUT EVERY 2 HOURS. GOOD URINE OUTPUT WELL.
[2020-10-01] MEDS: HYDROcodone-acetaminophen 5-325 mg Tablet 1 TAB PO (04:30)
[2020-10-01] MEDS: CELEcoxib 200 mg Capsule PO (06:45)
[2020-10-01] MEDS: vancomycin 1,000 MG in sodium chloride 0.9% 250 ML 250 MG IV (06:51)
[2020-10-01] MEDS: spironolactone 25 mg Tablet 12.5 MG PO (08:08)
[2020-10-01] MEDS: potassium chloride ER 20 mEq Tablet PO (08:08)
[2020-10-01] MEDS: atorvastatin 40 mg Tablet PO (08:08)
[2020-10-01] MEDS: cyanocobalamin 1,000 mcg Tablet 1000 MCG PO (08:08)
[2020-10-01] MEDS: fluoxetine 20 mg Capsule PO (08:08)
[2020-10-01] MEDS: cholecalciferol (vitamin D3) 1,000 unit Tablet 1000 UNIT PO (08:08)
[2020-10-01] MEDS: dilTIAZem 60 mg Tablet PO ×2 (08:08→14:45)
[2020-10-01] MEDS: sennosides-docusate Tablet 2 TAB PO (08:09)
[2020-10-01] MEDS: tamsulosin 0.4 mg Capsule PO (08:09)
[2020-10-01] MEDS: losartan 50 mg Tablet 25 MG PO (08:09)
[2020-10-01] MEDS: multivitamin therapeutic Tablet 1 TAB PO (08:09)
[2020-10-01] MEDS: iron polysaccharide complex 150 mg Capsule PO (08:10)
[2020-10-01] MEDS: FUROsemide 40 mg Tablet 60 MG PO (08:10)
[2020-10-01] MEDS: apixaban 5 mg Tablet PO (08:10)
[2020-10-01] MEDS: albuterol 8 gm MDI 1 PUFF INHALATION (08:11)
--- NOTE | 2020-10-01 09:04 | PC.CHAP ---
Pastoral Care Encounter/Spiritual Assessment Type of Contact [] Declined paint maker visit [] Patient/Family/Request visit [] Outpatient visit [] Follow-up visit [] Physician referral [] Code/Alert [x Routine visit [] Staff referral [] Actively dying [] Patient sleeping [] Family support [] [] Out of room [] Palliative care [] [x] Receiving care in room [] Pre-surgical visit [] Trauma [] Long length of stay [] ICU visit [] Other: Relational/Emotional Strength [] Patient feels connected with others/family/visitors/staff [] Distress [] Loneliness/isolation [] Abandonment Spirituality of Patient [] Person of Megan [] Attends Baptism of their Megan [] Believes in Prayer [] Reads Bible or Yarsanism materials [] There are Spiritual issues to be addressed Geology Instructor Interventions [] Prayer [] Active listening [] Non-anxious presence [] Spiritual/emotional support [] Crisis/trauma care [] Spiritual counseling [] Bereavement support [] Provided bereavement packet [] Provided Bible/devotional materials [] Provided toy/stuffed animal, coloring book to patient or family member [] Provided Communion [] Anointing/[place] [] Salvation [] Completed spiritual assessment [] Other: Impact on Illness or Injury [] Angry [] Fearful [] Anxious [] Often cries [] Exhaustion [] Unable to work [] Unable to attend yazdanism [] Unable to walk/stand [] Unable to read [] Unable to drive [] Unable to eat/drink [] Unable to sleep [] Unable to be with family [] Patient intubated [] Other: Summary Time spent with patient
[2020-10-01] MEDS: mupirocin oint 22 gm 1 APPLIC NASAL (10:28)
[2020-10-01] MEDS: sodium chloride 0.9% 1,000 ML 100 ML IV (10:28)
[2020-10-01] MEDS: chlorhexidine gluconate 0.12% Btl 473 mL 30 ML MUCOUS MEM ×2 (10:28→14:41)
[2020-10-01] MEDS: oxyCODONE 5 mg IR Tab/Cap PO (11:21)
[2020-10-01] MEDS: calcium carbonate 500 mg Chew Tablet 1000 MG PO (11:22)
[2020-10-01] MEDS: acetaminophen 500 mg Tablet 1000 MG PO (14:41)
--- NOTE | 2020-10-01 15:10 | P.DS_ITS ---
Discharge Providers Date of Admission: 09/30/20 09:29 Date of Discharge: October 01, 2020 Attending Provider at Admission: Brandee Massey MD Attending Provider at Discharge: Brandee Massey MD Primary Care Provider: Дмитрий Santiago DO Diagnoses at Discharge Discharge Diagnosis (1) Primary osteoarthritis of right knee: Status: Resolved (2) Status post total right knee replacement: Status: Acute Permanent problem details: Right total knee arthroplasty utilizing the [employer] total knee system with a size 6 triathlon beaded posterior stabilized femur right, a triathlon titanium tibial component size 6 beaded, a triathlon X3 posterior stabilized tibial bearing insert size 6 X 11 mm and a beaded triathlon titanium asymmetric patella size 35 x 10 mm Reason for Visit Reason for Visit: osteoarthritis Hospital Course Hospital Course This 74-year-old gentleman was admitted for same-day surgery. He underwent surgery in the form of a right total knee arthroplasty. This was accomplished uneventfully and the patient was brought to the hospital under observation status following his total knee. On the first postoperative day, he worked with physical therapy. He was considered safe for discharge to home. His pain was well managed. His wound was benign. There was no evidence of DVT. The patient had an uneventful postoperative course. He was discharged to home with home health on the day following surgery. Questions were answered. Physical Exam Narrative: EXAM NARRATIVE: Patient had right total knee arthroplasty, and he was admitted for overnight observation. Today, the dressing was removed. His wound is benign. There is no drainage. There is no evidence of infection. The calf is soft and nontender and he remains neurologically intact. No complications are noted. There is no evidence of DVT. Const: COMMON NORMALS: no acute distress, patient oriented x3 and alert GENERAL APPEARANCE: cooperative and comfortable ORIENTATION/CONSCIOUSNESS: Yes awake HENMT: COMMON NORMALS: normocephalic and atraumatic HEAD & SCALP: normocephalic and atraumatic Eye: GENERAL EYE: appearance normal, both eyes and all related structures Chest: COMMONS NORMALS: normal inspection of the chest Resp: COMMON NORMALS: normal respiratory effort EFFORT & INSPECTION: Yes able to speak in complete sentences and Yes symmetric chest movement Extremity: RIGHT LOWER EXTREMITY: Yes knee joint (Status post right total knee arthroplasty.) Neuro: COMMON NORMALS: patient oriented x3 SENSORIUM/ORIENTATION: Yes alert Psych: COMMON NORMALS: mental status grossly normal APPEARANCE: Yes grossly normal ATTITUDE: Yes calm and Yes engaged ATTENTION/CONCENTRATION: Yes attention grossly intact Skin: COMMON NORMALS: no rashes or lesions noted GENERAL SKIN EXAM: no rashes or lesions noted Urinary Catheter Management^: F: Cath Placed During This Visit: yes, but has since been removed by the nurse Reason for Continuing Indwelling Catheter: Decision to DC Catheter Urinary Catheter Date of Insertion: 09/30/20 Urinary Catheter Time of Insertion: 07:30 Date Urinary Catheter Removed: 10/01/20 Time Urinary Catheter Discontinued: 04:35 Discharge Data Data Completed and Pending: Completed Studies During Hospitalization Category Date Time Status XR knee RT 1-2V 7 3560 Urgent Exams 09/30/20 10:07 Completed Pending at discharge Category Date Time Status Complete Blood Co unt w/Auto AM LABS Lab 10/02/20 04:00 Ordered Complete Blood Co unt w/Auto AM LABS Lab 10/03/20 04:00 Ordered Urine Culture Rou zandra Lab 09/30/20 05:53 Results Labs from last 24 hours 10/01/20 10/01/20 09/30/20 02:35 02:35 05:53 WBC 8.7 RBC 4.45 Hgb 11.0 L Hct 36.2 L MCV 81.3 MCH 24.7 L MCHC 30.4 RDW 16.1 H Plt Count 150 MPV 10.4 Neut % (Auto) 76.5 Lymph % (Auto) 11.0 [place] % (Auto) 10.4 Eos % (Auto) 1.7 Baso % (Auto) 0.1 Neut # (Auto) 6.62 Lymph # (Auto) 1.0 [place] # (Auto) 0.9 Eos # (Auto) 0.2 Baso # (Auto) 0.0 Nucleated RBC % (a uto) 0 Nucleated RBCs # 0.0 Sodium 137 Potassium 4.7 Chloride 108 H Carbon Dioxide 24 Anion Gap 9.7 BUN 19 Creatinine 0.9 GFR Calculation Not Reportable Glucose 131 H Calculated Osmolal ity 288 Calcium 8.7 Urine Color Yellow Urine Appearance Clear Urine pH 6.5 Ur Specific Gravit y 1.015 Urine Protein Neg Urine Glucose (UA) Norm Urine Ketones Negative Urine Blood Neg Urine Nitrate Negative Urine Bilirubin Neg Urine Urobilinogen Norm Ur Leukocyte Judith ase Negative Vitals: Last Vital Signs Temp 98.4 F 10/01/20 04:28 Pulse 82 10/01/20 08:20 Resp 18 10/01/20 11:21 BP 148/76 10/01/20 08:09 Pulse Ox 97 10/01/20 08:12 Discharge Plan Discharge Patient Disposition: Home Health Service Condition: Stable Prescriptions: New celecoxib 200 mg Capsule 200 mg PO Q12H 30 Days Qty: 60 RF: 0 oxycodone 5 mg Tablet 5 mg PO Q4H PRN (Reason: Moderate Pain) Qty: 40 RF: 0 Continued fluoxetine 20 mg capsule 20 mg PO DAILY RF: 0 tamsulosin [Flomax] 0.4 mg capsule 0.4 mg PO BID 30 Days Qty: 180 RF: 3 albuterol sulfate 90 mcg/actuation HFA aerosol inhaler 1 puff INHALATION Q4H PRN (Reason: Shortness Of Breath) RF: 0 fluticasone propion-salmeterol [Advair Diskus] 100-50 mcg/dose blister with device 1 inh INHALATION BID Qty: 14 RF: 0 atorvastatin [Lipitor] 40 mg Tablet 40 mg PO DAILY 30 Days Qty: 0 RF: 0 cyanocobalamin (vitamin B-12) [Vitamin B-12] 1,000 mcg Tablet 1,000 mcg PO DAILY RF: 0 spironolactone 25 mg tablet 12.5 mg PO DAILY RF: 0 losartan 25 mg Tablet 25 mg PO DAILY RF: 0 lorazepam 1 mg Tablet 1 mg PO DAILY PRN (Reason: Anxiety) RF: 0 diltiazem HCl 60 mg Tablet 60 mg PO TID RF: 0 potassium chloride 20 mEq tablet extended release 20 meq PO BID RF: 0 fluticasone propionate 50 mcg/actuation spray,suspension 1 spray INTRANASAL BID PRN (Reason: Allergy Symptoms) RF: 0 (DME) oxygen-air delivery systems RF: 0 nitroglycerin [Nitrostat] 0.4 mg Tablet, Sublingual 0.4 mg SUBLINGUAL Q5M PRN (Reason: Chest Pain) RF: 0 Eliquis 5 mg tablet 5 mg PO BID RF: 0 furosemide [Lasix] 40 mg tablet 60 mg PO DAILY RF: 0 albuterol sulfate 2.5 mg /3 mL (0.083 %) Solution For Nebulization 2.5 mg INHALATION QID PRN (Reason: Shortness Of Breath) RF: 0 Held aspirin 81 mg Tablet,Chewable 1 tab PO DAILY 30 Days Qty: 0 RF: 0 Hold Instructions: Resume on 10/29/20. hydrocodone-acetaminophen 5-325 mg Tablet 1 tab PO Q4H PRN (Reason: Pain) RF: 0 Hold Instructions: Resume on 10/09/20. Discharge Orders: Discharge Order (Routine); Ordered 10/01/20 Ordered By: Brandee Massey Referrals: [facility] [Outside] Brandee Massey MD [Physician] - 10/13/20 11:30 am Discharge Diet: Advance as tolerated, Usual diet and Cardiac Discharge Activity: Increase activity as tolerated, Limit activity as instructed, Use walker/crutches as instructed and As per PT/OT instructions Patient Instructions: Oxycodone, Rapid Release (By mouth), Celecoxib (By mouth), Total Knee Replacement (DC) Activity Restrictions/Additional Instructions: Gait training and ambulation per PT. Strengthening and range of motion. Ice and elevation to right lower extremity Discharge Attestations Time Spent in Discharge Care*: greater than 30 min Specific Discharge Activities: educating patient, documenting/other paperwork and evaluating patient/reviewing data Quality Metrics Clinical Quality Measures During this hospital stay, did patient experience: None Coding Level of Care Code Acute Heeler Machine for Karen Fwd Diagnoses Primary osteoarthritis of right knee M17.11 Status post total right knee replacement Z96.651
== END 2020-10-01 15:55 | disposition home health service (06) ==
LOC: MEDSURG 09:29
PROVIDERS: Anesthesiology; Admitting Provider Specialist; PCP Family Medicine; Visit Provider Specialist
PROC: (CPT 27447; principal; 2020-09-30 07:00)
DX: M17.11 Unilateral primary osteoarthritis, right knee (principal); F17.210 Nicotine dependence, cigarettes, uncomplicated; J44.9 Chronic obstructive pulmonary disease, unspecified; Z99.81 Dependence on supplemental oxygen; I48.91 Unspecified atrial fibrillation; Z79.01 Long term (current) use of anticoagulants; I11.0 Hypertensive heart disease with heart failure; I50.9 Heart failure, unspecified; Z95.1 Presence of aortocoronary bypass graft; E78.5 Hyperlipidemia, unspecified; N40.1 Benign prostatic hyperplasia with lower urinary tract symptoms; N13.8 Other obstructive and reflux uropathy
CPT/HCPCS: 27447; 12345; 36415; 51702; 64447; 73560; 80048; 80053; 81003; 85025; 87086; 94640; 96361; 96365; 96375; 97110; 97116; 97161; 97166; 97530; 97535; C1776; C9290; G0378; J0131; J0690; J2250; J2370; J2704; J2795; J3010; J3370; J3490; J3535; J7030; J7050

== ENCOUNTER → 2020-10-13 11:45 | Outpatient (BNVA) | payer MEDICARE, OTHER, SELFPAY | PROVIDERS: PCP Family Medicine; Visit Provider Specialist | DX: M17.11 Unilateral primary osteoarthritis, right knee (principal); Z96.651 Presence of right artificial knee joint | CPT/HCPCS: 73560; 73565 ==

== ENCOUNTER 2020-10-15 13:54 | Emergency (ER) | payer MEDICARE, OTHER, SELFPAY ==
--- NOTE | 2020-10-15 14:01 | USCV_ITS ---
Dakota Mercado Age: 74 Gender: M : 1945 Exam Date: 10/15/2020 15:07 Ordering Phys: Josh Chao DO Technologist: Giacomo Gutierrez [place] [facility] [place] Indication: POST OP KNEE SURG PROCEDURES: Venous duplex imaging was performed in only the right lower extremity. The following venous structures were evaluated: common femoral vein, profunda vein, proximal portion of the greater saphenous vein, superficial femoral vein, and the popliteal vein. In addition, the posterior tibial and peroneal trunk were evaluated. Serial compression, augmentation maneuvers, and spectral Doppler flow evaluation were performed. FINDINGS: Normal 2-D Doppler and augmentation and compressibility throughout the lower extremity venous structures. Additional imaging through the proximal calf veins also reveals no thrombus. Limited evaluation of the greater saphenous vein is patent with no thrombus.. CONCLUSIONS No evidence of right lower extremity DVT. Hernando Hsieh MD (Electronically Signed) Final Date: 15 October 2020 16:57 S
--- NOTE | 2020-10-15 14:02 | ED_ITS ---
HPI - General Adult General: Chief complaint: Extremity Problem,Nontraumatic Stated complaint: swelling in legs, recent knee surgery Time Seen by Provider: 10/15/20 14:00 History of Present Illness: HPI narrative: 74-year-old male presents emergency room claiming of leg pain. He had a right knee arthroplasty earlier this month and was discharged home on 10/01. Patient comes in today complaining of right knee swelling and a little bit of redness he says it is exquisitely tender to the touch. Describes it as red and warm he also has a bruise on the back of his knee. He has a history of atrial fibrillation and he is on Eliquis was restarted after his surgery and he continues to take it. Rest of his medication list reviewed also includes digoxin. Onset (ago): day(s) Location: right and lower extremity Severity: mild Quality: aching Pain Consistency: intermittent Relieving factors: none Exacerbating factors: none Associated symptoms: Deny chest pain, confusion, cough, diaphoresis, decreased appetite, dyspnea, fevers/chills, headache(s), malaise, nausea, rash, palpitations, seizures, short of breath, syncope, vomiting or weakness Treatments prior to arrival: none Review of Systems Const: Denies: malaise or diaphoresis ENMT: Denies: throat pain, ear or mastoid pain, nasal discharge or nasal congestion Card: Denies: chest pain, palpitations or syncope Resp: Denies: dyspnea GI: Denies: nausea or vomiting : Denies: flank pain, dysuria, urinary frequency or urinary urgency Skin/Breast: Denies: rash Neuro: Denies: headache(s) or confusion [facility] ED PFSH: Medical History Abdominal aortic aneurysm (AAA) Anticoagulation adequate BPH loc w urin obs/LUTS Metabolic alkalosis Respiratory failure with hypoxia Sinus pause Tobacco abuse Transaminitis Family History Brother Cancer Sister Cancer Mother Diabetes Other CAD (coronary artery disease) Social History Smoking and tobacco status: current every day smoker Quit status (tobacco): considering quitting Second hand smoke exposure: Yes Smoking risk assessment/counseling performed?: Yes Alcohol intake: former Adopted: No Caregiver/support person: No Lives independently: Yes Marital status: / Current occupational status: retired Physical Exam Const: COMMON NORMALS: no acute distress GENERAL APPEARANCE: cooperative and comfortable ORIENTATION/CONSCIOUSNESS: Yes awake, Yes oriented to person, Yes oriented to place and Yes oriented to time HENMT: COMMON NORMALS: normocephalic, atraumatic and hearing grossly normal bilaterally HEAD & SCALP: normocephalic and atraumatic Neck/C-Spine: COMMON NORMALS: no JVD Resp: COMMON NORMALS: normal respiratory effort, No retractions, No use of accessory muscles and clear to auscultation bilaterally AUSCULTATION: clear to auscultation bilaterally Cardio: COMMON NORMALS: no JVD, regular rate, regular rhythm and No murmurs present (Cardio) RATE: regular rate RHYTHM: regular rhythm GI: COMMON NORMALS: Soft to palpation and No hepatosplenomegaly present AUSCULTATION: Yes normoactive bowel sounds PALPATION: Yes Soft to palpation, No Tenderness to palpation present (GI), No Guarding due to palpation present (GI) and Yes No hepatosplenomegaly present Extremity: COMMON NORMALS: normal to inspection, capillary refill normal, no clubbing, cyanosis or edema, no calf tenderness and no pedal edema Neuro: SENSORIUM/ORIENTATION: Yes oriented to person, Yes oriented to place and Yes oriented to time Skin: COMMON NORMALS: no rashes or lesions noted GENERAL SKIN EXAM: no rashes or lesions noted Course Vital Signs: Vital signs: Vital Signs Temperature 98.2 F 10/15/20 14:04 Pulse Rate 75 10/15/20 18:15 Respiratory Rate 18 10/15/20 18:15 Blood Pressure 188/102 10/15/20 18:15 Pulse Oximetry 98 10/15/20 18:15 MDM - General Adult MDM Narrative: Medical decision making narrative: Will discharge home on oral oral antibiotics follow-up with primary care doctor within the next week return if is worsening or change of problem symptoms. Lab Data: Labs: Lab Results 10/15/20 10/15/20 10/15/20 Range/Units 14:54 14:54 14:54 WBC 7.4 (4.0-10.0) 10^3/ uL RBC 3.99 L (4.1-5.3) 10^6/u L Hgb 9.6 L (11.7-16.6) g/dL Hct 31.7 L (42.0-52.0) % MCV 79.4 L (80-94) fL MCH 24.1 L (28.0-34.0) pg MCHC 30.3 (30.0-36.0) g/dL RDW 17.0 H (12.1-15.1) % Plt Count 253 (130-400) 10^3/c mm MPV 10.2 (7.4-10.4) fL Neut % (Auto) 72.7 % Lymph % (Auto) 13.8 % Woodward % (Auto) 10.8 % Eos % (Auto) 1.9 % Baso % (Auto) 0.5 % Neut # (Auto) 5.37 (1.8-7.7) 10^3/u L Lymph # (Auto) 1.0 (0.8-4.8) 10^3/u L Woodward # (Auto) 0.8 (0.2-0.9) 10^3/u L Eos # (Auto) 0.1 (0.0-0.8) 10^3/u L Baso # (Auto) 0.0 (0.0-0.1) 10^3/u L Nucleated RBC % (a uto) 0 % Nucleated RBCs # 0.0 /100WBC Sodium 135 L (136-145) mmol/L Potassium 4.6 (3.5-5.1) mmol/L Chloride 100 (98-107) mmol/L Carbon Dioxide 27 (22-29) mmol/L Anion Gap 12.6 (5-19) BUN 25 H (8-23) mg/dL Creatinine 1.1 (0.7-1.2) mg/dL GFR Calculation Not Reportable Glucose 100 (65-115) mg/dL Calculated Osmolal ity 284 L (285-295) mOsm/k g Calcium 8.8 (8.5-10.5) mg/dL Total Bilirubin 0.6 (0.15-1.2) mg/dL AST 19 (0-40) U/L ALT 19 (0-41) U/L Alkaline Phosphata se 98 (40-130) IU/L Troponin T Baselin e 40 H (0-15) ng/L Troponin T 120 Min [place] (0-15) ng/L Delta Troponin T (0-10) ABS# Total Protein 6.8 (6.6-8.7) g/dL Albumin 3.5 (3.5-5.2) g/dL Globulin 3.3 (1.3-4.6) g/dL Digoxin (0.6-1.2) ng/mL 10/15/20 10/15/20 Range/Units 16:19 16:33 WBC (4.0-10.0) 10^3/ uL RBC (4.1-5.3) 10^6/u L Hgb (11.7-16.6) g/dL Hct (42.0-52.0) % MCV (80-94) fL MCH (28.0-34.0) pg MCHC (30.0-36.0) g/dL RDW (12.1-15.1) % Plt Count (130-400) 10^3/c mm MPV (7.4-10.4) fL Neut % (Auto) % Lymph % (Auto) % Woodward % (Auto) % Eos % (Auto) % Baso % (Auto) % Neut # (Auto) (1.8-7.7) 10^3/u L Lymph # (Auto) (0.8-4.8) 10^3/u L [place] # (Auto) (0.2-0.9) 10^3/u L Eos # (Auto) (0.0-0.8) 10^3/u L Baso # (Auto) (0.0-0.1) 10^3/u L Nucleated RBC % (a uto) % Nucleated RBCs # /100WBC Sodium (136-145) mmol/L Potassium (3.5-5.1) mmol/L Chloride (98-107) mmol/L Carbon Dioxide (22-29) mmol/L Anion Gap (5-19) BUN (8-23) mg/dL Creatinine (0.7-1.2) mg/dL GFR Calculation Glucose (65-115) mg/dL Calculated Osmolal ity (285-295) mOsm/k g Calcium (8.5-10.5) mg/dL Total Bilirubin (0.15-1.2) mg/dL AST (0-40) U/L ALT (0-41) U/L Alkaline Phosphata se (40-130) IU/L Troponin T Baselin e (0-15) ng/L Troponin T 120 Min [place] 38.93 H (0-15) ng/L Delta Troponin T -1.07 L (0-10) ABS# Total Protein (6.6-8.7) g/dL Albumin (3.5-5.2) g/dL Globulin (1.3-4.6) g/dL Digoxin 0.9 (0.6-1.2) ng/mL Discharge Plan Discharge Patient Disposition: Home Clinical Impression: Cellulitis and abscess of leg, Atrial fibrillation, COPD (chronic obstructive pulmonary disease), Hypertension Condition: Stable Prescriptions: New Bactrim DS 800-160 mg tablet 1 tab PO BID 7 Days Qty: 14 RF: 0 No Action fluoxetine 20 mg capsule 20 mg PO DAILY@0600 RF: 0 albuterol sulfate 90 mcg/actuation HFA aerosol inhaler 1 puff INHALATION Q4H PRN (Reason: Shortness Of Breath) RF: 0 hydrocodone-acetaminophen 5-325 mg Tablet 1 tab PO Q4H PRN (Reason: Pain) RF: 0 Hold Instructions: Resume on 10/09/20. cyanocobalamin (vitamin B-12) [Vitamin B-12] 1,000 mcg Tablet 1,000 mcg PO DAILY@0600 RF: 0 spironolactone 25 mg tablet 12.5 mg PO DAILY@0600 RF: 0 losartan 25 mg Tablet 25 mg PO DAILY@0600 RF: 0 lorazepam 1 mg Tablet 1 mg PO DAILY PRN (Reason: Anxiety) RF: 0 diltiazem HCl 60 mg Tablet 60 mg PO TID@06,12,18 RF: 0 potassium chloride 20 mEq tablet extended release 20 meq PO BID@0600,1800 RF: 0 fluticasone propionate 50 mcg/actuation spray,suspension 1 spray INTRANASAL BID PRN (Reason: Allergy Symptoms) RF: 0 (DME) oxygen-air delivery systems RF: 0 celecoxib 200 mg Capsule 200 mg PO Q12H 30 Days Qty: 60 RF: 0 oxycodone 5 mg Tablet 5 mg PO Q4H PRN (Reason: Moderate Pain) Qty: 40 RF: 0 nitroglycerin [Nitrostat] 0.4 mg Tablet, Sublingual 0.4 mg SUBLINGUAL Q5M PRN (Reason: Chest Pain) RF: 0 Eliquis 5 mg tablet 5 mg PO BID@,18 RF: 0 furosemide [Lasix] 40 mg tablet 60 mg PO DAILY RF: 0 albuterol sulfate 2.5 mg /3 mL (0.083 %) Solution For Nebulization 2.5 mg INHALATION QID PRN (Reason: Shortness Of Breath) RF: 0 digoxin 125 mcg (0.125 mg) tablet 125 mcg PO DAILY@0600 RF: 0 Lipitor 40 mg tablet 40 mg PO DAILY@0600 RF: 0 Flomax 0.4 mg capsule 0.4 mg PO BID@0600,1800 RF: 0 Advair Diskus 100-50 mcg/dose blister with device 1 inh INHALATION BID@0600,1800 RF: 0 Discharge Orders: Discharge ED (Routine); Ordered 10/15/20 Ordered By: Josh Chao Referrals: Дмитрий Santiago, [Primary Care Provider] - Discharge Diet: Usual diet Patient Instructions: Opioid Safety Activity Restrictions/Additional Instructions: Case management will call to set you up with Dr. Mendez or mahendra to evaluate the pleural effusion. Follow-up with your primary care doctor in the next 4 to 5 days to reevaluate the skin infection on the leg. If it worsens return. Coding Level of Care Code ED Child Development Professor for Karen Fwd Exam Comprehensive
[2020-10-15 14:04] VITALS: BP 103/54; PULSE 70; RESP 22; TEMP 36.8; O2SAT 97; BMI 34.1
--- NOTE | 2020-10-15 14:23 | XR_ITS ---
WS: [id number] Exam: XR chest 1V portable [id number] Date/Time of Exam: 10/15/2020 2:36 PM Reason For Exam: dyspnea/cough Comparison 03/11/2020. The lungs are fully expanded. No consolidating infiltrates. Blunting of the left costophrenic angle a ppears to be secondary to pleural thickening. Calcified pleural plaque along the left diaphragm. The heart is mildly enlarged. Pulmonary vascularity slightly increased. Signs of previous CABG surgery. N o pneumothorax. The mediastinum and osseous thorax are unremarkable. XR/XR chest 1V portable [id number] IMPRESSION: 1. Cardiac enlargement with signs of CABG surgery and cardiac valve replacement . 2. Pleural thickening of the left costophrenic angle. Chronic calcified pleural plaque formation along the left diaphragm.
--- NOTE | 2020-10-15 14:23 | ECG_ITS ---
[facility] Test Date: 2020-10-15 Pat Name: Dakota Mercado Department: Room: Gender: Male Rn Occupational Health: : 1945 Requested By: Josh Anand Order Number: [id number] Reading MD: JUS ABRAHAM Measurements Intervals [place] Rate: 62 P: DE: QRS: 223 QRSD: 158 T: 46 QT: 413 QTc: 421 Interpretive Statements ATRIAL FIBRILLATION INDETERMINATE AXIS INTRAVENTRICULAR CONDUCTION DELAY [130+ ms QRS DURATION] Compared to ECG 09/22/2020 10:45:40 Indeterminate axis now present Intraventricular conduction delay now present Left bundle-branch block no longer present Electronically Signed On 10-15-2020 20:07:35 HOUSE ADMIN by JUS ABRAHAM [id number]
[2020-10-15 14:26] VITALS: BP 103/54; PULSE 64; RESP 17; O2SAT 98
[2020-10-15 14:54] VITALS: BP 125/70; PULSE 74; RESP 16; O2SAT 99
[2020-10-15] MEDS: ondansetron 2 mg/ML SDV 2 mL 4 MG IVP (14:59)
--- NOTE | 2020-10-15 14:59 | PC.NURSE ---
EKG done at 1450 and shown to ER doctor
[2020-10-15 15:00] LABS: Basophils % 0.5 %; Eosinophils # 0.1 10^3/uL (0.0-0.8); Eosinophils % 1.9 %; Hematocrit 31.7 % (42.0-52.0); Hemoglobin 9.6 g/dL (11.7-16.6); Lymphocytes % 13.8 %; Mean Corpuscular HGB Conc 30.3 g/dL (30.0-36.0); Mean Corpuscular Hemoglobin 24.1 pg (28.0-34.0); Mean Corpuscular Volume 79.4 fL (80-94); Mean Platelet Volume 10.2 fL (7.4-10.4); Monocytes # 0.8 10^3/uL (0.2-0.9); Monocytes % 10.8 %; Neutrophils # 5.37 10^3/uL (1.8-7.7); Neutrophils % 72.7 %; Nucleated Red Blood Cells % 0 %; Platelet Count 253 10^3/cmm (130-400); Red Blood Count 3.99 10^6/uL (4.1-5.3); White Blood Count 7.4 10^3/uL (4.0-10.0)
[2020-10-15 15:17] LABS: Alanine Aminotransferase 19 U/L (0-41); Albumin Level 3.5 g/dL (3.5-5.2); Alkaline Phosphatase 98 IU/L (40-130); Anion Gap 12.6 (5-19); Aspartate Amino Transferase 19 U/L (0-40); Blood Urea Nitrogen 25 mg/dL (8-23); Calcium 8.8 mg/dL (8.5-10.5); Carbon Dioxide 27 mmol/L (22-29); Chloride 100 mmol/L (98-107); Globulin 3.3 g/dL (1.3-4.6); Glucose 100 mg/dL (65-115); Osmolality Calculated 284 mOsm/kg (285-295); Potassium 4.6 mmol/L (3.5-5.1); Sodium 135 mmol/L (136-145); Total Bilirubin 0.6 mg/dL (0.15-1.2); Total Protein 6.8 g/dL (6.6-8.7)
[2020-10-15 15:18] LABS: Troponin(5th) Baseline 40 ng/L (0-15)
--- NOTE | 2020-10-15 15:21 | CTR_ITS ---
PROCEDURE INFORMATION: Exam: CT Angiography Chest With Contrast Exam date and time: 10/15/2020 4:47 PM Age: 74 years old Clinical indication: Fever and shortness of breath; Prior surgery; Surgery type: Open heart; Patient HX: Fever, SOB, recent surgery; Additional info: Dypsnea/post op TECHNIQUE: Imaging protocol: Computed tomographic angiography of the chest with contrast. 3D rendering (Not supervised by radiologist): MIP and/or 3D reconstructed images were created by the technologist. Radiation optimization: All CT scans at this facility use at least one of these dose optimization techniques: automated exposure control; mA and/or kV adjustment per patient size (includes targeted exams where dose is matched to clinical indication); or iterative reconstruction. Contrast material: OMNI 350; Contrast volume: 88 ml; Contrast route: INTRAVENOUS (IV); COMPARISON: CT angio chest PE protcl [id number] 10/31/2019 1:36 PM RADIATION DOSE METRICS: Total DLP (mGy-cm): 636.39 FINDINGS: Pulmonary arteries: Normal. No pulmonary emboli. Aorta: Diffuse atherosclerosis of thoracic aorta without aneurysm. Lungs: Severe emphysema. Smooth diffuse septal thickening. Right lower lobe compressive atelectasis. Scattered hazy ground-glass opacities in both lungs. Pleural spaces: Moderate volume right pleural effusion. Smooth linear calcified left inferior thorax pleural plaques. Heart: Mild multichamber cardiac dilation. Negative for pericardial effusion. TAVR present. CABG noted. Lymph nodes: Unremarkable. No enlarged lymph nodes. Bones/joints: Unremarkable. No acute fracture. Soft tissues: Unremarkable. CT/CT angio chest PE protcl [id number] IMPRESSION: 1. Negative for pulmonary embolism. 2. Generalized fluid overload changes in the chest with right-sided pleural effusion, most likely mild interstitial edema features. Radiation Dose CTDIVOL = (mGy): DLP = 636.39 (mGy-cm)
--- NOTE | 2020-10-15 16:23 | ECG_ITS ---
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: : 1945 Requested By: Josh Anand Order Number: [id number] Reading MD: JUS ABRAHAM Measurements Intervals [place] Rate: 70 P: ME: QRS: -26 QRSD: 157 T: 34 QT: 425 QTc: 461 Interpretive Statements ATRIAL FIBRILLATION INDETERMINATE AXIS LEFT BUNDLE BRANCH BLOCK [120+ ms QRS DURATION, 80+ ms Q/S IN V1/V2, 85+ ms R IN I/aVL/V5/V6] Compared to ECG 10/15/2020 14:50:30 Left bundle-branch block now present Intraventricular conduction delay no longer present Electronically Signed On 10-15-2020 20:08:31 MEDICAL ASSISTANT OB GYN by JUS ABRAHAM [id number]
[2020-10-15 16:41] VITALS: BP 182/96; PULSE 63; RESP 15; O2SAT 99
--- NOTE | 2020-10-15 16:52 | PC.NURSE ---
EKG done at 1640 and shown to ER doctor
[2020-10-15] MEDS: iohexol 350 mg/mL 100 mL Btl IV (17:06)
[2020-10-15 17:10] LABS: Troponin 5 2HR 38.93 ng/L (0-15)
[2020-10-15 17:12] LABS: Troponin 5 2HR Delta -1.07 ABS# (0-10)
[2020-10-15 17:50] VITALS: BP 160/104; PULSE 79; RESP 18; O2SAT 99
[2020-10-15 17:50] LABS: Digoxin 0.9 ng/mL (0.6-1.2)
[2020-10-15 18:15] VITALS: BP 188/102; PULSE 75; RESP 18; O2SAT 98
--- NOTE | 2020-10-16 13:54 | DCPLANNER ---
beef cattle farm manager had message to schedule a follow up appointment for patient with cardiology and pulmonology. After speaking with patients son, briefcase sewer was told that patient has a team of heart doctors at [facility]. beef cattle farm manager called patients floor coverer apprentice office, faxed patients information to the clinic and faxed a new referral to pulmonology for patient. beef cattle farm manager called patients son, and informed him that patients information was faxed to the clinic and a new referral was made to pulmonology for patient. The clinics will call patient with appointment information.
--- NOTE | 2020-10-23 13:11 | DCPLANNER ---
Patient has a follow up appointment scheduled for October at 11:[address]ada at [facility]. Clinic will call patient with appointment information. Patient also has a follow up appointment schedule for October at 11:[address]as at [facility]. Clinic will call patient with appointment information.
--- NOTE | 2020-11-21 14:04 | DCPLANNER ---
Patient did attend follow up appointments scheduled with [facility] and [facility].
== END 2020-10-15 18:15 | disposition home or self-care (01) ==
PROVIDERS: Emergency Provider Family Medicine; PCP Family Medicine
DX: L02.415 Cutaneous abscess of right lower limb (principal); L03.115 Cellulitis of right lower limb; I48.91 Unspecified atrial fibrillation; J44.9 Chronic obstructive pulmonary disease, unspecified; I10 Essential (primary) hypertension; Z79.01 Long term (current) use of anticoagulants; F17.210 Nicotine dependence, cigarettes, uncomplicated; M79.89 Other specified soft tissue disorders
CPT/HCPCS: 36415; 71045; 71275; 80053; 80162; 84484; 85025; 87040; 93005; 93971; 96374; 99284; J2405; Q9967

== ENCOUNTER 2020-10-18 20:18 | Inpatient (IN) | payer MEDICARE, OTHER, SELFPAY ==
[2020-10-18 20:40] VITALS: BP 126/78; PULSE 68; RESP 22; TEMP 36.7; O2SAT 97; BMI 33.2
--- NOTE | 2020-10-18 21:59 | XRR_ITS ---
PROCEDURE INFORMATION: Exam: XR Right Shoulder Exam date and time: 10/18/2020 9:59 PM Age: 74 years old Clinical indication: Injury or trauma; Fall; Blunt trauma (contusions or hematomas); Shoulder; Right TECHNIQUE: Imaging protocol: XR Right shoulder. Views: 2 or more views. COMPARISON: No relevant prior studies available. FINDINGS: Bones/joints: No acute fractures. Humeral head is mildly elevated with narrowing of the subacromial space. No joint space dislocation. Hypertrophic osseous spurring of the distal clavicle. Advanced osteoarthritis changes of the glenohumeral joint. Lungs: Emphysematous changes of the right lung. Heart/Mediastinum: Prior CABG evident. Soft tissues: Normal. XR/XR shoulder RT min 2V* [id number] IMPRESSION: Negative for acute right shoulder osseous abnormality.
--- NOTE | 2020-10-18 21:59 | XRR_ITS ---
PROCEDURE INFORMATION: Exam: XR Right Knee Exam date and time: 10/18/2020 9:59 PM Age: 74 years old Clinical indication: Injury or trauma; Fall; Blunt trauma; Knee; Right; Prior surgery; Surgery date: <1 month TECHNIQUE: Imaging protocol: XR Right knee. Views: 3 views. COMPARISON: CR XR knees AP WB w RT lmt ORTH 10/13/2020 11:53 AM FINDINGS: Bones/joints: Total arthroplasty unremarkable in alignment. No acute periprosthetic fracture. No joint effusion. Soft tissues: There is prepatellar soft tissue swelling. Vasculature: Scattered atherosclerotic calcifications. XR/XR knee RT 3V* [id number] IMPRESSION: Unremarkable appearance of the right knee arthroplasty.
[2020-10-18 23:10] VITALS: BP 133/73; PULSE 77; RESP 16; O2SAT 99
--- NOTE | 2020-10-18 23:11 | XRR_ITS ---
PROCEDURE INFORMATION: Exam: XR Right Ribs Exam date and time: 10/18/2020 11:15 PM Age: 74 years old Clinical indication: Injury or trauma; Fall; Rib area; Blunt trauma (contusions or hematomas); Prior surgery; Surgery date: 6+ months TECHNIQUE: Imaging protocol: XR Right ribs. Views: 2 views. COMPARISON: CR XR chest 1V portable [id number] 10/15/2020 2:24 PM FINDINGS: Bones/joints: No displaced rib fractures. Moderate severity arthritis of the right shoulder. Lungs: Right lung clear with emphysematous changes. Pleural space: Pleural thickening at the left lung base with linear calcifications of the pleural surface. Heart/Mediastinum: Prior CABG evident. Cardiac enlargement. TAVR noted. Soft tissues: Normal. XR/XR ribs RT 2V* [id number] IMPRESSION: 1. Negative for acute chest abnormality. 2. No change from 10/15/2020.
--- NOTE | 2020-10-18 23:11 | XRR_ITS ---
PROCEDURE INFORMATION: Exam: XR Right Tibia and Fibula Exam date and time: 10/18/2020 11:24 PM Age: 74 years old Clinical indication: Injury or trauma; Fall; Blunt trauma; Knee; Right; Prior surgery; Surgery date: <1 month TECHNIQUE: Imaging protocol: XR Right tibia and fibula. Views: 2 views. COMPARISON: CR (LOW EXM, ) 10/18/2020 11:05 PM FINDINGS: Bones/joints: No acute fractures. Partial visualization of right knee arthroplasty grossly unremarkable in alignment. Soft tissues: Normal. Vasculature: Mild scattered atherosclerotic calcification. XR/XR tibia fibula RT 2V [id number] IMPRESSION: Right tibia and fibula appear intact.
--- NOTE | 2020-10-18 23:11 | CTR_ITS ---
PROCEDURE INFORMATION: Exam: CT Head Without Contrast Exam date and time: 10/18/2020 11:26 PM Age: 74 years old Clinical indication: Injury or trauma; Blunt trauma (contusions or hematomas); Without loss of consciousness; Patient HX: Fall while walking denies loc TECHNIQUE: Imaging protocol: Computed tomography of the head without contrast. Radiation optimization: All CT scans at this facility use at least one of these dose optimization techniques: automated exposure control; mA and/or kV adjustment per patient size (includes targeted exams where dose is matched to clinical indication); or iterative reconstruction. COMPARISON: CT head wo con* [id number] 04/24/2019 10:27 AM RADIATION DOSE METRICS: Total DLP (mGy-cm): 860.24 FINDINGS: Brain: There is marked cerebral atrophy. There is moderate diffuse heterogeneity of the white matter attenuation, consistent with chronic white matter ischemic changes. No intracranial hemorrhage. No midline shift of brain. No acute brain ischemia identified. No cerebral sulcal effacement. Regan matter and white matter interfaces are preserved. Cerebral ventricles: No ventriculomegaly. Bones/joints: Unremarkable. No acute fracture. Paranasal sinuses: Visualized sinuses are unremarkable. No fluid levels. Mastoid air cells: Visualized mastoid air cells are well aerated. Auditory system: Focal opacities in the bilateral external auditory canals. Orbital cavity: Bilateral lens replacements. Orbits are symmetric. Vasculature: Scattered intracranial atherosclerosis. Soft tissues: Unremarkable. CT/CT head wo con* [id number] IMPRESSION: 1. Negative for acute intracranial abnormality. 2. No significant change from comparison on 04/24/2019. Radiation Dose CTDIVOL = (mGy): DLP = 860.24 (mGy-cm)
--- NOTE | 2020-10-18 23:11 | XRR_ITS ---
PROCEDURE INFORMATION: Exam: XR Right Femur Exam date and time: 10/18/2020 11:15 PM Age: 74 years old Clinical indication: Injury or trauma; Fall; Blunt trauma; Thigh or upper leg; Right; Prior surgery; Surgery date: <1 month TECHNIQUE: Imaging protocol: XR Right femur. Views: 2 views. COMPARISON: CR (LOW EXM, ) 10/18/2020 11:05 PM FINDINGS: Bones/joints: Moderate severity right hip joint osteoarthritis. No femur fracture. Hip joint alignment normal. Partial visualization of right knee arthroplasty. Soft tissues: Unremarkable. Vasculature: Scattered atherosclerosis. XR/XR femur RT min 2V* [id number] IMPRESSION: Unremarkable right femur.
--- NOTE | 2020-10-18 23:17 | ED_ITS ---
Documented by User: Ashley Mercado 10/19/20 01:09 HPI - Fall General: Chief Complaint: Fall Stated Complaint: RIGHT SHOULDER PAIN, RIGHT LEG PAIN Time Seen by Provider: 10/18/20 23:03 Source: patient Mode of arrival: ambulatory Limitations: physical limitation History of Present Illness: HPI Narrative: pt fell after having BM, stood up and left leg buckled under him complaint: fall Onset (ago): hour(s) (3 hours) Fall witnessed: no Loss of consciousness: None Review of Systems General: Reports: 10 or more systems reviewed and unremarkable except in HPI and below Resp: Denies: dyspnea Musc: Reports: extremity pain (right shoulder, right leg ) and joint redness (right knee and right lower extremity-post surgical ) PFSH ED PFSH: Medical History (Updated 10/19/20 @ 03:18 by Gaston Bartholomew DO) Abdominal aortic aneurysm (AAA) Anticoagulation adequate Atrial fibrillation Anticoagulated with Eliquis, BPH loc w urin obs/LUTS BPH with obstruction/lower urinary tract symptoms Elevated PSA Hematuria Metabolic alkalosis Primary osteoarthritis of left knee Primary osteoarthritis of right knee Prostatitis Respiratory failure with hypoxia Sinus pause Tobacco abuse Transaminitis Surgical History (Updated 10/19/20 @ 01:20 by Laureen Singh MD) Hx of cataract extraction Hx of heart artery stent Hx of nasal sinusotomy S/P AVR (aortic valve replacement) 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 S/P CABG (coronary artery bypass graft) S/P CABG x 2 SVG to OM1, SVG to OM2 and AVR on 08/10/2019 Status post total right knee replacement Right total knee arthroplasty Family History Brother Cancer Sister Cancer Mother Diabetes Other CAD (coronary artery disease) Social History Smoking and tobacco status: current every day smoker Quit status (tobacco): considering quitting Second hand smoke exposure: Yes Smoking risk assessment/counseling performed?: Yes Alcohol intake: former Adopted: No Caregiver/support person: No Lives independently: Yes Marital status: / Current occupational status: retired Physical Exam Const: COMMON NORMALS: no acute distress, patient oriented x3, no limitations and alert GENERAL APPEARANCE: cooperative and comfortable ORIENTATION/CONSCIOUSNESS: Yes awake, Yes oriented to person, Yes oriented to place and Yes oriented to time HENMT: COMMON NORMALS: normocephalic, external ears normal, EAC's normal, TM's normal bilaterally and Normal external nose present HEAD & SCALP: normal to inspection, normocephalic and contusion (forehead slight ecchymosis ) FACE & SINUS: normal facial exam, sinuses nontender and face symmetric NOSE: Normal external nose present, Normal nares present and No nasal discharge present EXTERNAL EAR: Yes external ears normal EXTERNAL AUDITORY CANAL: EAC's normal TYMPANIC MEMBRANE: TM's normal bilaterally MOUTH: Normal oral and palatal mucosa present, lip normal and tongue normal THROAT: posterior oropharynx normal, tonsils normal and uvula midline Eye: COMMON NORMALS: Equal, round and reactive pupils present, EOMs intact bilaterally and conjunctivae normal GENERAL EYE: appearance normal, both eyes and all related structures and normal light reflex EYELID: eyelids normal CONJUNCTIVA: Yes conjunctivae normal PUPIL: Yes Equal, round and reactive pupils present EOM: Yes EOM abnormal DIRECT OPHTHALMOSCOPY: Yes normal light reflex Neck/C-Spine: COMMON NORMALS: full ROM, no lymphadenopathy, supple, no meningeal signs, no JVD and Thyroid normal GENERAL: Yes normal visual inspection THYROID: Thyroid normal CERVICAL SPINE: Yes cervical ROM normal and Yes normal cervical lordosis Lymph: LYMPHATIC: no lymphadenopathy noted Chest: COMMONS NORMALS: normal inspection of the chest and normal palpation of entire chest wall Resp: COMMON NORMALS: normal respiratory effort and No retractions EFFORT & INSPECTION: Yes able to speak in complete sentences and Yes uses accessory muscles AUSCULTATION: diminished lung sounds Cardio: COMMON NORMALS: no JVD, regular rate, regular rhythm, S1 normal heart sound present, S2 normal heart sound present, No gallops present (Cardio), No clicks present (Cardio), No murmurs present (Cardio), No rub (Cardio) and Peripheral pulses 2+ throughout RATE: regular rate RHYTHM: regular rhythm HEART SOUNDS: S1 normal heart sound present and S2 normal heart sound present PERIPHERAL PULSES: Peripheral pulses 2+ throughout GI: COMMON NORMALS: Normal to inspection, nondistended, normoactive bowel sounds present, Soft to palpation, non-tender and no masses PALPATION: Yes Soft to palpation : COMMON NORMALS: Yes no CVA tenderness BLADDER/KIDNEY EXAM: Yes no CVA tenderness Back/Pelvis: COMMON NORMALS: no CVA tenderness, thoracic and lumbar spine normal to inspection, no thoracic nor lumbar tenderness and thoraco-lumbar ROM normal Extremity: COMMON NORMALS: normal to inspection, full ROM, capillary refill normal, no joint enlargement, no clubbing, cyanosis or edema, no calf tenderness and no pedal edema GENERAL: Yes normal exam except as noted RIGHT UPPER EXTREMITY: Yes shoulder joint (limited ROM and slight deformity ) and Yes clavicle RIGHT LOWER EXTREMITY: Yes upper leg (pain and swelling), Yes knee joint (post surgical-(Sep 30)- redness and pain ) and Yes lower leg (pain and swelling ) Neuro: COMMON NORMALS: patient oriented x3, moves all extremities, no focal motor deficits, no sensory deficits noted and gait normal SENSORIUM/ORIENTATION: Yes alert, Yes oriented to person, Yes oriented to place and Yes oriented to time MENINGEAL SIGNS: Yes no meningeal signs Psych: COMMON NORMALS: mental status grossly normal, Normal thought process present, cooperative, normal affect, speech normal and activity/motor behavior normal SPEECH: Yes normal speech THOUGHT PROCESS: Normal thought process present Skin: COMMON NORMALS: no rashes or lesions noted, no wounds and turgor normal GENERAL SKIN EXAM: no rashes or lesions noted and turgor normal Course ED course: Pt presents to ER after fall. He had surgery on right knee on Sep 30 and is now weight bearing. He was sitting to have BM, when he stood his left knee buckled and he fell on right side. He is uncomfortable and unable to distinguish where pain as he states his entire right side hurts. Pt did hit head and is on blood thinners, due to this and his age we will do a CT of head as well as xrays of his right shoulder and RLE. Reevaluation(s): Reevaluation #1: Pt CT and xrays are negative for any acute findings. He was also seen in ER a few days ago for cellulitis of the right leg but this has improved some. We will proceed with further labs as pt is too weak to bear weight at this time and family is concerned he will not be able to go home by himself. Time: 00:14 Reevaluation #2: Pt is still very weak. His CBC has improved but due to his generalized weakness, a hospital stay is warranted. He lives at home alone. Hospitalist was Dr. Armenta and is willing to assess pt for admit. Dr. Bartholoemw is my attending and aware. Care transferred to Dr. Bartholomew for admit orders. Time: 01:09 Vital Signs: Vital signs: Vital Signs Temperature 97.6 F 10/19/20 02:44 Pulse Rate 80 10/19/20 02:44 Respiratory Rate 18 10/19/20 02:44 Blood Pressure 129/76 10/19/20 02:44 Pulse Oximetry 99 10/19/20 02:44 MDM - Fall Lab Data: Labs: Lab Results 10/19/20 Range/Units 00:45 WBC 7.8 (4.0-10.0) 10^3/ uL RBC 4.08 L (4.1-5.3) 10^6/u L Hgb 9.7 L (11.7-16.6) g/dL Hct 32.7 L (42.0-52.0) % MCV 80.1 (80-94) fL MCH 23.8 L (28.0-34.0) pg MCHC 29.7 L (30.0-36.0) g/dL RDW 17.2 H (12.1-15.1) % Plt Count 256 (130-400) 10^3/c mm MPV 10.9 H (7.4-10.4) fL Neut % (Auto) 75.7 % Lymph % (Auto) 10.4 % Ballard % (Auto) 11.0 % Eos % (Auto) 1.9 % Baso % (Auto) 0.5 % Neut # (Auto) 5.91 (1.8-7.7) 10^3/u L Lymph # (Auto) 0.8 (0.8-4.8) 10^3/u L Ballard # (Auto) 0.9 (0.2-0.9) 10^3/u L Eos # (Auto) 0.2 (0.0-0.8) 10^3/u L Baso # (Auto) 0.0 (0.0-0.1) 10^3/u L Nucleated RBC % (a uto) 0 % Nucleated RBCs # 0.0 /100WBC Imaging Data^: Other Imaging: Radiologist's impression: [employer] [place] [id number] XRay Report Signed Patient: Dakota Mercado Unit #: [id number] : 1945 Age/Sex: 74 / M ADM Date: 10/18/20 Loc: ER Room/Bed: Attending Dr: Ordering Provider/Ordering MD: Gaston Bartholomew DO Date of Service: 10/18/20 Procedure(s): XR knee RT 3V* [id number] Accession Number(s): [id number] Report Number: [id number] PROCEDURE INFORMATION: Exam: XR Right Knee Exam date and time: 10/18/2020 9:59 PM Age: 74 years old Clinical indication: Injury or trauma; Fall; Blunt trauma; Knee; Right; Prior surgery; Surgery date: <1 month TECHNIQUE: Imaging protocol: XR Right knee. Views: 3 views. COMPARISON: CR XR knees AP WB w RT lmt ORTH 10/13/2020 11:53 AM FINDINGS: Bones/joints: Total arthroplasty unremarkable in alignment. No acute periprosthetic fracture. No joint effusion. Soft tissues: There is prepatellar soft tissue swelling. Vasculature: Scattered atherosclerotic calcifications. XR/XR knee RT 3V* [id number] IMPRESSION: Unremarkable appearance of the right knee arthroplasty. Dictated By: Wes Garcia Signed By: Wes Garcia Signed Date/Time: 10/18/202347 DD/ [address] [place] [id number] XRay Report Signed Patient: Dakota Mercado Unit #: [id number] : 1945 Age/Sex: 74 / M ADM Date: 10/18/20 Loc: ER Room/Bed: Attending Dr: Ordering Provider/Ordering MD: Gaston Bartholomew DO Date of Service: 10/18/20 Procedure(s): XR shoulder RT min 2V* [id number] Accession Number(s): [id number] Report Number: [id number] PROCEDURE INFORMATION: Exam: XR Right Shoulder Exam date and time: 10/18/2020 9:59 PM Age: 74 years old Clinical indication: Injury or trauma; Fall; Blunt trauma (contusions or hematomas); Shoulder; Right TECHNIQUE: Imaging protocol: XR Right shoulder. Views: 2 or more views. COMPARISON: No relevant prior studies available. FINDINGS: Bones/joints: No acute fractures. Humeral head is mildly elevated with narrowing of the subacromial space. No joint space dislocation. Hypertrophic osseous spurring of the distal clavicle. Advanced osteoarthritis changes of the glenohumeral joint. Lungs: Emphysematous changes of the right lung. Heart/Mediastinum: Prior CABG evident. Soft tissues: Normal. XR/XR shoulder RT min 2V* [id number] IMPRESSION: Negative for acute right shoulder osseous abnormality. Dictated By: Wes Garcia Signed By: Wes Garcia Signed Date/Time: 10/18/202346 DD/ [address] [address] XRay Report Signed Patient: Dakota Mercado Unit #: [id number] : 1945 Age/Sex: 74 / M ADM Date: 10/18/20 Loc: ER Room/Bed: Attending Dr: Ordering Provider/Ordering MD: Ashley Mercado NP Date of Service: 10/18/20 Procedure(s): XR tibia fibula RT 2V 77190 Accession Number(s): [id number] Report Number: [id number] PROCEDURE INFORMATION: Exam: XR Right Tibia and Fibula Exam date and time: 10/18/2020 11:24 PM Age: 74 years old Clinical indication: Injury or trauma; Fall; Blunt trauma; Knee; Right; Prior surgery; Surgery date: <1 month TECHNIQUE: Imaging protocol: XR Right tibia and fibula. Views: 2 views. COMPARISON: CR (LOW EXM, ) 10/18/2020 11:05 PM FINDINGS: Bones/joints: No acute fractures. Partial visualization of right knee arthroplasty grossly unremarkable in alignment. Soft tissues: Normal. Vasculature: Mild scattered atherosclerotic calcification. XR/XR tibia fibula RT 2V [id number] IMPRESSION: Right tibia and fibula appear intact. Dictated By: Wes Garcia Signed By: Wes Garcia Signed Date/Time: 10/18/202349 DD/ [address] [place] [address] XRay Report Signed Patient: Dakota Mercado Unit #: [id number] : 1945 Age/Sex: 74 / M ADM Date: 10/18/20 Loc: ER Room/Bed: Attending Dr: Ordering Provider/Ordering MD: Ashley Mercado CHIPPER MACHINE OPERATOR Date of Service: 10/18/20 Procedure(s): XR femur RT min 2V* [id number] Accession Number(s): [id number] Report Number: [id number] PROCEDURE INFORMATION: Exam: XR Right Femur Exam date and time: 10/18/2020 11:15 PM Age: 74 years old Clinical indication: Injury or trauma; Fall; Blunt trauma; Thigh or upper leg; Right; Prior surgery; Surgery date: <1 month TECHNIQUE: Imaging protocol: XR Right femur. Views: 2 views. COMPARISON: CR (LOW EXM, ) 10/18/2020 11:05 PM FINDINGS: Bones/joints: Moderate severity right hip joint osteoarthritis. No femur fracture. Hip joint alignment normal. Partial visualization of right knee arthroplasty. Soft tissues: Unremarkable. Vasculature: Scattered atherosclerosis. XR/XR femur RT min 2V* [id number] IMPRESSION: Unremarkable right femur. Dictated By: Wes Garcia Signed By: Wes Garcia Signed Date/Time: 2350 DD/ [address] [address] XRay Report Signed Patient: Dakota Mercado Unit #: [id number] : 1945 Age/Sex: 74 / M ADM Date: 10/18/20 Loc: ER Room/Bed: Attending Dr: Ordering Provider/Ordering MD: Ashley Mercado CHIPPER MACHINE OPERATOR Date of Service: 10/18/20 Procedure(s): XR ribs RT 2V* [id number] Accession Number(s): [id number] Report Number: [id number] PROCEDURE INFORMATION: Exam: XR Right Ribs Exam date and time: 10/18/2020 11:15 PM Age: 74 years old Clinical indication: Injury or trauma; Fall; Rib area; Blunt trauma (contusions or hematomas); Prior surgery; Surgery date: 6+ months TECHNIQUE: Imaging protocol: XR Right ribs. Views: 2 views. COMPARISON: CR XR chest 1V portable [id number] 10/15/2020 2:24 PM FINDINGS: Bones/joints: No displaced rib fractures. Moderate severity arthritis of the right shoulder. Lungs: Right lung clear with emphysematous changes. Pleural space: Pleural thickening at the left lung base with linear calcifications of the pleural surface. Heart/Mediastinum: Prior CABG evident. Cardiac enlargement. TAVR noted. Soft tissues: Normal. XR/XR ribs RT 2V* [id number] IMPRESSION: 1. Negative for acute chest abnormality. 2. No change from 10/15/2020. Dictated By: Wes Garcia Signed By: Wes Garcia Signed Date/Time: 10/18/202351 DD/ [address] [address] [address] Scan Report Signed Patient: Dakota Mercado Unit #: [id number] : 1945 Age/Sex: 74 / M ADM Date: 10/18 Loc: ER Room/Bed: Attending Dr: Ordering Provider/Ordering MD: Ashley Mercado NP Date of Service: 10/18/20 Procedure(s): CT head wo con* [id number] Accession Number(s): [id number] Report Number: [id number] PROCEDURE INFORMATION: Exam: CT Head Without Contrast Exam date and time: 10/18/2020 11:26 PM Age: 74 years old Clinical indication: Injury or trauma; Blunt trauma (contusions or hematomas); Without loss of consciousness; Patient HX: Fall while walking denies loc TECHNIQUE: Imaging protocol: Computed tomography of the head without contrast. Radiation optimization: All CT scans at this facility use at least one of these dose optimization techniques: automated exposure control; mA and/or kV adjustment per patient size (includes targeted exams where dose is matched to clinical indication); or iterative reconstruction. COMPARISON: CT head wo con* [id number] 04/24/2019 10:27 AM RADIATION DOSE METRICS: Total DLP (mGy-cm): 860.24 FINDINGS: Brain: There is marked cerebral atrophy. There is moderate diffuse heterogeneity of the white matter attenuation, consistent with chronic white matter ischemic changes. No intracranial hemorrhage. No midline shift of brain. No acute brain ischemia identified. No cerebral sulcal effacement. Regan matter and white matter interfaces are preserved. Cerebral ventricles: No ventriculomegaly. Bones/joints: Unremarkable. No acute fracture. Paranasal sinuses: Visualized sinuses are unremarkable. No fluid levels. Mastoid air cells: Visualized mastoid air cells are well aerated. Auditory system: Focal opacities in the bilateral external auditory canals. Orbital cavity: Bilateral lens replacements. Orbits are symmetric. Vasculature: Scattered intracranial atherosclerosis. Soft tissues: Unremarkable. CT/CT head wo con* [id number] IMPRESSION: 1. Negative for acute intracranial abnormality. 2. No significant change from comparison on 04/24/2019. Radiation Dose CTDIVOL = (mGy): DLP = 860.24 (mGy-cm) Dictated By: Wes Garcia Signed By: Wes Garcia Signed Date/Time: 10/18/20 2350 DD/ 2348 Discharge Plan Discharge Patient Disposition: Placed in Observation Admit Provider: Laureen Singh Clinical Impression: Cellulitis Qualifiers: Site of cellulitis of extremity: lower extremity Laterality: right Coding Level of Care Code ED Lead Quality Control Technician for [facility] Fwd Exam Comprehensive Documented by User: Gaston Bartholomew DO 10/19/20 03:19 HPI - Fall General: Chief Complaint: Fall Stated Complaint: RIGHT SHOULDER PAIN, RIGHT LEG PAIN Time Seen by Provider: 10/18/20 23:03 PFSH ED PFSH: Medical History (Updated 10/19/20 @ 03:18 by Gaston Bartholomew DO) Abdominal aortic aneurysm (AAA) Anticoagulation adequate Atrial fibrillation Anticoagulated with Eliquis, BPH loc w urin obs/LUTS BPH with obstruction/lower urinary tract symptoms Elevated PSA Hematuria Metabolic alkalosis Primary osteoarthritis of left knee Primary osteoarthritis of right knee Prostatitis Respiratory failure with hypoxia Sinus pause Tobacco abuse Transaminitis Surgical History (Updated 10/19/20 @ 01:20 by Laureen Singh MD) Hx of cataract extraction Hx of heart artery stent Hx of nasal sinusotomy S/P AVR (aortic valve replacement) 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 S/P CABG (coronary artery bypass graft) S/P CABG x 2 SVG to OM1, SVG to OM2 and AVR on 08/10/2019 Status post total right knee replacement Right total knee arthroplasty Family History Brother Cancer Sister Cancer Mother Diabetes Other CAD (coronary artery disease) Social History Smoking and tobacco status: current every day smoker Quit status (tobacco): considering quitting Second hand smoke exposure: Yes Smoking risk assessment/counseling performed?: Yes Alcohol intake: former Adopted: No Caregiver/support person: No Lives independently: Yes Marital status: / Current occupational status: retired Course Vital Signs: Vital signs: Vital Signs Temperature 97.6 F 10/19/20 02:44 Pulse Rate 80 10/19/20 02:44 Respiratory Rate 18 10/19/20 02:44 Blood Pressure 129/76 10/19/20 02:44 Pulse Oximetry 99 10/19/20 02:44 MDM - Fall MDM Narrative: Medical decision making narrative: 74-year-old male seen by RAGHAV Lozano. I agree with her history, evaluation, and treatment. This patient cannot bear weight. He is fallen frequently at home, and is quite weak. He does not have sufficient help at home, as he lives alone. He will be placed in observation. Lab Data: Labs: Lab Results 10/19/20 Range/Units 00:45 WBC 7.8 (4.0-10.0) 10^3/ uL RBC 4.08 L (4.1-5.3) 10^6/u L Hgb 9.7 L (11.7-16.6) g/dL Hct 32.7 L (42.0-52.0) % MCV 80.1 (80-94) fL MCH 23.8 L (28.0-34.0) pg MCHC 29.7 L (30.0-36.0) g/dL RDW 17.2 H (12.1-15.1) % Plt Count 256 (130-400) 10^3/c mm MPV 10.9 H (7.4-10.4) fL Neut % (Auto) 75.7 % Lymph % (Auto) 10.4 % Ballard % (Auto) 11.0 % Eos % (Auto) 1.9 % Baso % (Auto) 0.5 % Neut # (Auto) 5.91 (1.8-7.7) 10^3/u L Lymph # (Auto) 0.8 (0.8-4.8) 10^3/u L Ballard # (Auto) 0.9 (0.2-0.9) 10^3/u L Eos # (Auto) 0.2 (0.0-0.8) 10^3/u L Baso # (Auto) 0.0 (0.0-0.1) 10^3/u L Nucleated RBC % (a uto) 0 % Nucleated RBCs # 0.0 /100WBC Discharge Plan Discharge Patient Disposition: Placed in Observation Admit Provider: Laureen Singh Clinical Impression: Cellulitis Qualifiers: Site of cellulitis of extremity: lower extremity Laterality: right Coding Level of Care Code ED Lead Quality Control Technician for [facility] Fwd Exam Comprehensive
[2020-10-19] VITALS (14 sets, daily range): BP systolic 95–151; BP diastolic 62–84; PULSE 64–82; RESP 16–20; TEMP 36.4–36.7; O2SAT 93–100
[2020-10-19] MEDS: ondansetron 2 mg/ML SDV 2 mL 4 MG IVP
[2020-10-19] MEDS: morphine 4 mg/mL SDV 1 mL IVP (00:01)
[2020-10-19] MEDS: ketorolac 30 mg/mL INJ IVP (00:02)
[2020-10-19] MEDS: cyclobenzaprine 10 mg Tablet PO (00:04)
[2020-10-19 00:48] LABS: Basophils % 0.5 %; Eosinophils # 0.2 10^3/uL (0.0-0.8); Eosinophils % 1.9 %; Hematocrit 32.7 % (42.0-52.0); Hemoglobin 9.7 g/dL (11.7-16.6); Lymphocytes # 0.8 10^3/uL (0.8-4.8); Lymphocytes % 10.4 %; Mean Corpuscular HGB Conc 29.7 g/dL (30.0-36.0); Mean Corpuscular Hemoglobin 23.8 pg (28.0-34.0); Mean Corpuscular Volume 80.1 fL (80-94); Mean Platelet Volume 10.9 fL (7.4-10.4); Monocytes # 0.9 10^3/uL (0.2-0.9); Neutrophils # 5.91 10^3/uL (1.8-7.7); Neutrophils % 75.7 %; Nucleated Red Blood Cells % 0 %; Platelet Count 256 10^3/cmm (130-400); Red Blood Count 4.08 10^6/uL (4.1-5.3); Red Cell Distribution Width 17.2 % (12.1-15.1); White Blood Count 7.8 10^3/uL (4.0-10.0)
--- NOTE | 2020-10-19 01:18 | P.HP_ITS ---
Providers/Chief Complaint Primary Care Provider: Дмитрий Santiago DO Chief Complaint: RIGHT SHOULDER PAIN, RIGHT LEG PAIN History of Present Illness Dakota Mercado is a 74 year old male who has a history of chronic A. fib, anticoagulation, recently had knee replacement surgery on 09/30, presented today after a fall. Mr. Mercado is taking 21 medications at home and he lives alone. Mr. Jasso is stating that when he was in the bathroom, he just did not have enough strength to bear weight on his legs, he did not experience any chest pain, seizure-like activities or syncope, he went down to the floor and stayed on the floor for about 2 minutes until his son came to help him out. Son thought he was too weak to stay by himself and brought him to the ER. He is denying fever, chest pain, orthopnea, PND, headache, sinusitis. He is endorsing swelling of right lower extremity since his total knee arthroplasty. No purulent drainage or any active bleeding. Diagnostics in the ER revealed normal CBC, stable hemoglobin, no leukocytosis, I do not have any BMP or urinalysis which I would request, tibia-fibula x-ray, rib x-ray and head CT were unremarkable At the time my evaluation patient was resting comfortably, in the ER he was given Flexeril morphine and Zofran. Review of Systems Const: Reports: body aches, fatigue and malaise; Denies: fever(s) or chills Eyes: Denies: change in vision ENMT: Denies: throat pain Card: Denies: chest pain Resp: Denies: dyspnea GI: Denies: abdominal pain : Denies: flank pain Musc: Reports: extremity pain, extremity swelling and limited range of motion; Denies: neck pain Skin/Breast: Reports: erythema, skin pain, skin tenderness, skin swelling and changing lesions Neuro: Reports: frequent falls; Denies: headache(s) Psych: Denies: anxiety Endo: Denies: polyuria Sonu/Lymph: Denies: easy bruising All/Imm: Denies: urticaria Medications/Allergies Home Medications Medication Instructions Recorded Confirmed Last Taken Type albuterol sulfate 1 puff INHALATION Q4H PRN 08/26/19 10/15/20 10/15/20 History fluoxetine 20 mg capsule 20 mg PO DAILY@0600 10/26/19 10/15/20 10/15/20 History Eliquis 5 mg PO BID@,18 10/31/19 10/15/20 10/15/20 History nitroglycerin [Nitrostat] 0.4 mg SUBLINGUAL Q5M PRN 10/31/19 10/15/20 10/31/19 History albuterol sulfate 2.5 mg INHALATION QID PRN 03/11/20 10/15/20 09/27/20 History furosemide [Lasix] 60 mg PO DAILY 03/11/20 10/15/20 10/15/20 History cyanocobalamin (vitamin B-12) 1,000 mcg PO DAILY@0600 09/22/20 10/15/20 10/15/20 History [Vitamin B-12] diltiazem HCl 60 mg PO TID@,,09/22/20 10/15/20 10/15/20 History fluticasone propionate 1 spray INTRANASAL BID PRN 09/22/20 10/15/20 Unknown History hydrocodone-acetaminophen 1 tab PO Q4H PRN 09/22/20 10/15/20 09/01/20 History lorazepam 1 mg PO DAILY PRN 09/22/20 10/15/20 10/14/20 History losartan 25 mg PO DAILY@0600 09/22/20 10/15/20 10/15/20 History potassium chloride 20 meq PO BID@0600,1800 09/22/20 10/15/20 10/15/20 History spironolactone 12.5 mg PO DAILY@0600 09/22/20 10/15/20 10/15/20 History oxygen-air delivery systems 09/30/20 10/15/20 Unknown History celecoxib 200 mg PO Q12H 30 Days #60 cap 10/01/20 10/15/20 10/15/20 Rx oxycodone 5 mg PO Q4H PRN #40 tab 10/01/20 10/15/20 10/15/20 Rx Advair Diskus 1 inh INHALATION BID@0600,1800 10/15/20 10/15/20 10/15/20 History Flomax 0.4 mg PO BID@0600,1800 10/15/20 10/15/20 10/15/20 History Lipitor 40 mg PO DAILY@0600 02/10/15/20 10/15/20 History digoxin 125 mcg PO DAILY@0600 10/15/20 10/15/20 10/14/20 History sulfamethoxazole-trimethoprim 1 tab PO BID 7 Days #14 tab 10/15/20 Unknown Rx [Bactrim DS] Allergies Allergy/AdvReac Type Severity Reaction Status Date / Time No Known Drug Allergies Allergy Unknown Verified 10/18/20 20:46 PFSH Acute PFSH: Medical History (Updated 10/19/20 @ 02:09 by Laureen Singh MD) Abdominal aortic aneurysm (AAA) Anticoagulation adequate Atrial fibrillation Anticoagulated with Eliquis, BPH loc w urin obs/LUTS BPH with obstruction/lower urinary tract symptoms Elevated PSA Hematuria Metabolic alkalosis Primary osteoarthritis of left knee Primary osteoarthritis of right knee Prostatitis Respiratory failure with hypoxia Sinus pause Tobacco abuse Transaminitis Surgical History (Updated 10/19/20 @ 01:20 by Laureen Singh MD) Hx of cataract extraction Hx of heart artery stent Hx of nasal sinusotomy S/P AVR (aortic valve replacement) 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 S/P CABG (coronary artery bypass graft) S/P CABG x 2 SVG to OM1, SVG to OM2 and AVR on 08/10/2019 Status post total right knee replacement Right total knee arthroplasty Family History Brother Cancer Sister Cancer Mother Diabetes Other CAD (coronary artery disease) Social History Smoking and tobacco status: current every day smoker Quit status (tobacco): considering quitting Second hand smoke exposure: Yes Smoking risk assessment/counseling performed?: Yes Alcohol intake: former Adopted: No Caregiver/support person: No Lives independently: Yes Marital status: / Current occupational status: retired Vitals/I&O/Wt Last Vital Signs Temp 98.0 F 10/18/20 20:40 Pulse 77 10/19/20 00:08 Resp 18 10/19/20 00:08 BP 151/84 10/19/20 00:08 Pulse Ox 99 10/19/20 00:08 Weight last 48 hrs Weight 106.594 kg Physical Exam Narrative: EXAM NARRATIVE: Pleasant male was resting comfortably in the room No active discomfort endorsed by the patient Awake alert oriented x3 GCS 15 Appears stated age S1, S2 variable, Bilateral breath sounds without acute respiratory distress audible wheezing or stridor Distended abdomen, central obesity, bowel sound present Gynecomastia Right lower extremity nonpurulent cellulitis starting from his knee extending up to mid nguyen without any purulent drainage, edema 2+ bilaterally with pedal edema right greater than left No ischemia gangrene noted of lower extremities No neurological deficit, EOMI, PERRLA Data : 10/19/20 00:45 A&P Assessment and plan (1) Fall: Patient attributing fall to not having enough strength No active chest pain, seizure He is on multiple medications including tamsulosin higher dose which unfortunately could cause orthostatic hypotension and recent right knee arthroplasty could have contributed to his recent fall We will request physical therapy evaluation in the morning A. fib without RVR, for now I would continue his Eliquis because of his high risk of stroke due to high [id number] score, kindly reevaluate continuation of Eliquis before discharge Status: Acute (2) Cellulitis: Nonpurulent cellulitis of right lower extremity with swelling, edema 2+ Rule out DVT, discontinue celecoxib which prones him to develop venous clots, add aspirin and continue Eliquis I would also start doxycycline No signs of sepsis Septic joint not ruled out, his pain and hyperemia is getting worse will inform orthopedic surgeon Status: Acute (3) Weakness: Status: Acute Additional A&P Information Cardiac diet Preserved ejection fraction heart failure with mild exacerbation he has bilateral edema of lower extremities right greater than left continue current dose of diuretics for now, requested BNP Goals of care discussed with the patient he wishes to stay DNR/DNI DVT prophylaxis not indicated currently on Eliquis Attestations Medical Necessity Statement*: Anticipating discharge in less than 48 hours, patient does not want to go to a group home, overnight stay for generalized weakness, nonpurulent cellulitis Time Spent in Patient Care: (>than 50% of time spent in counselling and/or direct pt care on unit) . 40mins Coding Level of Care Code Acute Dairy Bar Manager for Chg Fwd Diagnoses Fall W19.XXXA Cellulitis L03.90 Weakness R53.1
--- NOTE | 2020-10-19 02:47 | USR_ITS ---
PROCEDURE INFORMATION: Exam: US Duplex Right Lower Extremity Veins, Limited Exam date and time: 10/19/2020 8:17 AM Age: 74 years old Clinical indication: Swelling (edema) of limb; Lower extremity, right; Prior surgery; Surgery date: <1 month; Surgery type: Right total knee replacement 09-30-20 TECHNIQUE: Imaging protocol: Real-time Duplex ultrasound of the Right Lower Extremity with 2-D mi scale, color Doppler flow and spectral waveform analysis with image documentation. Limited exam was focused on the right lower extremity veins. COMPARISON: No relevant prior studies available. FINDINGS: Right deep veins: Unremarkable. The common femoral, femoral, proximal profunda femoral and popliteal veins are patent without thrombus. Normal Doppler waveforms. Normal compressibility and/or augmentation response. Right superficial veins: Unremarkable. Saphenofemoral junction is patent without thrombus. Soft tissues: There is subcutaneous edema in the calf. There is an enlarged lymph node in the right groin but has a normal thin cortex with a fatty hilum. US/[place] [id number] IMPRESSION: No evidence of deep vein thrombosis.
[2020-10-19 03:46] LABS: Anion Gap 16.4 (5-19); Blood Urea Nitrogen 22 mg/dL (8-23); Calcium 8.8 mg/dL (8.5-10.5); Carbon Dioxide 22 mmol/L (22-29); Chloride 98 mmol/L (98-107); Digoxin 0.8 ng/mL (0.6-1.2); Glucose 119 mg/dL (65-115); Osmolality Calculated 278 mOsm/kg (285-295); Potassium 4.4 mmol/L (3.5-5.1); Sodium 132 mmol/L (136-145)
[2020-10-19 03:56] LABS: Thyroid Stimulating Hormone 2.02 uIU/mL (0.27-4.20)
[2020-10-19] MEDS: cyanocobalamin 1,000 mcg Tablet 1000 MCG PO (05:57)
[2020-10-19] MEDS: dilTIAZem 60 mg Tablet PO ×3 (05:57→17:55)
[2020-10-19] MEDS: apixaban 5 mg Tablet PO ×2 (05:57→17:56)
[2020-10-19] MEDS: losartan 50 mg Tablet 25 MG PO (05:57)
[2020-10-19] MEDS: tamsulosin 0.4 mg Capsule PO ×2 (05:58→17:55)
[2020-10-19] MEDS: oxyCODONE 5 mg IR Tab/Cap PO ×2 (09:08→20:44)
[2020-10-19] MEDS: aspirin 81 mg EC Tablet PO (09:08)
[2020-10-19] MEDS: potassium chloride ER 20 mEq Tablet PO (09:09)
[2020-10-19] MEDS: FUROsemide 40 mg Tablet PO (09:09)
[2020-10-19] MEDS: doxycycline 100 mg Tablet PO ×2 (09:10→17:55)
--- NOTE | 2020-10-19 09:47 | PC.NURSE ---
patient's son Surya Mercado [phone] called for update. Door To Door Salesperson notified Care nurse Martin. Nurse busy in another room. Door To Door Salesperson took name and number for return call.
--- NOTE | 2020-10-19 17:28 | PM.PN ---
Subjective Subjective: Interval history: Patient was sitting in chair complaining of right upper extremity pain. Noted improvement in right knee and lower extremity pain. Not have any fevers. No chills. Denies chest pain or shortness of breath. Medications: Reviewed: Yes Vitals/I&O/Wt Last Vital Signs Temp 98.1 F 10/19/20 20:00 Pulse 70 10/19/20 20:30 Resp 19 H 10/19/20 20:44 BP 112/65 10/19/20 20:00 Pulse Ox 96 10/19/20 20:44 10/19/20 10/19/20 10/19/20 06:59 14:59 22:59 Intake Total 480 / 480 240 / 720 Output Total 125 / 125 550 / 550 600 / 1150 Balance -125 / -125 -70 / -70 -360 / -430 Weight last 48 hrs Weight 106.594 kg Physical Exam Narrative: EXAM NARRATIVE: General- alert awake oriented sitting in chair eating lunch HEENT-grossly unremarkable CVS-S1, S2 variable, Chest- Bilateral breath sounds without acute respiratory distress audible wheezing or stridor Abdomen: central obesity, bowel sound present Extremity - Right lower extremity nonpurulent cellulitis starting from his knee extending up to mid nguyen without any purulent drainage, edema 2+ bilaterally with pedal edema right greater than left No ischemia gangrene noted of lower extremities, Decrease ROM of Right upper extremity- limited due to pain. No neurological deficit, EOMI, PERRLA Data : 10/19/20 00:45 10/18/20 23:50 A&P Assessment and plan (1) Fall: Patient attributing fall to not having enough strength No active chest pain, seizure Monitor on cardiac telemetry Right shoulder pain - OT consulted , pain control, no acute fracture on shoulder xray Check orthostatic vitals Repeat labs in AM Fall precautions Status: Acute (2) Cellulitis: Nonpurulent cellulitis of right lower extremity with swelling, edema 2+ Venous duples - Negative for DVT, aspirin was added on admission. - continue Eliquis Started on Doxycycline No signs of sepsis Septic joint not ruled out - low suspecion Consider consult with Dr. Massey - Orthopedic surgery Status: Acute Qualifiers: Laterality: right Site of cellulitis of extremity: lower extremity (3) Weakness: Status: Acute Additional A&P Information Cardiac diet DNR/DNI DVT prophylaxis not indicated currently on Eliquis Attestations Medical Necessity Statement*: Continue hospitalization for management of lower extremity cellulitis this and workup of fall Time Spent in Patient Care: Greater than 35 minutes (>than 50% of time spent in counselling and/or direct pt care on unit). Coding Level of Care Code Acute Formulator Compounder for Chg Fwd Diagnoses Fall W19.XXXA Cellulitis L03.90 Laterality: right Site of cellulitis of extremity: lower extremity Weakness R53.1
[2020-10-20] VITALS (10 sets, daily range): BP systolic 90–134; BP diastolic 56–79; PULSE 63–95; RESP 14–24; TEMP 36.4–36.8; O2SAT 93–98
--- NOTE | 2020-10-20 06:14 | PC.NURSE ---
nurse notified Dr. Singh of PT BP 90/56, new orders to hold morning doses of 60 mg Cardizem and 25 mg of Losartan received.
[2020-10-20] MEDS: apixaban 5 mg Tablet PO ×2 (06:16→18:11)
[2020-10-20] MEDS: cyanocobalamin 1,000 mcg Tablet 1000 MCG PO (06:16)
[2020-10-20] MEDS: tamsulosin 0.4 mg Capsule PO ×2 (06:16→18:11)
[2020-10-20 07:02] LABS: Basophils % 0.5 %; Eosinophils # 0.2 10^3/uL (0.0-0.8); Hematocrit 31.6 % (42.0-52.0); Hemoglobin 9.4 g/dL (11.7-16.6); Lymphocytes % 17.7 %; Mean Corpuscular HGB Conc 29.7 g/dL (30.0-36.0); Mean Corpuscular Hemoglobin 23.9 pg (28.0-34.0); Mean Corpuscular Volume 80.4 fL (80-94); Mean Platelet Volume 11.1 fL (7.4-10.4); Monocytes # 0.7 10^3/uL (0.2-0.9); Monocytes % 12.6 %; Nucleated Red Blood Cells % 0 %; Platelet Count 222 10^3/cmm (130-400); Red Blood Count 3.93 10^6/uL (4.1-5.3); Red Cell Distribution Width 17.1 % (12.1-15.1); White Blood Count 5.5 10^3/uL (4.0-10.0)
[2020-10-20 07:16] LABS: Alanine Aminotransferase 15 U/L (0-41); Albumin Level 3.6 g/dL (3.5-5.2); Alkaline Phosphatase 100 IU/L (40-130); Anion Gap 14.8 (5-19); Aspartate Amino Transferase 19 U/L (0-40); Blood Urea Nitrogen 22 mg/dL (8-23); Calcium 8.4 mg/dL (8.5-10.5); Carbon Dioxide 25 mmol/L (22-29); Chloride 99 mmol/L (98-107); Glucose 95 mg/dL (65-115); Osmolality Calculated 281 mOsm/kg (285-295); Potassium 4.8 mmol/L (3.5-5.1); Sodium 134 mmol/L (136-145); Total Bilirubin 0.7 mg/dL (0.15-1.2); Total Protein 6.6 g/dL (6.6-8.7)
[2020-10-20] MEDS: doxycycline 100 mg Tablet PO ×2 (08:18→18:11)
[2020-10-20] MEDS: potassium chloride ER 20 mEq Tablet PO (08:18)
[2020-10-20] MEDS: FUROsemide 40 mg Tablet PO (08:18)
[2020-10-20] MEDS: oxyCODONE 5 mg IR Tab/Cap PO ×2 (08:19→18:11)
--- NOTE | 2020-10-20 09:45 | PC.CHAP ---
Pastoral Care Encounter/Spiritual Assessment Type of Contact [] Declined manager social services visit [] Patient/Family/Request visit [] Outpatient visit [] Follow-up visit [] Physician referral [] Code/Alert [x] Routine visit [] Staff referral [] Actively dying [] Patient sleeping [] Family support [] [] Out of room [] Palliative care [] [] Receiving care in room [] Pre-surgical visit [] Trauma [] Long length of stay [] ICU visit [] Other: Relational/Emotional Strength [x] Patient feels connected with others/family/visitors/staff [] Distress [] Loneliness/isolation [] Abandonment Spirituality of Patient [] Person of Megan [] Attends Amish of their Megan [] Believes in Prayer [] Reads Bible or Yazidi materials [] There are Spiritual issues to be addressed High Tension Tester Interventions [x] Prayer [x] Active listening [x] Non-anxious presence [x] Spiritual/emotional support [] Crisis/trauma care [x] Spiritual counseling [] Bereavement support [] Provided bereavement packet [] Provided Bible/devotional materials [] Provided toy/stuffed animal, coloring book to patient or family member [] Provided Communion [] Anointing/[place] [] Salvation [] Completed spiritual assessment [] Other: Impact on Illness or Injury [] Angry [] Fearful [] Anxious [] Often cries [] Exhaustion [] Unable to work [] Unable to attend jewish [] Unable to walk/stand [] Unable to read [] Unable to drive [] Unable to eat/drink [] Unable to sleep [] Unable to be with family [] Patient intubated [] Other: Summary patient says doing much better Time spent with patient 10 min
[2020-10-20] MEDS: dilTIAZem 60 mg Tablet PO ×2 (11:55→18:11)
--- NOTE | 2020-10-20 21:59 | PM.PN ---
Subjective Subjective: Interval history: Continues being bothered by pain in his right shoulder, as well as pain in his knee and leg below the knee with persistent swelling. Vitals/I&O/Wt Last Vital Signs Temp 97.8 F 10/20/20 19:55 Pulse 72 10/20/20 20:06 Resp 16 10/20/20 20:06 BP 117/67 10/20/20 19:55 Pulse Ox 97 10/20/20 20:06 10/20/20 10/20/20 10/20/20 06:59 14:59 22:59 Intake Total 720 / 720 240 / 960 Output Total 350 / 2150 740 / 740 100 / 840 Balance -350 / -950 -20 / -20 140 / 120 Physical Exam Narrative: EXAM NARRATIVE: Sitting up in chair. Son is at bedside visiting. Const: COMMON NORMALS: no acute distress and patient oriented x3 HENMT: COMMON NORMALS: oropharynx normal Neck/C-Spine: COMMON NORMALS: no JVD Resp: COMMON NORMALS: normal respiratory effort and clear to auscultation bilaterally AUSCULTATION: clear to auscultation bilaterally Cardio: COMMON NORMALS: no JVD, regular rhythm, S1 normal heart sound present, S2 normal heart sound present and No murmurs present (Cardio) RHYTHM: regular rhythm HEART SOUNDS: S1 normal heart sound present and S2 normal heart sound present GI: COMMON NORMALS: Normal to inspection, nondistended, normoactive bowel sounds present, Soft to palpation and non-tender PALPATION: Yes Soft to palpation Extremity: OTHER: Right knee swelling, edema, stasis changes, minimal/very pale pinkish discoloration of lower extremity, although no clear localized erythema/warmth to the knee. Not particularly impressive for cellulitis. Right shoulder he feels is a symmetrical to the left, although I cannot necessarily say that apart from him holding it somewhat higher than the left. There is perhaps minimal edema if any. No erythema. It is not warm to touch compared to the left. Neuro: COMMON NORMALS: patient oriented x3 and moves all extremities Data : 10/20/20 04:50 10/20/20 04:50 A&P Assessment and plan (1) Fall: Persistent pain in the right knee, right shoulder. There is persistent swelling, minimal faint reddish discoloration of right lower extremity. No localized erythema, does not appear to be warmer than the left side. Wound is not open. There is no drainage. He remains afebrile. There is no leukocytosis. Currently empirically on doxycycline. Discussed with orthopedics. Will obtain MRI of the right shoulder in the morning. Right knee will be clinically assessed by surgery. He is asked to elevate right lower extremity. Will apply cold packs. Continue PT, OT. He is asked to consider discharge to rehabilitation prior to return home given generalized weakness, fall at home, risk of recurrent fall, diminished functional capacity now with knee pain and shoulder injury. Status: Acute (2) Cellulitis: Possible cellulitis, diffuse very faint pinkish/reddish discoloration, although difficult to say for may be secondary to stasis changes, does not appear to have localized changes, but extremity almost entirely affected with knee and below. Continues empirically on doxycycline. Venous duples - Negative for DVT, aspirin was added on admission. - continue Eliquis No signs of sepsis Septic joint not ruled out - low suspecion Discussed consultation with Dr. Massey - Orthopedic surgery Status: Acute Qualifiers: Laterality: right Site of cellulitis of extremity: lower extremity (3) Weakness: Status: Acute Additional A&P Information Cardiac diet DNR/DNI DVT prophylaxis not indicated currently on Eliquis Attestations Medical Necessity Statement*: Continue admission for assessment and management of right knee pain, swelling, following a fall, after recent surgery, as well as assessment of pain of the right shoulder. Treatment of possible nonpurulent cellulitis of the right lower extremity. Disposition planning. Coding Level of Care Code Acute Fast Food Shift Supervisor for Sebas Radha Diagnoses Fall W19.XXXA Cellulitis L03.90 Laterality: right Site of cellulitis of extremity: lower extremity Weakness R53.1
[2020-10-21] VITALS (8 sets, daily range): BP systolic 98–132; BP diastolic 47–87; PULSE 61–79; RESP 16–18; TEMP 36.6–36.7; O2SAT 95–98
[2020-10-21] MEDS: oxyCODONE 5 mg IR Tab/Cap PO (00:51)
[2020-10-21] MEDS: cyanocobalamin 1,000 mcg Tablet 1000 MCG PO (06:08)
[2020-10-21] MEDS: apixaban 5 mg Tablet PO (06:08)
[2020-10-21] MEDS: dilTIAZem 60 mg Tablet PO ×2 (06:09→13:08)
[2020-10-21] MEDS: losartan 50 mg Tablet 25 MG PO (06:09)
[2020-10-21] MEDS: tamsulosin 0.4 mg Capsule PO (06:09)
[2020-10-21 06:17] LABS: Basophils % 0.5 %; Eosinophils # 0.2 10^3/uL (0.0-0.8); Eosinophils % 4.1 %; Hematocrit 31.3 % (42.0-52.0); Hemoglobin 9.1 g/dL (11.7-16.6); Lymphocytes # 1.1 10^3/uL (0.8-4.8); Lymphocytes % 18.7 %; Mean Corpuscular HGB Conc 29.1 g/dL (30.0-36.0); Mean Corpuscular Volume 79.2 fL (80-94); Mean Platelet Volume 10.4 fL (7.4-10.4); Monocytes # 0.7 10^3/uL (0.2-0.9); Monocytes % 12.1 %; Neutrophils % 64.2 %; Nucleated Red Blood Cells % 0 %; Platelet Count 217 10^3/cmm (130-400); Red Blood Count 3.95 10^6/uL (4.1-5.3); Red Cell Distribution Width 16.9 % (12.1-15.1); White Blood Count 5.6 10^3/uL (4.0-10.0)
[2020-10-21 06:46] LABS: Alanine Aminotransferase 15 U/L (0-41); Albumin Level 3.4 g/dL (3.5-5.2); Alkaline Phosphatase 107 IU/L (40-130); Anion Gap 13.4 (5-19); Aspartate Amino Transferase 17 U/L (0-40); Blood Urea Nitrogen 21 mg/dL (8-23); Calcium 8.4 mg/dL (8.5-10.5); Carbon Dioxide 26 mmol/L (22-29); Chloride 101 mmol/L (98-107); Globulin 3.2 g/dL (1.3-4.6); Glucose 95 mg/dL (65-115); Osmolality Calculated 285 mOsm/kg (285-295); Potassium 4.4 mmol/L (3.5-5.1); Sodium 136 mmol/L (136-145); Total Bilirubin 0.7 mg/dL (0.15-1.2); Total Protein 6.6 g/dL (6.6-8.7)
[2020-10-21] MEDS: albuterol 8 gm MDI 1 PUFF INHALATION (07:29)
--- NOTE | 2020-10-21 08:00 | MR_ITS ---
WS: [id number] MRI RIGHT SHOULDER HISTORY: Fall, shoulder pain, asymmetry COMPARISON: 01/19/2012 TECHNIQUE: Multiplanar sequences of the shoulder joint are submitted. Severe AC joint hypertrophy. Narrowing of the AC joint with hypertrophic osteophytes encroaching upon the supraspinatus and deformity. Small amount of fluid in the subacromial subdeltoid bursa. No os ac romion. Biceps tendon is not identified in the bicipital groove. Biceps tendon is dislocated and poss ibly torn. Marked soft tissue thickening surrounding the humeral head changes of synovitis and advanced osteoart hritis. Humeral head is slightly high riding from the glenoid with moderate to severe narrowing of th e glenohumeral joint. Numerous subchondral cystic changes along the surface of the glenoid. Moderate atrophy of the supraspinatus and subscapularis muscles with edema. Insertion site tears in the distal tendon with tendinopathy. Large insertion site tear of the subscapularis tendon. Smaller tear at the supraspinatus insertion. The infraspinatus tendon does appear to be intact. MR/MR shoulder RT wo con* [id number] IMPRESSION: 1. Advanced degenerative changes at the glenohumeral joint. 2. Insertion site tears with interstitial extension involving the supraspinatu s and subscapularis tendons. Muscle atrophy and edema. 3. Severe AC joint hypertrophy with encroachment upon the rotator cuff. 4. Dislocated and possibly torn biceps tendon.
[2020-10-21] MEDS: doxycycline 100 mg Tablet PO (08:06)
[2020-10-21] MEDS: aspirin 81 mg EC Tablet PO (08:06)
[2020-10-21] MEDS: potassium chloride ER 20 mEq Tablet PO (08:06)
[2020-10-21] MEDS: FUROsemide 40 mg Tablet PO (08:06)
--- NOTE | 2020-10-21 09:51 | PC.NURSE ---
Patient to go to MRI of right shoulder today at 10:15. Right knee minimally swollen. Lower right leg reddened. Right leg above the knee is the only pain reported and Dr. Massey rounded and explained it being muscle pain. Patient up to chair at this time. Refused to lay in bed to elevate extremity and removed his ice placed on his knee. Will get recliner and take chair out of room. Educated patient that Dr ordered ICE and elevation of extremity and the healing process.
--- NOTE | 2020-10-21 10:25 | PM.CONSULT ---
Providers/Reason For Consult Consulting Physican/Specialty*: Dr. Brandee Massey - Orthopedics Reason for Consult*: Right leg pain following a fall after right total knee arthroplasty, right shoulder pain following the same fall. Attending Physician: Mannie Bonilla Primary Care Provider: Дмитрий Santiago DO History of Present Illness History of Present Illness Dakota Mercado is a 74 year old male who underwent right total knee arthroplasty on September 30, 2020. He was seen postoperatively in my office on October 13. He did have some swelling in his leg and actually had a venous Doppler which was negative. The patient was seen in the emergency department on October 15 complaining of right knee swelling and tenderness to touch. He was on Eliquis following his surgical intervention. The time he was evaluated, there was no evidence of infection. He was discharged home with instructions to keep the leg elevated. He was also diagnosed with a pleural effusion at that time. He presented to the emergency department again on October 18, and at that time, he was admitted to the hospital as he had had a fall noting that his leg buckled. The patient injured his shoulder at that time and hit his head. He had a CT of his head which was negative for any acute findings. Multiple images were obtained and these have been reviewed. There was no evidence of acute fracture. The patient was placed under observation status and I was consulted to evaluate the patient for possible injury to his knee. Also, he has MRI pending of the shoulder. Any sort of shoulder treatment would be accomplished as an outpatient. Review of Systems General: Reports: 10 or more systems reviewed and unremarkable except in HPI and below Const: Reports: body aches, fatigue and malaise; Denies: fever(s) or chills Eyes: Denies: change in vision ENMT: Denies: throat pain Card: Denies: chest pain Resp: Denies: dyspnea GI: Denies: abdominal pain : Denies: flank pain Musc: Reports: extremity pain, extremity swelling, joint redness (right knee and right lower extremity-post surgical ) and limited range of motion; Denies: neck pain Skin/Breast: Reports: erythema, skin pain, skin tenderness, skin swelling and changing lesions Neuro: Reports: frequent falls; Denies: headache(s) Psych: Denies: anxiety Endo: Denies: polyuria Sonu/Lymph: Denies: easy bruising All/Imm: Denies: urticaria Meds/Allergies Home Medications and Allergies Home Medications Medication Instructions Recorded Confirmed Last Taken Type albuterol sulfate 2 puff INHALATION Q4H PRN 08/26/19 10/19/20 10/18/20 History fluoxetine 20 mg capsule 20 mg PO DAILY@0600 10/26/19 10/19/20 10/18/20 History Eliquis 5 mg PO BID@06,18 10/31/19 10/19/20 10/18/20 History nitroglycerin [Nitrostat] 0.4 mg SUBLINGUAL Q5M PRN 10/31/19 10/19/20 10/31/19 History albuterol sulfate 2.5 mg INHALATION QID PRN 03/11/20 10/19/20 10/18/20 History furosemide [Lasix] 60 mg PO DAILY@0600,1800 03/11/20 10/19/20 10/18/20 History cyanocobalamin (vitamin B-12) 1,000 mcg PO DAILY@0600 09/22/20 10/19/20 10/18/20 History [Vitamin B-12] diltiazem HCl 60 mg PO TID@06,12,18 09/22/20 10/19/20 10/18/20 History fluticasone propionate 1 spray INTRANASAL BID PRN 09/22/20 10/19/20 Unknown History hydrocodone-acetaminophen 1 tab PO Q4H PRN 09/22/20 10/19/20 09/01/20 History lorazepam 1 mg PO DAILY PRN 09/22/20 10/19/20 10/18/20 History losartan 25 mg PO DAILY@0600 09/22/20 10/19/20 10/18/20 History potassium chloride 20 meq PO BID@0600,1800 09/22/20 10/19/20 10/18/20 History spironolactone 12.5 mg PO DAILY@0600 09/22/20 10/19/20 10/18/20 History oxygen-air delivery systems 09/30/20 10/19/20 Unknown History digoxin 125 mcg PO DAILY@0600 10/15/20 10/19/20 10/18/20 History fluticasone propion-salmeterol 1 inh INHALATION BID@0600,1800 02/10/19/20 10/18/20 History [Advair Diskus] tamsulosin [Flomax] 0.4 mg PO BID@0600,1800 10/15/20 10/19/20 10/18/20 History atorvastatin 40 mg PO BEDTIME@199910/19/20 10/19/20 10/18/20 History celecoxib 200 mg PO BID@0600,1800 10/19/20 10/19/20 10/18/20 History sulfamethoxazole-trimethoprim 1 tab PO BID 10/19/20 10/19/20 Unknown History Allergies Allergy/AdvReac Type Severity Reaction Status Date / Time No Known Drug Allergies Allergy Unknown Verified 10/18/20 20:46 Current Medications Current Medications Generic Name Dose Route Start Last Admin Trade Name Freq PRN Reason Stop Dose Admin Albuterol Sulfate 1 puff 10/19/20 02:47 10/21/20 07:29 Albuterol 8 Gm Mdi INHALATION 1 puff Q4H PRN Administration Shortness Of Breath Apixaban 5 mg 10/19/20 06:00 10/21/20 06:08 Apixaban 5 Mg Tablet PO 5 mg BID@ CHLOE Administration Aspirin 81 mg 10/19/20 09:00 10/21/20 08:06 Aspirin 81 Mg Ec Tablet PO 81 mg DAILY CHLOE Administration Cyanocobalamin 1,000 mcg 10/19/20 06:00 10/21/20 06:08 Cyanocobalamin 1,000 Mcg Tablet PO 1,000 mcg DAILY@0600 CHLOE Administration Diltiazem HCl 60 mg 10/19/20 06:00 10/21/20 06:09 Diltiazem 60 Mg Tablet PO 60 mg TID@ CHLOE Administration Doxycycline Monohydrate 100 mg 10/19/20 09:00 10/21/20 08:06 Doxycycline 100 Mg Tablet PO 100 mg BID CHLOE Administration Protocol Furosemide 40 mg 10/19/20 09:00 10/21/20 08:06 Furosemide 40 Mg Tablet PO 40 mg DAILY CHLOE Administration Losartan Potassium 25 mg 10/19/20 06:00 10/21/20 06:09 Losartan 50 Mg Tablet PO 25 mg DAILY@0600 CHLOE Administration Oxycodone HCl 5 mg 10/19/20 02:47 10/21/20 00:51 Oxycodone 5 Mg Ir Tab/Cap PO 5 mg Q4H PRN Administration Moderate Pain Potassium Chloride 20 meq 10/19/20 09:00 10/21/20 08:06 Potassium Chloride Er 20 Meq Tablet PO 20 meq DAILY CHLOE Administration Tamsulosin HCl 0.4 mg 10/19/20 06:00 10/21/20 06:09 Tamsulosin 0.4 Mg Capsule PO 0.4 mg BID@0600,1800 CHLOE Administration PFSH Acute PFSH: Medical History Abdominal aortic aneurysm (AAA) Anticoagulation adequate Atrial fibrillation Anticoagulated with Eliquis, BPH loc w urin obs/LUTS BPH with obstruction/lower urinary tract symptoms Elevated PSA Hematuria Metabolic alkalosis Primary osteoarthritis of left knee Primary osteoarthritis of right knee Prostatitis Respiratory failure with hypoxia Sinus pause Tobacco abuse Transaminitis Surgical History Hx of cataract extraction Hx of heart artery stent Hx of nasal sinusotomy S/P AVR (aortic valve replacement) 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 S/P CABG (coronary artery bypass graft) S/P CABG x 2 SVG to OM1, SVG to OM2 and AVR on 08/10/2019 Status post total right knee replacement Right total knee arthroplasty Family History Brother Cancer Sister Cancer Mother Diabetes Other CAD (coronary artery disease) Social History Smoking and tobacco status: current every day smoker Quit status (tobacco): considering quitting Second hand smoke exposure: Yes Smoking risk assessment/counseling performed?: Yes Alcohol intake: former Adopted: No Caregiver/support person: No Lives independently: Yes Marital status: / Current occupational status: retired Dietary Habits: Current diet type/program: regular Caffeine: Yes Exercise: What type of physical activity do you participate in?: none Safety: Seatbelt use: always Home Safety: Working smoke detector in home: Yes Fire extinguisher in home: Yes Carbon monoxide detector in home: Yes Vitals/I&O/Wt Last Vital Signs Temp 97.8 F 10/21/20 07:35 Pulse 61 10/21/20 07:35 Resp 16 10/21/20 07:35 BP 98/60 03/02/21 07:35 Pulse Ox 95 10/21/20 07:35 10/20/20 10/21/20 10/21/20 22:59 06:59 14:59 Intake Total 240 / 960 Output Total 100 / 840 850 / 1690 200 / 200 Balance 140 / 120 -850 / -730 -200 / -200 Physical Exam Narrative: EXAM NARRATIVE: At the time of evaluation, the patient is sitting up in a chair. He complains of knee pain and swelling, but the swelling is actually considerably less than it was in the office visit just less than a week ago. Additionally, the patient complains of shoulder pain, but he is sitting comfortably without it immobilized. Shoulder is not further evaluated secondary to the pending MRI. Const: COMMON NORMALS: no acute distress, average body habitus, patient oriented x3 and alert GENERAL APPEARANCE: cooperative and comfortable ORIENTATION/CONSCIOUSNESS: Yes awake HENMT: COMMON NORMALS: normocephalic and atraumatic HEAD & SCALP: normocephalic and atraumatic Eye: GENERAL EYE: appearance normal, both eyes and all related structures Chest: COMMONS NORMALS: normal inspection of the chest Resp: COMMON NORMALS: normal respiratory effort EFFORT & INSPECTION: Yes able to speak in complete sentences and Yes symmetric chest movement Extremity: RIGHT UPPER EXTREMITY: Yes shoulder joint (Tenderness to palpation. Range of motion not evaluated.) RIGHT LOWER EXTREMITY: Yes knee joint (Status post total knee arthroplasty with expected swelling. No cellulitis.) Right knee: Yes inspection (There is some swelling of the lower extremity.), Yes palpation (Tenderness to palpation about the knee as expected.), Yes ROM (Actively extends to 10 degrees short of full extension) and Yes neurovascular exam (Intact with a soft and nontender calf) Neuro: COMMON NORMALS: patient oriented x3 SENSORIUM/ORIENTATION: Yes alert Psych: COMMON NORMALS: mental status grossly normal APPEARANCE: Yes grossly normal ATTITUDE: Yes calm and Yes engaged ATTENTION/CONCENTRATION: Yes attention grossly intact Skin: COMMON NORMALS: no rashes or lesions noted GENERAL SKIN EXAM: no rashes or lesions noted Data Imaging^: Xray Ortho: I personally reviewed and interpreted this imaging study as follows: My impression: Patient's right total knee remains in good position and alignment. Imaging studies including the femur, knee, and tib-fib are all negative for acute findings such as fracture or dislocation. Right shoulder: I personally reviewed and interpreted this imaging study as follows: My impression: Patient has significant degenerative osteoarthritic change within the right shoulder. There is evidence of rotator cuff arthropathy with no evidence of acute fracture or dislocation. A&P Assessment and plan (1) Status post total right knee replacement: Patient has swelling as expected following total knee arthroplasty. When seen in the office, he had even more swelling as he has not been keeping his leg elevated. I have stressed to him the importance of elevation with regard to the swelling. He notes that he prefers to sit in a chair, but he is cautioned against extended sitting. He is also to keep ice on the knee. He may remain weightbearing as tolerated based on his imaging studies. Status: Acute (2) Right shoulder pain: The hospitalist team, and any sort of treatment for the shoulder would likely be as an outpatient once the patient is further out from his total knee arthroplasty. I will review the MRI as well, but we will plan to see him in a couple weeks in the office. He may wear a sling in the meantime for comfort, although this may impact his balance with his knee replacement. He will continue to work with home therapy with regard to his knee, and hopefully, they will be able to ambulate him without significant assistance.X-rays demonstrate findings consistent with rotator cuff arthropathy. The patient is having an MRI today, and this is not completed at the time of the patient's consultation. Status: Acute Consult Attestations Medical Necessity Statement: Per Hospitalist team. Time Spent in Patient Care: Greater than 35 minutes (Evaluation of patient, evaluation of studies, and dictation.) Coding Level of Care Code Acute Seafood Technology Specialist for [facility] Fwd Exam Detailed Diagnoses Status post total right knee replacement Z96.651 Right shoulder pain M25.511
--- NOTE | 2020-10-21 15:21 | PC.NURSE ---
IV removed from patients left forearm. Patient tolerated well. 2x2 and coban applied. Medications sent to pharmacy. 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
--- NOTE | 2020-10-21 22:07 | P.DS_ITS ---
Discharge Providers Date of Admission: 10/19/20 19:00 Date of Discharge: October 21, 2020 Attending Provider at Admission: Laureen Singh MD Attending Provider at Discharge: Mannie Bonilla Primary Care Provider: Дмитрий Santiago DO Diagnoses at Discharge Discharge Diagnosis (1) Status post total right knee replacement: Status: Acute Permanent problem details: Right total knee arthroplasty (2) Right shoulder pain: Status: Acute Reason for Visit Reason for Visit: RIGHT SHOULDER PAIN, RIGHT LEG PAIN Hospital Course Hospital Course Pleasant 74-year-old gentleman who recently underwent right knee replacement 09/30, presents to the hospital after a fall, with noted persistent swelling of the knee and lower extremity below, reportedly with a fall happening after he lost strength in his leg. On further clarification prior to discharge he reported that he was using a walker on which one of the brakes is not working. While falling he also injured his shoulder, and with persistent pain in his knee and shoulder on the right side, came for evaluation to ER. Plain x-ray imaging did not show any fracture in the knee or shoulder. Due to persistent lower extremity edema, faint erythema, he was empirically treated with doxycycline for possible nonpurulent cellulitis component. Due to chronic diastolic congestive heart failure possibly with mild exacerbation was continued on oral diuretic, 40 mg Lasix daily. This appeared to work well for diuresis for him in the hospital. He was maintained on cardiac diet. Symptoms in the right lower extremity gradually proved to be improving. With pain improving. He was assessed by orthopedic surgery and on examination swelling actually has been chronic and in fact progressively proving compared to prior. As symptomatically he continues to improve, he was cleared for discharge with outpatient follow-up. Lower extremity duplex study negative for DVT. He did undergo additional evaluation of shoulder by MRI due to being bothered by pain, as well as due to needing walker for mobility. No acute fracture or dislocation noted, however, noted a number of chronic changes with advanced degenerative disease of glenohumeral joint, insertion site tears with interstitial extension involving supraspinatus and subscapularis tendons. Muscle atrophy and edema. Severe AC joint hypertrophy with encroachment upon the rotator cuff. Dislocated and possibly torn bicep tendon. As per discussion with orthopedics these will be additionally assessed during the outpatient visit. On several occasions placement to residential facility due to fall risk, and for additional rehabilitation has been recommended and discussed with patient and family. He declined. He ambulated with a walker in the hospital, and felt secure in discharging home. Again counseled to continue to use a walker, and avoid the walker with nonfunctional break. Probability of joint infection at this time considered low. He will complete antibiotic course for possible superimposed cellulitis. Physical Exam Narrative: EXAM NARRATIVE: Sitting up in chair. Son is at bedside visiting. Const: COMMON NORMALS: no acute distress and patient oriented x3 HENMT: COMMON NORMALS: oropharynx normal Neck/C-Spine: COMMON NORMALS: no JVD Resp: COMMON NORMALS: normal respiratory effort and clear to auscultation bilaterally AUSCULTATION: clear to auscultation bilaterally Cardio: COMMON NORMALS: no JVD, regular rhythm, S1 normal heart sound present, S2 normal heart sound present and No murmurs present (Cardio) RHYTHM: regular rhythm HEART SOUNDS: S1 normal heart sound present and S2 normal heart sound present GI: COMMON NORMALS: Normal to inspection, nondistended, normoactive bowel sounds present, Soft to palpation and non-tender PALPATION: Yes Soft to pal pation Extremity: COMMON NORMALS: no joint enlargement and no pedal edema OTHER: Right knee swelling, edema, stasis changes, minimal if any pinkish discoloration of lower extremity, although no clear localized erythema/warmth to the knee. Not particularly impressive for cellulitis. Right shoulder he feels is a symmetrical to the left, although I cannot necessarily say that apart from him holding it somewhat higher than the left. There is perhaps minimal edema if any. No erythema. It is not warm to touch compared to the left. Neuro: COMMON NORMALS: patient oriented x3 and moves all extremities Skin: COMMON NORMALS: no rashes or lesions noted GENERAL SKIN EXAM: no rashes or lesions noted Discharge Data Data Completed and Pending: Completed Studies During Hospitalization Category Date Time Status CT head wo con* 7 0450 Urgent Cat Scan 10/18/20 23:11 Completed XR femur RT min 2 V* [id number] Stat Exams 10/18/20 23:11 Completed XR knee RT 3V* 73 562 Stat Exams 10/18/20 21:59 Completed XR ribs RT 2V* 71 100 Stat Exams 10/18/20 23:11 Completed XR shoulder RT mi n 2V* [id number] Stat Exams 10/18/20 21:59 Completed XR tibia fibula R T 2V [id number] Stat Exams 10/18/20 23:11 Completed MR shoulder RT wo con* [id number] Urgent MRI 10/21/20 08:00 [place] [id number] Routin e Ultrasound 10/19/20 02:47 Completed Pending at discharge Category Date Time Status Urinalysis Stat Lab 10/19/20 01:21 Ordered Labs from last 24 hours 10/21/20 10/21/20 05:30 05:30 WBC 5.6 RBC 3.95 L Hgb 9.1 L Hct 31.3 L MCV 79.2 L MCH 23.0 L MCHC 29.1 L RDW 16.9 H Plt Count 217 MPV 10.4 Neut % (Auto) 64.2 Lymph % (Auto) 18.7 [place] % (Auto) 12.1 Eos % (Auto) 4.1 Baso % (Auto) 0.5 Neut # (Auto) 3.60 Lymph # (Auto) 1.1 [place] # (Auto) 0.7 Eos # (Auto) 0.2 Baso # (Auto) 0.0 Nucleated RBC % (a uto) 0 Nucleated RBCs # 0.0 Sodium 136 Potassium 4.4 Chloride 101 Carbon Dioxide 26 Anion Gap 13.4 BUN 21 Creatinine 0.8 GFR Calculation Not Reportable Glucose 95 Calculated Osmolal ity 285 Calcium 8.4 L Total Bilirubin 0.7 AST 17 ALT 15 Alkaline Phosphata se 107 Total Protein 6.6 Albumin 3.4 L Globulin 3.2 Vitals: Last Vital Signs Temp 97.8 F 10/21/20 15:24 Pulse 73 10/21/20 15:24 Resp 17 10/21/20 15:24 BP 126/79 10/21/20 15:24 Pulse Ox 97 10/21/20 15:24 Discharge Plan Discharge Patient Disposition: Home Health Service Condition: Stable Prescriptions: New doxycycline monohydrate 100 mg Tablet 100 mg PO BID Qty: 10 RF: 0 aspirin 81 mg Tablet,Delayed Release (Dr/Ec) 81 mg PO DAILY Qty: 30 RF: 0 Continued fluoxetine 20 mg capsule 20 mg PO DAILY@0600 RF: 0 albuterol sulfate 90 mcg/actuation HFA aerosol inhaler 2 puff INHALATION Q4H PRN (Reason: Shortness Of Breath) RF: 0 hydrocodone-acetaminophen 5-325 mg Tablet 1 tab PO Q4H PRN (Reason: Pain) RF: 0 Hold Instructions: Resume on 10/09/20. cyanocobalamin (vitamin B-12) [Vitamin B-12] 1,000 mcg Tablet 1,000 mcg PO DAILY@0600 RF: 0 spironolactone 25 mg tablet 12.5 mg PO DAILY@0600 RF: 0 losartan 25 mg Tablet 25 mg PO DAILY@0600 RF: 0 lorazepam 1 mg Tablet 1 mg PO DAILY PRN (Reason: Anxiety) RF: 0 diltiazem HCl 60 mg Tablet 60 mg PO TID@,, RF: 0 potassium chloride 20 mEq tablet extended release 20 meq PO BID@0600,1800 RF: 0 fluticasone propionate 50 mcg/actuation spray,suspension 1 spray INTRANASAL BID PRN (Reason: Allergy Symptoms) RF: 0 (DME) oxygen-air delivery systems RF: 0 nitroglycerin [Nitrostat] 0.4 mg Tablet, Sublingual 0.4 mg SUBLINGUAL Q5M PRN (Reason: Chest Pain) RF: 0 Eliquis 5 mg tablet 5 mg PO BID@18 RF: 0 furosemide [Lasix] 40 mg tablet 60 mg PO DAILY@0600,1800 RF: 0 albuterol sulfate 2.5 mg /3 mL (0.083 %) Solution For Nebulization 2.5 mg INHALATION QID PRN (Reason: Shortness Of Breath) RF: 0 digoxin 125 mcg (0.125 mg) tablet 125 mcg PO DAILY@0600 RF: 0 tamsulosin [Flomax] 0.4 mg capsule 0.4 mg PO BID@0600,1800 RF: 0 fluticasone propion-salmeterol [Advair Diskus] 100-50 mcg/dose blister with device 1 inh INHALATION BID@0600,1800 RF: 0 atorvastatin 40 mg tablet 40 mg PO BEDTIME@1999 RF: 0 Discontinued celecoxib 200 mg capsule 200 mg PO BID@0600,1800 RF: 0 sulfamethoxazole-trimethoprim 800-160 mg tablet 1 tab PO BID RF: 0 Discharge Orders: Discharge Order (Routine); Ordered 10/21/20 Ordered By: Mannie Bonilla Referrals: [facility] [Outside] Brandee Massey MD [Physician] - 11/03/20 11:45 am Дмитрий Santiago DO [Primary Care Provider] - 10/29/20 1:10 pm Discharge Diet: Cardiac Discharge Activity: Increase activity as tolerated, Limit activity as instructed, Use walker/crutches as instructed, As per PT/OT instructions and Oxygen as instructed Patient Instructions: Cellulitis, Doxycycline (By mouth), Aspirin (By mouth) Activity Restrictions/Additional Instructions: Elevate your leg above heart level as much as possible to continue to decrease swelling. Apply cold pack at home as needed for symptoms. Please maintain very strict fall precautions. Please do not use the walker with nonfunctioning break. Please use walker at all times. Please follow-up with orthopedics in office with regards to your knee, as well as chronic changes and injury of your shoulder. Continue oxygen as previously. Discharge Attestations Time Spent in Discharge Care*: greater than 30 min Quality Metrics Clinical Quality Measures During this hospital stay, did patient experience: None Coding Level of Care Code Acute Microfilm Camera Operator for Karen Garcia Diagnoses Status post total right knee replacement Z96.651 Right shoulder pain M25.511
== END 2020-10-21 15:25 | disposition home health service (06) | DRG 602 ==
LOC: ER 23:03 → MEDSURG 10-19 01:46
PROVIDERS: Hospitalist; Admitting Provider Internal Medicine; Emergency Provider Nurse Practitioner Family; PCP Family Medicine; Visit Provider Internal Medicine
DX: L03.115 Cellulitis of right lower limb (principal); I50.33 Acute on chronic diastolic (congestive) heart failure; I48.20 Chronic atrial fibrillation, unspecified; Z96.651 Presence of right artificial knee joint; W19.XXXA Unspecified fall, initial encounter; I71.4 Abdominal aortic aneurysm, without rupture; N40.1 Benign prostatic hyperplasia with lower urinary tract symptoms; R97.20 Elevated prostate specific antigen [PSA]; M17.0 Bilateral primary osteoarthritis of knee; F17.210 Nicotine dependence, cigarettes, uncomplicated; I25.10 Atherosclerotic heart disease of native coronary artery without angina pectoris; Z95.5 Presence of coronary angioplasty implant and graft; Z95.1 Presence of aortocoronary bypass graft; Z95.2 Presence of prosthetic heart valve; R53.1 Weakness; M25.511 Pain in right shoulder; M19.011 Primary osteoarthritis, right shoulder; Z79.51 Long term (current) use of inhaled steroids; Z79.891 Long term (current) use of opiate analgesic
CPT/HCPCS: 36415; 70450; 71100; 73030; 73221; 73552; 73562; 73590; 80048; 80053; 80162; 84443; 85025; 93971; 94640; 96374; 96375; 97110; 97116; 97162; 99285; G0378; J1885; J2270; J2405; J3535

== ENCOUNTER → 2020-11-03 12:30 | Outpatient (BNVA) | payer MEDICARE, OTHER, SELFPAY | PROVIDERS: PCP Family Medicine; Visit Provider Specialist | DX: Z96.651 Presence of right artificial knee joint (principal); M17.11 Unilateral primary osteoarthritis, right knee | CPT/HCPCS: 73560; 73565 ==